=== PATIENT | male | born 1945 | race Two or more races ===

== ENCOUNTER 2016-08-18 09:40 | Outpatient (CLI) | payer MEDICARE, MEDICAID ==
[~2016-08-18 09:40] MED LIST: ALFU10TA PO; AMLO5TAB2 PO; ATOR40TA PO; CALC667C PO; CARV25TA PO; CLON0.5T4 PO; DIVA250T PO; ESOM40CA PO; FOLI0.8T23 PO; FURO80TA3 PO; INSU100V13 SQ; METO10TA8 PO; ONDA-25 PO; SEVE800T8 PO; SUCR1TAB PO; VILA40TA PO; ZOLP10TA6 PO
== END 2016-08-18 23:59 | disposition home or self-care (01) ==
LOC: WOU 09:40
PROVIDERS: ATTEND Podiatrist Foot & Ankle Surgery
DX: E11.621 Type 2 diabetes mellitus with foot ulcer (principal); L97.412 Non-pressure chronic ulcer of right heel and midfoot with fat layer exposed; E11.42 Type 2 diabetes mellitus with diabetic polyneuropathy; Z89.411 Acquired absence of right great toe; Z79.84 Long term (current) use of oral hypoglycemic drugs; Z79.899 Other long term (current) drug therapy; E11.22 Type 2 diabetes mellitus with diabetic chronic kidney disease; I12.0 Hypertensive chronic kidney disease with stage 5 chronic kidney disease or end stage renal disease; N18.6 End stage renal disease; Z99.2 Dependence on renal dialysis; Z83.3 Family history of diabetes mellitus; E11.52 Type 2 diabetes mellitus with diabetic peripheral angiopathy with gangrene
CPT/HCPCS: 11042; A6402

== ENCOUNTER 2016-08-21 12:34 | Inpatient (IN) | payer MEDICARE, MEDICAID ==
[~2016-08-21] VITALS: Ht 167.6 cm; Wt 103.4 kg
[2016-08-21] VITALS: BP 143/75
[2016-08-21 13:38] LABS: ANION GAP 17 (5-14); CALCIUM, SERUM 9.1 mg/dL (8.5-10.1); CARBON DIOXIDE 25 mmol/L (21-32); CHLORIDE 101 mmol/L (98-107); GFR 7 mL/min (>60); GLUCOSE 149 mg/dL (74-106); POTASSIUM 5.2 mmol/L (3.5-5.1); SODIUM SERUM 137 mmol/L (136-145); UREA NITROGEN, BLOOD 66 mg/dL (7-18)
[2016-08-21 13:42] LABS: CREATININE 7.8 mg/dL (0.6-1.3)
[2016-08-21 13:44] LABS: ALANINE AMINOTRANSFERASE 12 U/L (12-78); ALBUMIN 3.2 g/dL (3.4-5.0); ASPARTATE AMINOTRANSFERASE 9 U/L (15-37); BILIRUBIN,DIRECT 0.1 mg/dL (0.0-0.2); BILIRUBIN,TOTAL 0.2 mg/dL (0.2-1.0); INDIRECT BILIRUBIN 0.1 mg/dL (0.0-1.1); TOTAL PROTEIN, SERUM 6.7 g/dL (6.4-8.2)
[2016-08-21 13:46] LABS: TROPONIN I < 0.017 ng/mL (0.00-0.056)
[2016-08-21 13:56] LABS: INR 1.06 (0.87-1.13); PROTHROMBIN TIME 11.1 SECS (9.5-12.7)
[2016-08-21] MEDS ORDERED: ASPI-991 PO (13:56)
[2016-08-21] MEDS ORDERED: LIRA0.6P2 SQ (13:56)
[2016-08-21] MEDS ORDERED: DEXT1CAP3 PO (13:56)
[2016-08-21] MEDS ORDERED: MEMA14CA PO (13:56)
[2016-08-21] MEDS ORDERED: SITA50TA PO (13:56)
[2016-08-21] MEDS ORDERED: INSU3INS8 SQ (13:56)
[2016-08-21] MEDS ORDERED: OLME1TAB3 PO (13:56)
[2016-08-21] MEDS ORDERED: DIVA250T6 PO (13:56)
[2016-08-21 13:57] LABS: BASOPHILS % (AUTO) 0.3 % (0.0-2.0); DIFF TOTAL % 100 %; EOSINOPHILS # (AUTO) 0.2 /CMM (0.0-0.7); EOSINOPHILS % (AUTO) 1.8 % (0.0-6.0); HEMATOCRIT 33 % (39-51); LYMPHOCYTES # (AUTO) 2.4 /CMM (0.8-4.8); LYMPHOCYTES % (AUTO) 22.9 % (20.0-44.0); MEAN CORPUSCULAR HEMOGLOBIN 28 PG (26.0-33.0); MEAN CORPUSCULAR HGB CONC 33 g/dl (31.0-36.0); MEAN CORPUSCULAR VOLUME 85 fL (80-96); MONOCYTES # (AUTO) 0.8 /CMM (0.1-1.30); MONOCYTES % (AUTO) 7.6 % (2.0-12.0); NEUTROPHILS # (AUTO) 7.1 /CMM (1.8-8.9); NEUTROPHILS % (AUTO) 67.4 % (43.0-81.0); PLATELET COUNT (AUTO) 261 /CMM (150-450); WHITE BLOOD COUNT (AUTO) 10.6 K/uL (4.3-11.0)
[2016-08-21] MEDS ORDERED: SODIUM POLYSTYRENE SULFONATE 15 G/60 ML BOTTLE ONE (15:20)
[2016-08-21] MEDS ORDERED: SODIUM POLYSTYRENE SULFONATE 15 G/60 ML BOTTLE PO ONE (15:30)
[2016-08-21 16:13] VITALS: BP 152/70
[2016-08-21] MEDS ORDERED: IV D5/ 0.9% NACL 1,000 ML IV PRN (16:30)
[2016-08-21 17:00] VITALS: BP 152/70
[2016-08-21] MEDS ORDERED: clonazePAM 0.5 MG TABLET PO PRN (18:30)
[2016-08-21] MEDS ORDERED: ZOLPIDEM TARTRATE 10 MG TABLET PO PRN (18:30)
[2016-08-21] MEDS ORDERED: ONDANSETRON 4 MG TAB.RAPDIS PO PRN (19:00)
[2016-08-21] MEDS ORDERED: DEXTROSE 50%-WATER 50 ML DISP.SYRIN IV PRN (19:00)
[2016-08-21 20:00] VITALS: BP 130/70
[2016-08-21 20:20] VITALS: BP 130/70
[2016-08-21] MEDS: CALCIUM ACETATE 667 MG TABLET PO SCH (20:35)
[2016-08-21] MEDS: CARVEDILOL 12.5 MG TABLET PO SCH (20:36)
[2016-08-21] MEDS: DIVALPROEX SODIUM 250 MG TABLET.DR PO SCH (20:36)
[2016-08-21] MEDS: BLOOD SUGAR DIAGNOSTIC 1 EACH STRIP IN SCH (21:26)
[2016-08-21] MEDS: ATORVASTATIN 40 MG TABLET PO SCH (21:26)
[2016-08-21] MEDS: INSULIN DETEMIR 100 UNIT/ML CARTRIDGE SQ SCH (21:32)
[2016-08-21] MEDS ORDERED: IV SET PRIMARY PUMP SET 1 EA INFUS.SET MC ONE (22:17)
[2016-08-22] VITALS (7 sets, daily range): BP systolic 137–157; BP diastolic 63–85
[2016-08-22] MEDS: BLOOD SUGAR DIAGNOSTIC 1 EACH STRIP IN SCH ×4 (06:59→21:03)
[2016-08-22] MEDS: PANTOPRAZOLE 40 MG TABLET.DR PO SCH (07:30)
[2016-08-22] MEDS ORDERED: Medication Not On Formulary EA (Esomeprazole Mag Trihydrate (Nexium) 40 MG) PO SCH (07:30)
[2016-08-22 07:57] LABS: BASOPHILS # (AUTO) 0.1 /CMM (0.0-0.2); DIFF TOTAL % 100 %; EOSINOPHILS # (AUTO) 0.2 /CMM (0.0-0.7); EOSINOPHILS % (AUTO) 2.3 % (0.0-6.0); HEMATOCRIT 33 % (39-51); LYMPHOCYTES # (AUTO) 2.5 /CMM (0.8-4.8); LYMPHOCYTES % (AUTO) 25.2 % (20.0-44.0); MEAN CORPUSCULAR HEMOGLOBIN 28 PG (26.0-33.0); MEAN CORPUSCULAR HGB CONC 33 g/dl (31.0-36.0); MEAN CORPUSCULAR VOLUME 85 fL (80-96); MONOCYTES # (AUTO) 0.8 /CMM (0.1-1.30); MONOCYTES % (AUTO) 7.8 % (2.0-12.0); NEUTROPHILS # (AUTO) 6.3 /CMM (1.8-8.9); NEUTROPHILS % (AUTO) 63.7 % (43.0-81.0); PLATELET COUNT (AUTO) 261 /CMM (150-450); RED BLOOD CELL COUNT(AUTO) 3.89 MIL/uL (4.5-6.0); WHITE BLOOD COUNT (AUTO) 9.9 K/uL (4.3-11.0)
[2016-08-22 08:08] LABS: CALCIUM, SERUM 8.7 mg/dL (8.5-10.1); PHOSPHORUS 3.8 mg/dL (2.5-4.9); POTASSIUM 5.6 mmol/L (3.5-5.1)
[2016-08-22 08:13] LABS: INR 1.05 (0.87-1.13); PROTHROMBIN TIME 11.4 SECS (9.5-12.7)
[2016-08-22 08:16] LABS: CREATININE 8.6 mg/dL (0.6-1.3)
[2016-08-22] MEDS ORDERED: SITAGLIPTIN PHOSPHATE 50 MG TABLET PO SCH (09:00)
[2016-08-22] MEDS ORDERED: METOLAZONE 5 MG TABLET PO SCH (09:00)
[2016-08-22] MEDS: AMLODIPINE BESYLATE 5 MG TABLET PO SCH (09:19)
[2016-08-22] MEDS: SUCRALFATE 1 G TABLET PO SCH ×3 (09:20→17:00)
[2016-08-22] MEDS: CARVEDILOL 12.5 MG TABLET PO SCH ×2 (09:20→21:04)
[2016-08-22] MEDS: SEVELAMER CARBONATE 800 MG TABLET PO SCH ×3 (09:21→18:30)
[2016-08-22] MEDS: FUROSEMIDE 80 MG TABLET PO SCH ×2 (09:21→17:00)
[2016-08-22] MEDS: VIT B CMPLX 3/FA/VIT C/BIOTIN 1 TAB TABLET PO SCH (09:21)
[2016-08-22] MEDS: DIVALPROEX SODIUM 250 MG TABLET.DR PO SCH ×2 (09:22→21:04)
[2016-08-22] MEDS: SITAGLIPTIN PHOSPHATE 50 MG TABLET PO SCH (09:22)
[2016-08-22] MEDS: CALCIUM ACETATE 667 MG TABLET PO SCH ×3 (09:22→18:30)
[2016-08-22] MEDS: ASPIRIN EC 81 MG TABLET.DR PO SCH (09:23)
[2016-08-22] MEDS ORDERED: Z GUARD REMEDY 2 OZ OINT TP PRN (10:30)
[2016-08-22] MEDS: Z GUARD REMEDY 2 OZ OINT TP SCH ×2 (10:30→17:00)
[2016-08-22] MEDS ORDERED: SODIUM POLYSTYRENE SULFONATE 15 G/60 ML BOTTLE PO ONE (13:00)
[2016-08-22] MEDS: INSULIN REGULAR, HUMAN 100 UNIT/ML 3 ML VIAL SQ PRN ×3 (15:17→21:08)
[2016-08-22] MEDS: HYDROCHLOROTHIAZIDE PO SCH (18:24)
[2016-08-22] MEDS: OLMESARTAN PO SCH (18:24)
[2016-08-22] MEDS ORDERED: ANESTHESIA TRAY IN PYXIS 1 EA TRAY MC ONE (20:37)
[2016-08-22] MEDS: QUINIDINE PO SCH (21:04)
[2016-08-22] MEDS: DEXTROMETHORPHAN HBR PO SCH (21:04)
[2016-08-22] MEDS: ATORVASTATIN 40 MG TABLET PO SCH (21:04)
[2016-08-22] MEDS: INSULIN DETEMIR 100 UNIT/ML CARTRIDGE SQ SCH (22:00)
[2016-08-23] MEDS: BLOOD SUGAR DIAGNOSTIC 1 EACH STRIP IN SCH ×3 (05:41→17:29)
[2016-08-23] MEDS ORDERED: LIDOCAINE HCL/PF 1% 30 ML SDV ONE ×2 (07:54→12:27)
[2016-08-23 08:00] VITALS: BP 135/79
[2016-08-23 08:21] LABS: BASOPHILS % (AUTO) 0.3 % (0.0-2.0); DIFF TOTAL % 100 %; EOSINOPHILS # (AUTO) 0.3 /CMM (0.0-0.7); HEMATOCRIT 36 % (39-51); LYMPHOCYTES # (AUTO) 2.1 /CMM (0.8-4.8); MEAN CORPUSCULAR HEMOGLOBIN 28 PG (26.0-33.0); MEAN CORPUSCULAR HGB CONC 34 g/dl (31.0-36.0); MEAN CORPUSCULAR VOLUME 84 fL (80-96); MONOCYTES # (AUTO) 0.9 /CMM (0.1-1.30); MONOCYTES % (AUTO) 7.4 % (2.0-12.0); NEUTROPHILS # (AUTO) 9.3 /CMM (1.8-8.9); NEUTROPHILS % (AUTO) 73.3 % (43.0-81.0); PLATELET COUNT (AUTO) 258 /CMM (150-450); RED BLOOD CELL COUNT(AUTO) 4.23 MIL/uL (4.5-6.0); WHITE BLOOD COUNT (AUTO) 12.6 K/uL (4.3-11.0)
[2016-08-23 08:25] LABS: CALCIUM, SERUM 8.7 mg/dL (8.5-10.1); PHOSPHORUS 4.5 mg/dL (2.5-4.9); POTASSIUM 4.9 mmol/L (3.5-5.1)
[2016-08-23 08:26] LABS: CREATININE 9.1 mg/dL (0.6-1.3)
[2016-08-23] MEDS ORDERED: SUCCINYLCHOLINE CHLORIDE 20 MG/ML VIAL ONE (08:43)
[2016-08-23] MEDS ORDERED: FENTANYL PF 100MCG/2ML AMPUL ONE (08:43)
[2016-08-23] MEDS ORDERED: MIDAZOLAM HCL 2 MG/2ML VIAL ONE (08:43)
[2016-08-23] MEDS: FUROSEMIDE 80 MG TABLET PO SCH ×2 (09:00→17:00)
[2016-08-23] MEDS: HYDROCHLOROTHIAZIDE PO SCH (09:00)
[2016-08-23] MEDS ORDERED: METOLAZONE 2.5 MG TABLET PO SCH (09:00)
[2016-08-23] MEDS ORDERED: Liraglutide (Victoza 3-Pak) 1.8 MG SQ SCH (09:00)
[2016-08-23] MEDS: Z GUARD REMEDY 2 OZ OINT TP SCH ×2 (09:00→16:38)
[2016-08-23] MEDS: OLMESARTAN PO SCH (09:00)
[2016-08-23] MEDS ORDERED: Vilazodone Hydrochloride (Viibryd) 40 MG PO SCH (09:00)
[2016-08-23] MEDS ORDERED: HEPARIN SODIUM, PORCINE 1,000 UNIT/ML VIAL ONE ×3 (09:48→12:27)
[2016-08-23] MEDS ORDERED: BUPIVACAINE 0.5 % PF 150 MG/30 ML VIAL ONE (11:13)
[2016-08-23] MEDS ORDERED: GELATIN SPONGE,ABSORBABLE 1 EA SPONGE TP ONE (11:15)
[2016-08-23] MEDS: SUCRALFATE 1 G TABLET PO SCH ×3 (13:00→17:00)
[2016-08-23] MEDS: CALCIUM ACETATE 667 MG TABLET PO SCH ×3 (13:00→18:45)
[2016-08-23] MEDS: SEVELAMER CARBONATE 800 MG TABLET PO SCH ×3 (13:00→18:45)
[2016-08-23 13:40] VITALS: BP 138/67
[2016-08-23] MEDS: ASPIRIN EC 81 MG TABLET.DR PO SCH (16:19)
[2016-08-23] MEDS: VIT B CMPLX 3/FA/VIT C/BIOTIN 1 TAB TABLET PO SCH (16:19)
[2016-08-23] MEDS: DIVALPROEX SODIUM 250 MG TABLET.DR PO SCH ×2 (16:21→21:00)
[2016-08-23] MEDS: SITAGLIPTIN PHOSPHATE 50 MG TABLET PO SCH (16:21)
[2016-08-23] MEDS: AMLODIPINE BESYLATE 5 MG TABLET PO SCH (16:22)
[2016-08-23] MEDS: CARVEDILOL 12.5 MG TABLET PO SCH (16:22)
[2016-08-23] MEDS: PANTOPRAZOLE 40 MG TABLET.DR PO SCH (16:22)
[2016-08-23] MEDS: DEXTROMETHORPHAN HBR PO SCH ×2 (16:35→21:00)
[2016-08-23] MEDS: QUINIDINE PO SCH ×2 (16:35→21:00)
[2016-08-23 17:05] VITALS: BP 153/69
[2016-08-23] MEDS: INSULIN REGULAR, HUMAN 100 UNIT/ML 3 ML VIAL SQ PRN (17:34)
[2016-08-23 20:00] VITALS: BP 122/56
[2016-08-23] MEDS ORDERED: MUPIROCIN OINT 2% 22 GM TUBE SCH (21:00)
[2016-08-23] MEDS: INSULIN DETEMIR 100 UNIT/ML CARTRIDGE SQ SCH (22:00)
[2016-08-24] MEDS: CARVEDILOL 12.5 MG TABLET PO SCH (02:22)
[2016-08-24] MEDS: BLOOD SUGAR DIAGNOSTIC 1 EACH STRIP IN SCH ×2 (02:23→06:36)
[2016-08-24] MEDS: ATORVASTATIN 40 MG TABLET PO SCH (02:23)
[2016-08-24] MEDS: INSULIN REGULAR, HUMAN 100 UNIT/ML 3 ML VIAL SQ PRN ×2 (02:27→06:39)
[2016-08-24 08:00] VITALS: BP 135/54
[2016-08-24 10:21] VITALS: BP 133/78
== END 2016-08-24 11:08 | disposition home or self-care (01) | DRG 252 ==
LOC: ER 12:38 → TELE 15:06 → MED 08-22 08:54
PROVIDERS: ADMIT Internal Medicine Nephrology; ATTEND Internal Medicine Nephrology
PROC: 05H533Z Insertion of Infusion Device into Right Subclavian Vein, Percutaneous Approach (ICD-10-PCS; 2016-08-21)
PROC: 06H033Z Insertion of Infusion Device into Inferior Vena Cava, Percutaneous Approach (ICD-10-PCS; 2016-08-23)
PROC: B519YZA Fluoroscopy of Inferior Vena Cava using Other Contrast, Guidance (ICD-10-PCS; 2016-08-23)
PROC: 5A1D00Z (ICD-10-PCS; 2016-08-23)
PROC: 05CF3ZZ Extirpation of Matter from Left Cephalic Vein, Percutaneous Approach (ICD-10-PCS; principal; 2016-08-23 08:00)
PROC: 057F3ZZ Dilation of Left Cephalic Vein, Percutaneous Approach (ICD-10-PCS; 2016-08-23 08:00)
DX: T82.868A Thrombosis due to vascular prosthetic devices, implants and grafts, initial encounter (principal); N18.6 End stage renal disease; I12.0 Hypertensive chronic kidney disease with stage 5 chronic kidney disease or end stage renal disease; E11.22 Type 2 diabetes mellitus with diabetic chronic kidney disease; E87.5 Hyperkalemia; E78.5 Hyperlipidemia, unspecified; I25.10 Atherosclerotic heart disease of native coronary artery without angina pectoris; Y83.2 Surgical operation with anastomosis, bypass or graft as the cause of abnormal reaction of the patient, or of later complication, without mention of misadventure at the time of the procedure; Y71.2 Prosthetic and other implants, materials and accessory cardiovascular devices associated with adverse incidents; D63.8 Anemia in other chronic diseases classified elsewhere; E11.621 Type 2 diabetes mellitus with foot ulcer; E11.42 Type 2 diabetes mellitus with diabetic polyneuropathy; L97.512 Non-pressure chronic ulcer of other part of right foot with fat layer exposed; Z99.2 Dependence on renal dialysis; Z89.411 Acquired absence of right great toe; Y92.009 Unspecified place in unspecified non-institutional (private) residence as the place of occurrence of the external cause
CPT/HCPCS: 36415; 71010-TC; 73550-TC; 80048-TC; 80076-TC; 82962-TC; 83735-TC; 84100-TC; 84484-TC; 85025-TC; 85610-TC; 85730-TC; 86850-TC; 86901; 87081-TC; 90935-TC; 97001-TC; A4606; A6402; C1750; C1757; C1768; C1769; J0330; J1644; J1815; J2250; J2370; J2704; J3010; J3490; J7042; Z7610

== ENCOUNTER 2016-08-28 12:52 | Outpatient (CLI) | payer MEDICARE, MEDICAID ==
[~2016-08-28 12:52] MED LIST changes: +ASPI-991 PO; +DEXT1CAP3 PO; -DIVA250T PO; +DIVA250T6 PO; -INSU100V13 SQ; +INSU100V7 SQ; +INSU3INS8 SQ; +LIRA0.6P2 SQ; +MEMA14CA PO; +OLME1TAB3 PO; +SITA50TA PO; -SUCR1TAB PO; +SUCR1TAB26 PO
== END 2016-08-28 23:59 | disposition home health service (06) ==
LOC: WOU 12:52
PROVIDERS: ATTEND Podiatrist Foot & Ankle Surgery
DX: E11.621 Type 2 diabetes mellitus with foot ulcer (principal); L97.512 Non-pressure chronic ulcer of other part of right foot with fat layer exposed; Z89.411 Acquired absence of right great toe; E11.42 Type 2 diabetes mellitus with diabetic polyneuropathy; E11.22 Type 2 diabetes mellitus with diabetic chronic kidney disease; I12.0 Hypertensive chronic kidney disease with stage 5 chronic kidney disease or end stage renal disease; N18.6 End stage renal disease; Z99.2 Dependence on renal dialysis; Z87.891 Personal history of nicotine dependence; Z79.84 Long term (current) use of oral hypoglycemic drugs; Z79.899 Other long term (current) drug therapy
CPT/HCPCS: 11042; A6402

== ENCOUNTER 2016-08-30 19:53 | Emergency (ER) | payer MEDICARE, MEDICAID ==
[~2016-08-30] VITALS: Ht 167.6 cm; Wt 93.0 kg
[2016-08-30] MEDS ORDERED: LIDOCAINE 1%-EPI 1:100,000 20 ML VIAL ONE (19:59)
[2016-08-30] MEDS ORDERED: GELATIN SPONGE,ABSORBABLE 1 SPONGE SPONGE TP ONE (20:00)
[2016-08-30 22:14] VITALS: BP 138/86
== END 2016-08-30 22:14 | disposition home or self-care (01) ==
LOC: ER 19:55
DX: T82.41XA Breakdown (mechanical) of vascular dialysis catheter, initial encounter (principal); I10 Essential (primary) hypertension; E11.9 Type 2 diabetes mellitus without complications; Z79.4 Long term (current) use of insulin; Z79.82 Long term (current) use of aspirin
CPT/HCPCS: 99283; A4606; A6402; J3490; Z7610

== ENCOUNTER 2016-09-03 10:58 | Outpatient (CLI) | payer MEDICARE, MEDICAID | END 2016-09-03 23:59 | disposition home or self-care (01) | LOC: CARD 10:58 | PROVIDERS: ATTEND Internal Medicine | DX: N18.6 End stage renal disease (principal) ==

== ENCOUNTER 2016-09-08 09:35 | Outpatient (CLI) | payer MEDICARE, MEDICAID | END 2016-09-08 23:59 | disposition home health service (06) | LOC: WOU 09:35 | PROVIDERS: ATTEND Podiatrist Foot & Ankle Surgery | DX: E11.621 Type 2 diabetes mellitus with foot ulcer (principal); L97.512 Non-pressure chronic ulcer of other part of right foot with fat layer exposed; E11.42 Type 2 diabetes mellitus with diabetic polyneuropathy; E11.52 Type 2 diabetes mellitus with diabetic peripheral angiopathy with gangrene; E11.22 Type 2 diabetes mellitus with diabetic chronic kidney disease; I12.0 Hypertensive chronic kidney disease with stage 5 chronic kidney disease or end stage renal disease; N18.6 End stage renal disease; Z99.2 Dependence on renal dialysis | CPT/HCPCS: 11042; A6402 ==

== ENCOUNTER 2016-09-30 12:39 | Inpatient (IN) | payer MEDICARE, MEDICAID ==
[~2016-09-30] VITALS: Ht 165.1 cm; Wt 96.4 kg
[2016-09-30 13:32] LABS: BASOPHILS # (AUTO) 0.1 /CMM (0.0-0.2); BASOPHILS % (AUTO) 0.5 % (0.0-2.0); DIFF TOTAL % 100 %; EOSINOPHILS # (AUTO) 0.3 /CMM (0.0-0.7); EOSINOPHILS % (AUTO) 1.6 % (0.0-6.0); HEMATOCRIT 34 % (39-51); HEMOGLOBIN 11.2 g/dL (13.5-17.5); LYMPHOCYTES # (AUTO) 2.2 /CMM (0.8-4.8); LYMPHOCYTES % (AUTO) 11.1 % (20.0-44.0); MEAN CORPUSCULAR HEMOGLOBIN 29 PG (26.0-33.0); MEAN CORPUSCULAR HGB CONC 33 g/dl (31.0-36.0); MEAN CORPUSCULAR VOLUME 89 fL (80-96); MONOCYTES # (AUTO) 0.9 /CMM (0.1-1.30); MONOCYTES % (AUTO) 4.8 % (2.0-12.0); NEUTROPHILS # (AUTO) 15.9 /CMM (1.8-8.9); PLATELET COUNT (AUTO) 197 /CMM (150-450); RED BLOOD CELL COUNT(AUTO) 3.82 MIL/uL (4.5-6.0); WHITE BLOOD COUNT (AUTO) 19.4 K/uL (4.3-11.0)
[2016-09-30 13:42] LABS: CREATININE 6.5 mg/dL (0.6-1.3); POTASSIUM 5.2 mmol/L (3.5-5.1)
[2016-09-30 13:45] LABS: INR 1.36 (0.87-1.13); PROTHROMBIN TIME 14.3 SECS (9.5-12.7)
[2016-09-30 14:08] LABS: PARTIAL THROMBOPLASTIN TIME > 240 SEC (23-34)
[2016-09-30] MEDS ORDERED: DEXTROSE 50%-WATER 50 ML DISP.SYRIN IV PRN (15:00)
[2016-09-30] MEDS ORDERED: MAG HYDROX/AL HYDROX/SIMETH 30 ML UDC PO PRN (15:00)
[2016-09-30] MEDS ORDERED: clonazePAM 0.5 MG TABLET PO PRN (15:00)
[2016-09-30] MEDS ORDERED: HYDROCODONE/APAP 5/325MG 1 EACH TABLET PO PRN (15:00)
[2016-09-30] MEDS ORDERED: Z GUARD REMEDY 2 OZ OINT TP PRN (15:00)
[2016-09-30] MEDS ORDERED: ACETAMINOPHEN 325 MG TABLET PO PRN (15:00)
[2016-09-30] MEDS ORDERED: ZOLPIDEM TARTRATE 5 MG TABLET PO PRN (15:00)
[2016-09-30] MEDS ORDERED: ONDANSETRON HCL/PF 4 MG/2 ML VIAL IVP PRN (15:00)
[2016-09-30] MEDS ORDERED: MAGNESIUM HYDROXIDE 30 ML UDC PO PRN (15:00)
[2016-09-30] MEDS ORDERED: Medication Not On Formulary EA (Ondansetron Hcl 4 MG) PO PRN (15:00)
[2016-09-30] MEDS ORDERED: HEPARIN SODIUM, PORCINE 5000 UNITS/1 ML VIAL SQ SCH (17:00)
[2016-09-30] MEDS ORDERED: BLOOD SUGAR DIAGNOSTIC 1 EACH STRIP IN SCH (17:30)
[2016-09-30 20:00] VITALS: BP 103/52
[2016-09-30] MEDS: ATORVASTATIN 40 MG TABLET PO SCH (21:09)
[2016-09-30] MEDS: SUCRALFATE 1 G TABLET PO SCH (21:09)
[2016-09-30] MEDS: SEVELAMER CARBONATE 800 MG TABLET PO SCH (21:09)
[2016-09-30] MEDS: BLOOD SUGAR DIAGNOSTIC 1 EACH STRIP VI SCH ×2 (21:10→21:55)
[2016-09-30] MEDS: FUROSEMIDE 80 MG TABLET PO SCH (21:10)
[2016-09-30] MEDS: DIVALPROEX SODIUM 250 MG TABLET.DR PO SCH (21:10)
[2016-09-30] MEDS: CARVEDILOL 12.5 MG TABLET PO SCH (21:12)
[2016-09-30] MEDS: INSULIN DETEMIR 100 UNIT/ML CARTRIDGE SQ SCH (21:51)
[2016-09-30] MEDS: *INSULIN REGULAR(HUMULIN R)HUM 100 UNIT/ML VIAL SQ PRN (21:54)
[2016-10-01] MEDS: BLOOD SUGAR DIAGNOSTIC 1 EACH STRIP VI SCH ×4 (06:30→21:37)
[2016-10-01] MEDS ORDERED: Medication Not On Formulary EA (Esomeprazole Mag Trihydrate (Nexium) 40 MG) PO SCH (07:30)
[2016-10-01 07:48] LABS: INR 1.03 (0.87-1.13); PROTHROMBIN TIME 11.1 SECS (9.5-12.7)
[2016-10-01 07:49] LABS: BASOPHILS % (AUTO) 0.2 % (0.0-2.0); DIFF TOTAL % 100 %; EOSINOPHILS # (AUTO) 0.2 /CMM (0.0-0.7); EOSINOPHILS % (AUTO) 1.8 % (0.0-6.0); HEMATOCRIT 30 % (39-51); HEMOGLOBIN 10.1 g/dL (13.5-17.5); LYMPHOCYTES # (AUTO) 2.1 /CMM (0.8-4.8); LYMPHOCYTES % (AUTO) 15.5 % (20.0-44.0); MEAN CORPUSCULAR HEMOGLOBIN 29 PG (26.0-33.0); MEAN CORPUSCULAR HGB CONC 33 g/dl (31.0-36.0); MEAN CORPUSCULAR VOLUME 88 fL (80-96); MONOCYTES % (AUTO) 7.6 % (2.0-12.0); NEUTROPHILS % (AUTO) 74.9 % (43.0-81.0); PLATELET COUNT (AUTO) 221 /CMM (150-450); RED BLOOD CELL COUNT(AUTO) 3.44 MIL/uL (4.5-6.0); WHITE BLOOD COUNT (AUTO) 13.4 K/uL (4.3-11.0)
[2016-10-01 07:51] LABS: CALCIUM, SERUM 9.4 mg/dL (8.5-10.1)
[2016-10-01 08:00] VITALS: BP 136/58
[2016-10-01] MEDS: CALCIUM ACETATE 667 MG TABLET PO SCH ×3 (08:00→17:38)
[2016-10-01] MEDS: SEVELAMER CARBONATE 800 MG TABLET PO SCH ×3 (08:00→17:39)
[2016-10-01 08:26] LABS: THYROID STIMULATING HORMONE 1.042 uIU/mL (0.358-3.74)
[2016-10-01] MEDS: METOLAZONE 2.5 MG TABLET PO SCH (09:33)
[2016-10-01] MEDS: VIT B CMPLX 3/FA/VIT C/BIOTIN 1 TAB TABLET PO SCH (09:34)
[2016-10-01] MEDS: ASPIRIN EC 81 MG TABLET.DR PO SCH (09:34)
[2016-10-01] MEDS: DIVALPROEX SODIUM 250 MG TABLET.DR PO SCH ×2 (09:34→21:44)
[2016-10-01] MEDS: SUCRALFATE 1 G TABLET PO SCH ×3 (09:35→17:38)
[2016-10-01] MEDS: FUROSEMIDE 80 MG TABLET PO SCH ×2 (09:35→17:38)
[2016-10-01] MEDS: PANTOPRAZOLE 40 MG TABLET.DR PO SCH (09:35)
[2016-10-01] MEDS: CARVEDILOL 12.5 MG TABLET PO SCH ×2 (09:41→21:00)
[2016-10-01] MEDS: AMLODIPINE BESYLATE 5 MG TABLET PO SCH (11:00)
[2016-10-01] MEDS ORDERED: SODIUM POLYSTYRENE SULFONATE 15 G/60 ML BOTTLE PO ONE (12:00)
[2016-10-01 16:00] VITALS: BP 141/70
[2016-10-01] MEDS: SILVER SULFADIAZINE CREAM 25 GM TUBE TP SCH (16:00)
[2016-10-01 16:57] VITALS: BP 141/70
[2016-10-01] MEDS: INSULIN REGULAR, HUMAN 100 UNIT/ML 3 ML VIAL SQ PRN (17:43)
[2016-10-01 20:00] VITALS: BP 104/54
[2016-10-01] MEDS: INSULIN DETEMIR 100 UNIT/ML CARTRIDGE SQ SCH (21:38)
[2016-10-01] MEDS: *INSULIN REGULAR(HUMULIN R)HUM 100 UNIT/ML VIAL SQ PRN (21:40)
[2016-10-01] MEDS: ATORVASTATIN 40 MG TABLET PO SCH (21:45)
[2016-10-02] MEDS: PANTOPRAZOLE 40 MG TABLET.DR PO SCH (06:31)
[2016-10-02] MEDS: BLOOD SUGAR DIAGNOSTIC 1 EACH STRIP VI SCH ×4 (06:31→21:28)
[2016-10-02] MEDS: *INSULIN REGULAR(HUMULIN R)HUM 100 UNIT/ML VIAL SQ PRN ×3 (06:33→21:25)
[2016-10-02 08:00] VITALS: BP 136/72
[2016-10-02] MEDS: CALCIUM ACETATE 667 MG TABLET PO SCH ×3 (08:00→17:00)
[2016-10-02] MEDS: SEVELAMER CARBONATE 800 MG TABLET PO SCH ×3 (08:00→17:00)
[2016-10-02 08:03] LABS: BASOPHILS % (AUTO) 0.3 % (0.0-2.0); DIFF TOTAL % 100 %; EOSINOPHILS # (AUTO) 0.1 /CMM (0.0-0.7); EOSINOPHILS % (AUTO) 1.4 % (0.0-6.0); HEMATOCRIT 33 % (39-51); HEMOGLOBIN 10.7 g/dL (13.5-17.5); LYMPHOCYTES # (AUTO) 1.8 /CMM (0.8-4.8); LYMPHOCYTES % (AUTO) 16.7 % (20.0-44.0); MEAN CORPUSCULAR HEMOGLOBIN 29 PG (26.0-33.0); MEAN CORPUSCULAR HGB CONC 33 g/dl (31.0-36.0); MEAN CORPUSCULAR VOLUME 89 fL (80-96); MONOCYTES # (AUTO) 1.1 /CMM (0.1-1.30); MONOCYTES % (AUTO) 9.6 % (2.0-12.0); PLATELET COUNT (AUTO) 213 /CMM (150-450); RED BLOOD CELL COUNT(AUTO) 3.68 MIL/uL (4.5-6.0); WHITE BLOOD COUNT (AUTO) 11.1 K/uL (4.3-11.0)
[2016-10-02 08:26] LABS: INR 1.05 (0.87-1.13); PROTHROMBIN TIME 11.4 SECS (9.5-12.7)
[2016-10-02 08:31] LABS: CALCIUM, SERUM 9.2 mg/dL (8.5-10.1); CREATININE 7.2 mg/dL (0.6-1.3); POTASSIUM 4.8 mmol/L (3.5-5.1)
[2016-10-02] MEDS: VIT B CMPLX 3/FA/VIT C/BIOTIN 1 TAB TABLET PO SCH (09:00)
[2016-10-02] MEDS: DIVALPROEX SODIUM 250 MG TABLET.DR PO SCH ×2 (09:00→21:15)
[2016-10-02] MEDS: METOLAZONE 2.5 MG TABLET PO SCH (09:00)
[2016-10-02] MEDS: FUROSEMIDE 80 MG TABLET PO SCH ×2 (09:00→16:56)
[2016-10-02] MEDS: CARVEDILOL 12.5 MG TABLET PO SCH ×2 (09:00→21:00)
[2016-10-02] MEDS: ASPIRIN EC 81 MG TABLET.DR PO SCH (09:00)
[2016-10-02] MEDS: SUCRALFATE 1 G TABLET PO SCH ×3 (09:00→16:56)
[2016-10-02] MEDS: SILVER SULFADIAZINE CREAM 25 GM TUBE TP SCH (09:00)
[2016-10-02] MEDS: AMLODIPINE BESYLATE 5 MG TABLET PO SCH (09:00)
[2016-10-02] MEDS: BENICAR HCT PO SCH (11:30)
[2016-10-02] MEDS: NAMENDA 14 MG PO SCH (11:30)
[2016-10-02] MEDS: ALFUZOSIN 10 MG PO SCH (11:30)
[2016-10-02] MEDS ORDERED: LIDOCAINE HCL/PF 1% 30 ML SDV ONE (14:02)
[2016-10-02] MEDS ORDERED: HEPARIN SODIUM, PORCINE 1,000 UNIT/ML VIAL ONE (14:02)
[2016-10-02] MEDS ORDERED: FENTANYL PF 100MCG/2ML AMPUL ONE (14:23)
[2016-10-02] MEDS ORDERED: MIDAZOLAM HCL 2 MG/2ML VIAL ONE (14:23)
[2016-10-02] MEDS ORDERED: HEMOSTATIC MATRIX 10 ML 1 EACH PAD MC ONE (14:52)
[2016-10-02] MEDS ORDERED: GELATIN SPONGE,ABSORBABLE 1 EA SPONGE TP ONE (14:52)
[2016-10-02] MEDS ORDERED: THROMBIN (BOVINE) 5,000 UNITS VIAL TP ONE (14:53)
[2016-10-02] MEDS ORDERED: ANESTHESIA TRAY IN PYXIS 1 EA TRAY MC ONE (14:56)
[2016-10-02] MEDS ORDERED: CELLULOSE,OXIDIZED 1 EA PACK MC ONE (14:56)
[2016-10-02 16:00] VITALS: BP 158/88
[2016-10-02 16:14] VITALS: BP 158/88
[2016-10-02] MEDS: NUEDEXTA PO SCH (16:56)
[2016-10-02 18:00] VITALS: BP 158/88
[2016-10-02 20:00] VITALS: BP 102/58
[2016-10-02 20:41] VITALS: BP 102/58
[2016-10-02] MEDS: ATORVASTATIN 40 MG TABLET PO SCH (21:14)
[2016-10-02] MEDS: MUPIROCIN OINT 2% 22 GM TUBE SCH (21:18)
[2016-10-02] MEDS: INSULIN DETEMIR 100 UNIT/ML CARTRIDGE SQ SCH (21:24)
[2016-10-03] MEDS: INSULIN REGULAR, HUMAN 100 UNIT/ML 3 ML VIAL SQ PRN (06:21)
[2016-10-03] MEDS: BLOOD SUGAR DIAGNOSTIC 1 EACH STRIP VI SCH (07:46)
[2016-10-03 08:00] VITALS: BP_SYST 114; BP_SYST 116; BP_DIAS 36; BP_DIAS 45
[2016-10-03 08:19] LABS: CALCIUM, SERUM 8.7 mg/dL (8.5-10.1); CREATININE 5.3 mg/dL (0.6-1.3); POTASSIUM 3.8 mmol/L (3.5-5.1)
[2016-10-03] MEDS: PANTOPRAZOLE 40 MG TABLET.DR PO SCH (08:30)
[2016-10-03] MEDS: VIT B CMPLX 3/FA/VIT C/BIOTIN 1 TAB TABLET PO SCH (08:31)
[2016-10-03] MEDS: SUCRALFATE 1 G TABLET PO SCH (08:31)
[2016-10-03] MEDS: ASPIRIN EC 81 MG TABLET.DR PO SCH (08:31)
[2016-10-03] MEDS: CALCIUM ACETATE 667 MG TABLET PO SCH (08:31)
[2016-10-03] MEDS: SEVELAMER CARBONATE 800 MG TABLET PO SCH (08:31)
[2016-10-03] MEDS: METOLAZONE 2.5 MG TABLET PO SCH (08:32)
[2016-10-03] MEDS: CARVEDILOL 12.5 MG TABLET PO SCH (08:32)
[2016-10-03] MEDS: DIVALPROEX SODIUM 250 MG TABLET.DR PO SCH (08:32)
[2016-10-03] MEDS: AMLODIPINE BESYLATE 5 MG TABLET PO SCH (08:34)
[2016-10-03] MEDS: FUROSEMIDE 80 MG TABLET PO SCH (08:34)
[2016-10-03] MEDS: MUPIROCIN OINT 2% 22 GM TUBE SCH (08:36)
[2016-10-03] MEDS: NAMENDA 14 MG PO SCH (08:36)
[2016-10-03] MEDS: BENICAR HCT PO SCH (08:36)
[2016-10-03] MEDS: ALFUZOSIN 10 MG PO SCH (08:36)
[2016-10-03] MEDS: NUEDEXTA PO SCH (08:36)
[2016-10-03] MEDS: SILVER SULFADIAZINE CREAM 25 GM TUBE TP SCH (08:37)
[2016-10-03] MEDS ORDERED: VICTOZA SQ SCH (09:00)
[2016-10-03] MEDS ORDERED: VIIBRYD 40 MG PO SCH (09:00)
[2016-10-03 11:20] VITALS: BP 95/55
== END 2016-10-03 11:20 | disposition home or self-care (01) | DRG 264 ==
LOC: ER 12:40 → MED 18:31
PROVIDERS: ADMIT Student in an Organized Health Care Education/Training Program; ATTEND Student in an Organized Health Care Education/Training Program
PROC: 5A1D60Z (ICD-10-PCS; 2016-10-01)
PROC: 03170ZD Bypass Right Brachial Artery to Upper Arm Vein, Open Approach (ICD-10-PCS; principal; 2016-10-02 14:52)
DX: T82.510A Breakdown (mechanical) of surgically created arteriovenous fistula, initial encounter (principal); N18.6 End stage renal disease; I12.0 Hypertensive chronic kidney disease with stage 5 chronic kidney disease or end stage renal disease; I25.10 Atherosclerotic heart disease of native coronary artery without angina pectoris; Y71.2 Prosthetic and other implants, materials and accessory cardiovascular devices associated with adverse incidents; Y83.2 Surgical operation with anastomosis, bypass or graft as the cause of abnormal reaction of the patient, or of later complication, without mention of misadventure at the time of the procedure; E11.22 Type 2 diabetes mellitus with diabetic chronic kidney disease; E87.5 Hyperkalemia; Z99.2 Dependence on renal dialysis; D72.829 Elevated white blood cell count, unspecified; E11.621 Type 2 diabetes mellitus with foot ulcer; E78.5 Hyperlipidemia, unspecified; F03.90 Unspecified dementia, unspecified severity, without behavioral disturbance, psychotic disturbance, mood disturbance, and anxiety; L97.519 Non-pressure chronic ulcer of other part of right foot with unspecified severity; T82.590A Other mechanical complication of surgically created arteriovenous fistula, initial encounter; Y92.009 Unspecified place in unspecified non-institutional (private) residence as the place of occurrence of the external cause; L97.511 Non-pressure chronic ulcer of other part of right foot limited to breakdown of skin
CPT/HCPCS: 36415; 71010-TC; 80048-TC; 80061-TC; 82962-TC; 83735-TC; 84443-TC; 85025-TC; 85610-TC; 85730-TC; 87040-TC; 87081-TC; 93307-TC; 93880-TC; A4606; A6402; A6403; J1644; J1815; J2250; J3010; J3490; Z7610

== ENCOUNTER 2016-10-03 19:19 | Inpatient (IN) | payer MEDICARE, MEDICAID ==
[2016-10-03] MEDS ORDERED: IV SET PRIMARY 1 EA INFUS.SET MC ONE ×2 (19:44→20:54)
[2016-10-03] MEDS ORDERED: IV NS 0.9% 500 ML IV ONE (19:44)
[2016-10-03] MEDS ORDERED: IV NS 0.9% 500 ML BAG IV ONE (20:00)
[2016-10-03] MEDS ORDERED: IV SET PRIMARY PUMP SET 1 EA INFUS.SET MC ONE ×2 (20:45→21:19)
[2016-10-03] MEDS ORDERED: CEFEPIME 1 GM VIAL ONE (20:45)
[2016-10-03] MEDS ORDERED: IV D5W 50 ML IV ONE (20:45)
[2016-10-03] MEDS ORDERED: IV NS 0.9% 3,000 ML ONE (20:54)
[2016-10-03] MEDS ORDERED: NOREPINEPHRINE 8 MG in IV D5W 500 ML IV ONE (21:00)
[2016-10-03] MEDS ORDERED: VANCOMYCIN 1 GM in IV D5W 250 ML IV ONE (21:00)
[2016-10-03] MEDS ORDERED: IV NS 0.9% 1,000 ML BAG IV ONE (21:00)
[2016-10-03] MEDS ORDERED: CEFEPIME 1 GM in IV D5W 50 ML IV ONE (21:00)
[2016-10-03] MEDS ORDERED: VANCOMYCIN 1 GM VIAL ONE (21:18)
[2016-10-03] MEDS ORDERED: IV D5W 250 ML IV ONE (21:19)
[2016-10-03] MEDS ORDERED: IV NS 0.9% 1,000 ML IV PRN (22:49)
[2016-10-03] MEDS ORDERED: MAG HYDROX/AL HYDROX/SIMETH 30 ML UDC PO PRN (23:00)
[2016-10-03] MEDS ORDERED: ZOLPIDEM TARTRATE 10 MG TABLET PO PRN (23:00)
[2016-10-03] MEDS ORDERED: MAGNESIUM HYDROXIDE 30 ML UDC PO PRN (23:00)
[2016-10-03] MEDS ORDERED: ONDANSETRON HCL/PF 4 MG/2 ML VIAL IVP PRN (23:00)
[2016-10-03] MEDS ORDERED: clonazePAM 0.5 MG TABLET PO PRN (23:00)
[2016-10-03] MEDS ORDERED: Z GUARD REMEDY 2 OZ OINT TP PRN (23:00)
[2016-10-03] MEDS ORDERED: ACETAMINOPHEN 325 MG TABLET PO PRN (23:00)
[2016-10-03] MEDS ORDERED: HYDROCODONE/APAP 5/325MG 1 EACH TABLET PO PRN (23:00)
[2016-10-03] MEDS ORDERED: INSULIN REGULAR, HUMAN 100 UNIT/ML 3 ML VIAL SQ PRN (23:30)
[2016-10-03] MEDS ORDERED: *INSULIN REGULAR(HUMULIN R)HUM 100 UNIT/ML VIAL SQ PRN (23:30)
[2016-10-03] MEDS ORDERED: DEXTROSE 50%-WATER 50 ML DISP.SYRIN IV PRN (23:30)
[2016-10-04] MEDS ORDERED: NOREPINEPHRINE 8 MG in IV D5W 500 ML IV PRN (07:00)
[2016-10-04] MEDS ORDERED: PANTOPRAZOLE 40 MG TABLET.DR PO SCH (07:30)
[2016-10-04] MEDS ORDERED: BLOOD SUGAR DIAGNOSTIC 1 EACH STRIP VI SCH (07:30)
[2016-10-04] MEDS ORDERED: SEVELAMER CARBONATE 800 MG TABLET PO SCH (08:00)
[2016-10-04] MEDS ORDERED: CALCIUM ACETATE 667 MG TABLET PO SCH (08:00)
[2016-10-04] MEDS ORDERED: VANCOMYCIN 500 MG in IV D5W 100 ML IV PRN (08:30)
[2016-10-04] MEDS ORDERED: Medication Not On Formulary EA (Folic Acid/Vitamin B Comp W-C (Rena-Vite Tablet) 0.8 MG) PO SCH (09:00)
[2016-10-04] MEDS ORDERED: METOLAZONE 5 MG TABLET PO SCH (09:00)
[2016-10-04] MEDS ORDERED: SITAGLIPTIN PHOSPHATE 50 MG TABLET PO SCH (09:00)
[2016-10-04] MEDS ORDERED: Medication Not On Formulary EA (Dextromethorphan Hbr/Quinidine (Nuedexta 20-10 Mg Capsul PO SCH (09:00)
[2016-10-04] MEDS ORDERED: SUCRALFATE 1 G TABLET PO SCH (09:00)
[2016-10-04] MEDS ORDERED: AMLODIPINE BESYLATE 5 MG TABLET PO SCH (09:00)
[2016-10-04] MEDS ORDERED: Medication Not On Formulary EA (Memantine HCl (Namenda Xr) 14 MG) PO SCH (09:00)
[2016-10-04] MEDS ORDERED: ASPIRIN EC 81 MG TABLET.DR PO SCH (09:00)
[2016-10-04] MEDS ORDERED: DIVALPROEX SODIUM 250 MG TABLET.DR PO SCH (09:00)
[2016-10-04] MEDS ORDERED: METOLAZONE 2.5 MG TABLET PO SCH (09:00)
[2016-10-04] MEDS ORDERED: MEMANTINE HCL 5 MG TABLET PO SCH (09:00)
[2016-10-04] MEDS ORDERED: FUROSEMIDE 80 MG TABLET PO SCH (09:00)
[2016-10-04] MEDS ORDERED: Medication Not On Formulary EA (Olmesartan/Hydrochlorothiazide (Benicar Hct 40-25 Mg Tab PO SCH (09:00)
[2016-10-04] MEDS ORDERED: ALFUZOSIN HCL 10 MG PO SCH (09:00)
[2016-10-04] MEDS ORDERED: CEFEPIME 1 GM in IV D5W 50 ML IV SCH (21:00)
[2016-10-04] MEDS ORDERED: ATORVASTATIN 40 MG TABLET PO SCH (22:00)
[2016-10-04] MEDS ORDERED: INSULIN DETEMIR 100 UNIT/ML CARTRIDGE SQ SCH (22:00)
== END 2016-10-04 11:05 | disposition home or self-care (01) | DRG 314 ==
DX: I95.9 Hypotension, unspecified (principal); N18.6 End stage renal disease; I12.0 Hypertensive chronic kidney disease with stage 5 chronic kidney disease or end stage renal disease; E87.2 Acidosis; D72.829 Elevated white blood cell count, unspecified; E86.0 Dehydration; E78.5 Hyperlipidemia, unspecified; Z99.2 Dependence on renal dialysis; E11.22 Type 2 diabetes mellitus with diabetic chronic kidney disease; D63.8 Anemia in other chronic diseases classified elsewhere; R55 Syncope and collapse; S91.301A Unspecified open wound, right foot, initial encounter; X58.XXXA Exposure to other specified factors, initial encounter; Y93.9 Activity, unspecified; Y92.009 Unspecified place in unspecified non-institutional (private) residence as the place of occurrence of the external cause; Y99.9 Unspecified external cause status

== ENCOUNTER 2016-10-18 11:10 | Inpatient (IN) | payer MEDICARE, MEDICAID ==
[~2016-10-18] VITALS: Ht 167.6 cm; Wt 93.0 kg
[2016-10-18 12:31] LABS: BASOPHILS # (AUTO) 0.1 /CMM (0.0-0.2); BASOPHILS % (AUTO) 0.6 % (0.0-2.0); DIFF TOTAL % 100 %; EOSINOPHILS # (AUTO) 0.4 /CMM (0.0-0.7); EOSINOPHILS % (AUTO) 3.4 % (0.0-6.0); HEMATOCRIT 28 % (39-51); HEMOGLOBIN 9.3 g/dL (13.5-17.5); LYMPHOCYTES # (AUTO) 2.1 /CMM (0.8-4.8); LYMPHOCYTES % (AUTO) 16.9 % (20.0-44.0); MEAN CORPUSCULAR HEMOGLOBIN 29 PG (26.0-33.0); MEAN CORPUSCULAR HGB CONC 33 g/dl (31.0-36.0); MEAN CORPUSCULAR VOLUME 89 fL (80-96); MONOCYTES # (AUTO) 1.6 /CMM (0.1-1.30); MONOCYTES % (AUTO) 12.8 % (2.0-12.0); NEUTROPHILS % (AUTO) 66.3 % (43.0-81.0); PLATELET COUNT (AUTO) 294 /CMM (150-450); RED BLOOD CELL COUNT(AUTO) 3.18 MIL/uL (4.5-6.0); WHITE BLOOD COUNT (AUTO) 12.2 K/uL (4.3-11.0)
[2016-10-18 12:42] LABS: CALCIUM, SERUM 8.5 mg/dL (8.5-10.1); CREATININE 6.4 mg/dL (0.6-1.3); POTASSIUM 5.5 mmol/L (3.5-5.1)
[2016-10-18 16:00] VITALS: BP 135/105
[2016-10-18 16:05] VITALS: BP 135/105
[2016-10-18] MEDS ORDERED: SODIUM POLYSTYRENE SULFONATE 15 G/60 ML BOTTLE PO ONE (16:30)
[2016-10-18 17:29] LABS: INR 0.99 (0.87-1.13); PROTHROMBIN TIME 10.7 SECS (9.5-12.7)
[2016-10-18] MEDS ORDERED: DEXTROSE 50%-WATER 50 ML DISP.SYRIN IV PRN (17:30)
[2016-10-18] MEDS ORDERED: ZOLPIDEM TARTRATE 10 MG TABLET PO PRN (17:30)
[2016-10-18] MEDS ORDERED: clonazePAM 0.5 MG TABLET PO PRN (17:30)
[2016-10-18] MEDS ORDERED: ONDANSETRON 4 MG TAB.RAPDIS PO PRN (17:30)
[2016-10-18] MEDS ORDERED: MISCELLANEOUS MED 1 EA EA XX ONE ×2 (17:30)
[2016-10-18] MEDS: BLOOD SUGAR DIAGNOSTIC 1 EACH STRIP IN SCH ×2 (18:02→21:26)
[2016-10-18] MEDS: SEVELAMER CARBONATE 0.8 GM POWD.PACK GT SCH (18:17)
[2016-10-18] MEDS: CALCIUM ACETATE 667 MG TABLET PO SCH (18:17)
[2016-10-18] MEDS: INSULIN ASPART NOVOLOG 100 UNIT/ML CARTRIDGE SQ PRN ×2 (18:24→21:39)
[2016-10-18 20:00] VITALS: BP 133/63
[2016-10-18] MEDS: DIVALPROEX SODIUM 250 MG TABLET.DR PO SCH (21:26)
[2016-10-18] MEDS: CARVEDILOL 12.5 MG TABLET PO SCH (21:27)
[2016-10-18] MEDS ORDERED: INSULIN DETEMIR 100 UNIT/ML CARTRIDGE SQ SCH (22:00)
[2016-10-18] MEDS ORDERED: ATORVASTATIN 40 MG TABLET PO SCH (22:00)
[2016-10-19] MEDS: BLOOD SUGAR DIAGNOSTIC 1 EACH STRIP IN SCH ×2 (05:34→12:27)
[2016-10-19] MEDS ORDERED: PANTOPRAZOLE 40 MG TABLET.DR PO SCH (07:30)
[2016-10-19 07:46] LABS: BASOPHILS % (AUTO) 0.4 % (0.0-2.0); DIFF TOTAL % 100 %; EOSINOPHILS # (AUTO) 0.3 /CMM (0.0-0.7); EOSINOPHILS % (AUTO) 2.7 % (0.0-6.0); HEMATOCRIT 27 % (39-51); HEMOGLOBIN 8.8 g/dL (13.5-17.5); LYMPHOCYTES # (AUTO) 1.8 /CMM (0.8-4.8); LYMPHOCYTES % (AUTO) 17.2 % (20.0-44.0); MEAN CORPUSCULAR HEMOGLOBIN 29 PG (26.0-33.0); MEAN CORPUSCULAR HGB CONC 33 g/dl (31.0-36.0); MEAN CORPUSCULAR VOLUME 89 fL (80-96); MONOCYTES # (AUTO) 1.1 /CMM (0.1-1.30); MONOCYTES % (AUTO) 10.6 % (2.0-12.0); NEUTROPHILS # (AUTO) 7.3 /CMM (1.8-8.9); NEUTROPHILS % (AUTO) 69.1 % (43.0-81.0); PLATELET COUNT (AUTO) 319 /CMM (150-450); RED BLOOD CELL COUNT(AUTO) 3.02 MIL/uL (4.5-6.0); WHITE BLOOD COUNT (AUTO) 10.6 K/uL (4.3-11.0)
[2016-10-19 07:56] LABS: CALCIUM, SERUM 8.6 mg/dL (8.5-10.1); CREATININE 6.8 mg/dL (0.6-1.3); PHOSPHORUS 4.1 mg/dL (2.5-4.9); POTASSIUM 5.7 mmol/L (3.5-5.1)
[2016-10-19 08:00] VITALS: BP 151/104
[2016-10-19] MEDS: SEVELAMER CARBONATE 0.8 GM POWD.PACK GT SCH ×2 (08:00→13:12)
[2016-10-19] MEDS: CALCIUM ACETATE 667 MG TABLET PO SCH ×2 (08:00→13:12)
[2016-10-19] MEDS: SUCRALFATE 1 G TABLET PO SCH ×2 (09:00→13:12)
[2016-10-19] MEDS: CARVEDILOL 12.5 MG TABLET PO SCH (09:00)
[2016-10-19] MEDS ORDERED: INSULN 70/30 ASP+PRT/ASP MIX 100 UNIT/ML CARTRIDGE SQ SCH (09:00)
[2016-10-19] MEDS ORDERED: VIT B CMPLX 3/FA/VIT C/BIOTIN 1 TAB TABLET PO SCH (09:00)
[2016-10-19] MEDS ORDERED: SITAGLIPTIN PHOSPHATE 50 MG TABLET PO SCH ×2 (09:00)
[2016-10-19] MEDS ORDERED: FUROSEMIDE 80 MG TABLET PO SCH (09:00)
[2016-10-19] MEDS: DIVALPROEX SODIUM 250 MG TABLET.DR PO SCH (09:00)
[2016-10-19] MEDS ORDERED: HCTZ PO SCH (09:00)
[2016-10-19] MEDS ORDERED: BENICAR PO SCH (09:00)
[2016-10-19] MEDS ORDERED: ALFUZOSIN 10 MG PO SCH (09:00)
[2016-10-19] MEDS ORDERED: MEMANTINE HCL 5 MG TABLET PO SCH (09:00)
[2016-10-19] MEDS ORDERED: ASPIRIN EC 81 MG TABLET.DR PO SCH (09:00)
[2016-10-19] MEDS ORDERED: METOLAZONE 2.5 MG TABLET PO SCH (09:00)
[2016-10-19] MEDS ORDERED: VICTOZA 1.8 MG SQ SCH (09:00)
[2016-10-19] MEDS ORDERED: AMLODIPINE BESYLATE 5 MG TABLET PO SCH (09:00)
[2016-10-19] MEDS ORDERED: ONDANSETRON HCL/PF 4 MG/2 ML VIAL IV PRN (09:30)
[2016-10-19] MEDS ORDERED: HEPARIN SODIUM, PORCINE 1,000 UNIT/ML VIAL ONE (10:03)
[2016-10-19] MEDS ORDERED: LIDOCAINE HCL/PF 1% 30 ML SDV ONE (10:03)
[2016-10-19] MEDS ORDERED: IOHEXOL 0 ML IV ONE (10:04)
[2016-10-19] MEDS ORDERED: EPHEDRINE SULFATE IV 50MG VIAL ONE ×2 (11:40→11:55)
[2016-10-19] MEDS ORDERED: IV NS 0.9% 250 ML IV ONE (11:48)
[2016-10-19 12:20] VITALS: BP 97/48
[2016-10-19 13:00] VITALS: BP 123/94
[2016-10-19] MEDS: INSULIN ASPART NOVOLOG 100 UNIT/ML CARTRIDGE SQ PRN (13:18)
[2016-10-19] MEDS ORDERED: EPOETIN ALFA (10,000 UNIT) 10,000 UNIT/ML VIAL IV SCH (15:00)
== END 2016-10-19 15:45 | disposition home or self-care (01) | DRG 314 ==
LOC: ER 11:12 → MED 15:10
PROVIDERS: ADMIT Internal Medicine; ATTEND Internal Medicine
PROC: 05H633Z Insertion of Infusion Device into Left Subclavian Vein, Percutaneous Approach (ICD-10-PCS; 2016-10-18)
PROC: 06H033Z Insertion of Infusion Device into Inferior Vena Cava, Percutaneous Approach (ICD-10-PCS; 2016-10-19)
PROC: B519YZA Fluoroscopy of Inferior Vena Cava using Other Contrast, Guidance (ICD-10-PCS; 2016-10-19)
PROC: 5A1D00Z (ICD-10-PCS; 2016-10-19)
PROC: 06PYX3Z Removal of Infusion Device from Lower Vein, External Approach (ICD-10-PCS; principal; 2016-10-19 10:30)
DX: T82.41XA Breakdown (mechanical) of vascular dialysis catheter, initial encounter (principal); N18.6 End stage renal disease; I13.11 Hypertensive heart and chronic kidney disease without heart failure, with stage 5 chronic kidney disease, or end stage renal disease; Y84.9 Medical procedure, unspecified as the cause of abnormal reaction of the patient, or of later complication, without mention of misadventure at the time of the procedure; Y92.009 Unspecified place in unspecified non-institutional (private) residence as the place of occurrence of the external cause; E11.22 Type 2 diabetes mellitus with diabetic chronic kidney disease; E78.5 Hyperlipidemia, unspecified; E87.5 Hyperkalemia; Z99.2 Dependence on renal dialysis; I25.10 Atherosclerotic heart disease of native coronary artery without angina pectoris
CPT/HCPCS: 36415; 71010-TC; 80048-TC; 82962-TC; 83735-TC; 84100-TC; 85025-TC; 85610-TC; A4606; A6402; J0885; J1644; J1815; J2405; J3490; J7050; Q9967; Z7610

== ENCOUNTER 2016-10-20 09:59 | Outpatient (CLI) | payer MEDICARE, MEDICAID | END 2016-10-20 23:59 | disposition home health service (06) | LOC: WOU 09:59 | PROVIDERS: ATTEND Podiatrist Foot & Ankle Surgery | DX: E11.621 Type 2 diabetes mellitus with foot ulcer (principal); L97.512 Non-pressure chronic ulcer of other part of right foot with fat layer exposed; Z89.411 Acquired absence of right great toe; E11.42 Type 2 diabetes mellitus with diabetic polyneuropathy; I12.0 Hypertensive chronic kidney disease with stage 5 chronic kidney disease or end stage renal disease; N18.6 End stage renal disease; Z99.2 Dependence on renal dialysis; E11.21 Type 2 diabetes mellitus with diabetic nephropathy; E11.51 Type 2 diabetes mellitus with diabetic peripheral angiopathy without gangrene; Z79.84 Long term (current) use of oral hypoglycemic drugs; Z79.899 Other long term (current) drug therapy | CPT/HCPCS: 97597; A6402; 73020 ==

== ENCOUNTER 2016-11-10 10:03 | Outpatient (CLI) | payer MEDICARE, MEDICAID | END 2016-11-10 23:59 | disposition home health service (06) | LOC: WOU 10:03 | PROVIDERS: ATTEND Podiatrist Foot & Ankle Surgery | DX: E11.621 Type 2 diabetes mellitus with foot ulcer (principal); L97.512 Non-pressure chronic ulcer of other part of right foot with fat layer exposed; E11.42 Type 2 diabetes mellitus with diabetic polyneuropathy; Z89.411 Acquired absence of right great toe; Z87.891 Personal history of nicotine dependence; Z83.3 Family history of diabetes mellitus; E11.22 Type 2 diabetes mellitus with diabetic chronic kidney disease; I12.0 Hypertensive chronic kidney disease with stage 5 chronic kidney disease or end stage renal disease; N18.6 End stage renal disease; Z99.2 Dependence on renal dialysis; E11.51 Type 2 diabetes mellitus with diabetic peripheral angiopathy without gangrene; Z79.84 Long term (current) use of oral hypoglycemic drugs; Z79.899 Other long term (current) drug therapy | CPT/HCPCS: 11042; A6402 ×2 ==

== ENCOUNTER 2016-11-24 09:35 | Outpatient (CLI) | payer MEDICARE, MEDICAID | END 2016-11-24 23:59 | disposition home health service (06) | LOC: WOU 09:35 | PROVIDERS: ATTEND Podiatrist Foot & Ankle Surgery | DX: E11.621 Type 2 diabetes mellitus with foot ulcer (principal); L97.512 Non-pressure chronic ulcer of other part of right foot with fat layer exposed; E11.42 Type 2 diabetes mellitus with diabetic polyneuropathy; Z89.411 Acquired absence of right great toe; E11.22 Type 2 diabetes mellitus with diabetic chronic kidney disease; I12.0 Hypertensive chronic kidney disease with stage 5 chronic kidney disease or end stage renal disease; N18.6 End stage renal disease; Z99.2 Dependence on renal dialysis; Z87.891 Personal history of nicotine dependence; Z79.84 Long term (current) use of oral hypoglycemic drugs; Z83.3 Family history of diabetes mellitus; E11.51 Type 2 diabetes mellitus with diabetic peripheral angiopathy without gangrene; E78.5 Hyperlipidemia, unspecified; Z79.899 Other long term (current) drug therapy | CPT/HCPCS: 11042; A6402 ==

== ENCOUNTER 2016-12-08 09:30 | Outpatient (CLI) | payer MEDICARE, MEDICAID | END 2016-12-08 23:59 | disposition home health service (06) | LOC: WOU 09:30 | PROVIDERS: ATTEND Podiatrist Foot & Ankle Surgery | DX: E11.621 Type 2 diabetes mellitus with foot ulcer (principal); L97.512 Non-pressure chronic ulcer of other part of right foot with fat layer exposed; Z89.411 Acquired absence of right great toe; E11.42 Type 2 diabetes mellitus with diabetic polyneuropathy; Z83.3 Family history of diabetes mellitus; E11.22 Type 2 diabetes mellitus with diabetic chronic kidney disease; I12.0 Hypertensive chronic kidney disease with stage 5 chronic kidney disease or end stage renal disease; N18.6 End stage renal disease; Z99.2 Dependence on renal dialysis; Z87.891 Personal history of nicotine dependence; Z79.84 Long term (current) use of oral hypoglycemic drugs; E11.51 Type 2 diabetes mellitus with diabetic peripheral angiopathy without gangrene; E78.5 Hyperlipidemia, unspecified; Z79.899 Other long term (current) drug therapy | CPT/HCPCS: 11042; A6402 ==

== ENCOUNTER 2016-12-15 09:02 | Outpatient (CLI) | payer MEDICARE, MEDICAID | END 2016-12-15 23:59 | disposition home health service (06) | LOC: WOU 09:02 | PROVIDERS: ATTEND Podiatrist Foot & Ankle Surgery | DX: E11.621 Type 2 diabetes mellitus with foot ulcer (principal); L97.512 Non-pressure chronic ulcer of other part of right foot with fat layer exposed; Z89.411 Acquired absence of right great toe; E11.42 Type 2 diabetes mellitus with diabetic polyneuropathy; S90.811A Abrasion, right foot, initial encounter; X58.XXXA Exposure to other specified factors, initial encounter; Y92.89 Other specified places as the place of occurrence of the external cause; E11.22 Type 2 diabetes mellitus with diabetic chronic kidney disease; I12.0 Hypertensive chronic kidney disease with stage 5 chronic kidney disease or end stage renal disease; N18.6 End stage renal disease; Z99.2 Dependence on renal dialysis; Z87.891 Personal history of nicotine dependence; E11.51 Type 2 diabetes mellitus with diabetic peripheral angiopathy without gangrene; E78.5 Hyperlipidemia, unspecified; Z79.84 Long term (current) use of oral hypoglycemic drugs; Z79.899 Other long term (current) drug therapy | CPT/HCPCS: 11042; A6402 ==

== ENCOUNTER 2016-12-19 11:54 | Inpatient (IN) | payer MEDICARE, MEDICAID ==
[~2016-12-19] VITALS: Ht 167.6 cm; Wt 99.8 kg
--- NOTE | 2016-12-19 11:55 | NUR ---
PT BIB BLOODY STOOLS - NOTED SINCE YESTERDAY; FRESH BLOOD C/O WEAKNESS. PLACED ON MONITOR. VSS. AWAITING MD ORDER
--- NOTE | 2016-12-19 12:20 | NUR ---
CALLED [phone] LARRY PAGED
[2016-12-19] MEDS ORDERED: PANTOPRAZOLE 40 MG VIAL ONE (12:30)
[2016-12-19] MEDS ORDERED: PANTOPRAZOLE 40 MG VIAL IV ONE (12:30)
--- NOTE | 2016-12-19 12:30 | NUR ---
BRANDY #20 IV ACCESS. BLOOD SAMPLE COLLECTED SENT TO LAB
[2016-12-19 12:38] LABS: BASOPHILS # (AUTO) 0.6 /CMM (0.0-0.2); BASOPHILS % (AUTO) 3.8 % (0.0-2.0); EOSINOPHILS # (AUTO) 0.1 /CMM (0.0-0.7); EOSINOPHILS % (AUTO) 0.6 % (0.0-6.0); HEMATOCRIT 32 % (39-51); HEMOGLOBIN 10.8 g/dL (13.5-17.5); LYMPHOCYTES # (AUTO) 2.6 /CMM (0.8-4.8); LYMPHOCYTES % (AUTO) 15.6 % (20.0-44.0); MEAN CORPUSCULAR HEMOGLOBIN 29 PG (26.0-33.0); MEAN CORPUSCULAR HGB CONC 33 g/dl (31.0-36.0); MEAN CORPUSCULAR VOLUME 87 fL (80-96); MONOCYTES # (AUTO) 1.3 /CMM (0.1-1.30); MONOCYTES % (AUTO) 7.9 % (2.0-12.0); NEUTROPHILS % (AUTO) 72.1 % (43.0-81.0); PLATELET COUNT (AUTO) 215 /CMM (150-450); RDW COEFFICIENT OF VARIATION 13.2 (11.5-15.0); RED BLOOD CELL COUNT(AUTO) 3.73 MIL/uL (4.5-6.0); WHITE BLOOD COUNT (AUTO) 16.6 K/uL (4.3-11.0)
[2016-12-19 12:49] LABS: CALCIUM, SERUM 8.9 mg/dL (8.5-10.1); CREATININE 7.1 mg/dL (0.6-1.3); POTASSIUM 5.5 mmol/L (3.5-5.1)
[2016-12-19 12:54] LABS: INR 1.05 (0.87-1.13); PROTHROMBIN TIME 10.9 SECS (9.5-12.7)
[2016-12-19 12:55] LABS: ALBUMIN 3.1 g/dL (3.4-5.0); BILIRUBIN,TOTAL 0.2 mg/dL (0.2-1.0); TOTAL PROTEIN, SERUM 6.7 g/dL (6.4-8.2)
[2016-12-19 12:56] LABS: LACTIC ACID 0.9 mmol/L (0.4-2.0)
[2016-12-19 12:57] LABS: TROPONIN I 0.017 ng/mL (0.00-0.056)
--- NOTE | 2016-12-19 13:16 | NUR ---
GAVE REPORT TO [facility] SOCIAL WORK PROFESSOR ROOM 321-2 MRSA NARES ISOLATION. GI BLEED. DR DESEAN KING MD. RU VIA ACLS PROTOCOL .
[2016-12-19 13:30] VITALS: BP 150/67
--- NOTE | 2016-12-19 13:30 | NUR ---
TELE/PAPER BALING MACHINE OPERATOR NOTES ADMITTED THIS 74 Y/O MALE FROM ER, WITH ADMISSION DX:HEMATOCHEZIA, HX:DM (TYPE 2), DEMENTIA, HEMODIALYSIS EVERY T-TH-S, POSITIVE MRSA NARES, ON CONTACT ISOLATION. UNDER CARE OF DR. ANTON, ORDERS VERIFIED, CONTINUED. PATIENT IS ALERT, ORIENTED X2, TO NAME AND PLACE, ERITREAN SPEAKING. NO SOB, DENIES CHEST PAIN, ON RA , SATURATION 94%.TELE MONITOR ATTACHED WITH SINUS RHYTHM HR 68. FULL BODY ASSESSMENT DONE. IV LINE LEFT HAND INTACT, PATENT. HEMOLYSIS IV SHUNT ON EDGAR INTACT, SKIN BRUISED AROUND IT, NO BLEEDING NOTED. SKIN INTACT. ASSESSED BRUIT AND THRILL. OLD HEMODIALYSIS CATHETER NOTED ON LEFT ANTERIOR UPPER LEG. ORIENTED TO THE ROOM, CALL LIGHT SYSTEM, AND VISITING HOURS. KEPT CLEAN, DRY, COMFORTABLE. NEEDS MET IN TIMELY MANNER, DENIES PAIN OR DISCOMFORT. BED IN LOW POSITION, 2 SR UP , WITH CALL LIGHT WITHIN EASY REACH ALL THE TIME, WILL CONTINUE TO MONITOR ACCORDINGLY
[2016-12-19] MEDS ORDERED: ACETAMINOPHEN 325 MG TABLET PO PRN (14:00)
[2016-12-19] MEDS ORDERED: IV NS 0.9% 1,000 ML BAG IV ONE (14:00)
[2016-12-19] MEDS ORDERED: LORAZEPAM INJ 2 MG/ML VIAL IVP PRN (14:00)
[2016-12-19] MEDS ORDERED: ONDANSETRON HCL/PF 4 MG/2 ML VIAL IVP PRN (14:00)
[2016-12-19] MEDS ORDERED: DEXTROSE 50%-WATER 50 ML DISP.SYRIN IV PRN (14:30)
[2016-12-19] MEDS ORDERED: FEE PK DOSING 1 MIN EA MC ONE (14:39)
[2016-12-19] MEDS ORDERED: ONDANSETRON 4 MG TAB.RAPDIS PO PRN (15:00)
[2016-12-19] MEDS ORDERED: VANCOMYCIN 1 GM in IV D5W 250 ML IV ONE (15:00)
[2016-12-19] MEDS ORDERED: PIPERACILLIN /TAZOBACTAM 2.25 G in IV D5W 50 ML IV SCH ×2 (15:00→18:00)
[2016-12-19] MEDS ORDERED: IV SET PRIMARY PUMP SET 1 EA INFUS.SET MC ONE (15:42)
[2016-12-19 16:03] LABS: ALBUMIN 3.1 g/dL (3.4-5.0); BILIRUBIN,DIRECT 0.1 mg/dL (0.0-0.2); BILIRUBIN,TOTAL 0.2 mg/dL (0.2-1.0); TOTAL PROTEIN, SERUM 6.7 g/dL (6.4-8.2)
[2016-12-19 16:08] LABS: LACTIC ACID 1.2 mmol/L (0.4-2.0)
[2016-12-19 16:38] LABS: APPEARANCE,URINE CLEAR (CLEAR); BILIRUBIN,URINE NEGATIVE (NEGATIVE); BLOOD, URINE TRACE-INTA Ery/uL (NEGATIVE); COLOR,URINE YELLOW (YELLOW); KETONES,URINE NEGATIVE (NEGATIVE); LEUKOCYTE ESTERASE ,URINE NEGATIVE (NEGATIVE); NITRITE, URINE NEGATIVE (NEGATIVE); PH,URINE 6.5 (5.0-8.0); PROTEIN,URINE 1+ mg/dl (NEGATIVE); UGLUCOSE NEGATIVE (NEGATIVE); UROBILINOGEN,URINE 0.2 EU/dL (0.2)
[2016-12-19 16:40] LABS: IRON, SERUM 48 ug/dl (50-175); TOTAL IRON BINDING CAPACITY 219 ug/dl (250-450)
[2016-12-19 16:46] LABS: ADD URINE CULTURE NO; BACTERIA,URINE Rare /HPF (None Seen); RBC,URINE 0-2 /HPF (0-2); SQUAMOUS EPITHELIAL CELL,UR Rare /HPF (None Seen)
--- NOTE | 2016-12-19 17:00 | NUR ---
TELE/RN NOTES DR. PEARSON VISITED, EXAMINED PATIENT , WITH LAB ORDER FOR TOMORROW, RESUME PREVIOUS DIET
[2016-12-19] MEDS: SUCRALFATE 1 G TABLET PO SCH ×2 (17:21→18:27)
[2016-12-19] MEDS: BLOOD SUGAR DIAGNOSTIC 1 EACH STRIP IN SCH ×2 (17:25→21:42)
[2016-12-19] MEDS: INSULIN REGULAR, HUMAN 100 UNIT/ML 3 ML VIAL SQ PRN (17:28)
[2016-12-19] MEDS ORDERED: SECONDARY IV SET 1 EA INFUS.SET MC ONE ×2 (17:59→22:47)
[2016-12-19] MEDS ORDERED: PIPERACILLIN /TAZOBACTAM 3.375 G in IV D5W 50 ML IV SCH (18:00)
[2016-12-19] MEDS: SEVELAMER CARBONATE 800 MG TABLET PO SCH (18:27)
[2016-12-19] MEDS: CALCIUM ACETATE 667 MG TABLET PO SCH (18:27)
--- NOTE | 2016-12-19 19:00 | NUR ---
TELEPHONE BETTING CLERK NOTES: RECEIVED PT LAYING IN BED. PT ON TELE AND IS SR 69. CALL LIGHT WITHIN PT'S REACH. BED KEPT IN LOCKED, LOWEST POSITION, AND SIDE RAILS X 2 UP. PT HAS IV ON L HAND #20G AND IS PATENT AND INTACT. PT HAS R ARM AV SHUNT THAT IS USED FOR HEMODIALYSIS, L FEMORAL HD CATH (OLD). NO SIGNS OR SYMPTOMS OF DISTRESS NOTED AT THIS TIME. WILL CONTINUE TO MONITOR PT.
[2016-12-19 19:16] VITALS: BP 137/65
--- NOTE | 2016-12-19 19:23 | NUR ---
TELE/RN NOTES CLARIFIED IV NS BOLUS ORDER WITH DR. ANTON, D/T PATIENT BEEN ON DIALYSIS. CONFIRMED TO ADMINISTERED ORDERED. ENDORSED TO THE SIGNAL PERSON. CHARGE NURSE MADE AWARE, KEVIN, TO CONTINUE TO ADMINISTER IV BOLUS FLUID FIRST PER PROTOCOL, THEN PROCEED WITH ZOSYN ONCE COMPLETED
--- NOTE | 2016-12-19 19:52 | NUR ---
TELE/RN CLOSING NOTES PATIENT IS STABLE, NO CHANGES IN CONDITION, NEEDS MET IN TIMELY MANNER, WOUND DRESSING DONE, NO S/SX HYPO OR HYPERGLYCEMIA NOTED, KEPT CLEAN DRY WITH CALL LIGHT WITHIN EASY REACH.
[2016-12-19 20:00] VITALS: BP 122/63
[2016-12-19] MEDS ORDERED: clonazePAM 0.5 MG TABLET PO PRN (21:00)
[2016-12-19] MEDS: ATORVASTATIN 40 MG TABLET PO SCH (21:43)
[2016-12-19] MEDS: DIVALPROEX SODIUM 250 MG TABLET.DR PO SCH (21:43)
[2016-12-19] MEDS: CARVEDILOL 12.5 MG TABLET PO SCH (21:44)
--- NOTE | 2016-12-19 21:51 | NUR ---
CUSTOMER ACCOUNTS ADVISOR NOTES: SAW THAT VANCO WAS NEVER HUNG PROPERLY AND PATIENT NEVER RECEIVED. INFORMED CHARGE NURSE. CHARGE NURSE SAID TO PROCEED WITH HANGING VANCO FIRST. HUNG PROPERLY.
[2016-12-19] MEDS: INSULIN DETEMIR 100 UNIT/ML CARTRIDGE SQ SCH (22:05)
[2016-12-19] MEDS: *INSULIN REGULAR(HUMULIN R)HUM 100 UNIT/ML VIAL SQ PRN (22:06)
[2016-12-19] MEDS: CEFTRIAXONE 1 G in IV D5W 50 ML IV SCH (22:51)
--- NOTE | 2016-12-19 22:51 | NUR ---
TABLE ATTENDANT NOTES: SNEHA FINISHED SO TO PROCEED WITH ROCEPHIN.
--- NOTE | 2016-12-19 23:21 | NUR ---
CLAIMS VICE PRESIDENT NOTES: ENDORSED FROM AM NURSE, THOMPSON Lynn, TO PROCEED WITH BOLUS 250 ML/HR PER DR. ANTON. CHARGE NURSE AWARE. WILL CONTINUE TO MONITOR PT.
[2016-12-20] VITALS: BP 129/59
--- NOTE | 2016-12-20 01:31 | NUR ---
ECONOMIC ADVISER NOTES: UNABLE TO COMPLETE SEPSIS REASSESSMENT AT THIS TIME DUE TO FLUIDS STILL INFUSING.
--- NOTE | 2016-12-20 03:48 | NUR ---
TITLE SUPERVISOR NOTES: IV 0.9%NS 1,000ML FLUID COMPLETED. CHARGE NURSE NOTIFIED. VITAL SIGNS: 153/69 HR 71, RR 20, PULSE OX 96%, AND TEMP 98.2 ; PT IS DIALYSIS PT. NO ORDERED FLUIDS ON EMAR. WILL CONTINUE TO MONITOR PT.
[2016-12-20 04:00] VITALS: BP 153/69
[2016-12-20] MEDS: BLOOD SUGAR DIAGNOSTIC 1 EACH STRIP IN SCH ×4 (06:07→23:00)
--- NOTE | 2016-12-20 06:09 | NUR ---
FAMILY MEDICINE CHAIR NOTES: BLOOD SUGAR WAS 127. NO COVERAGE WAS GIVEN. WILL CONTINUE TO MONITOR PT.
--- NOTE | 2016-12-20 07:20 | NUR ---
SMALL PARTS ASSEMBLER CLOSING NOTES PT IN BED GETTING HEMODIALYSIS. PT ON TELE AND IS SR 680. CALL LIGHT WITHIN PT'S REACH. BED KEPT IN LOCKED, LOWEST POSITION, AND SIDE RAILS X 2 UP. PT HAS IV ON L HAND #20G AND IS PATENT AND INTACT. NO FLUIDS ARE INFUSING AT THIS TIME. PT HAS R ARM AV SHUNT THAT IS USED FOR HEMODIALYSIS, L FEMORAL HD CATH (OLD). NO SIGNS OR SYMPTOMS OF DISTRESS NOTED AT THIS TIME. ENDORSED TO AM NURSE FOR CONTINUITY OF CARE.
[2016-12-20 08:00] VITALS: BP 144/70
[2016-12-20 08:26] LABS: BASOPHILS % (AUTO) 0.2 % (0.0-2.0); EOSINOPHILS # (AUTO) 0.2 /CMM (0.0-0.7); EOSINOPHILS % (AUTO) 1.8 % (0.0-6.0); HEMATOCRIT 32 % (39-51); HEMOGLOBIN 10.4 g/dL (13.5-17.5); LYMPHOCYTES # (AUTO) 1.9 /CMM (0.8-4.8); LYMPHOCYTES % (AUTO) 14.1 % (20.0-44.0); MEAN CORPUSCULAR HEMOGLOBIN 28 PG (26.0-33.0); MEAN CORPUSCULAR HGB CONC 33 g/dl (31.0-36.0); MEAN CORPUSCULAR VOLUME 87 fL (80-96); MONOCYTES # (AUTO) 1.1 /CMM (0.1-1.30); MONOCYTES % (AUTO) 8.2 % (2.0-12.0); NEUTROPHILS # (AUTO) 10.3 /CMM (1.8-8.9); NEUTROPHILS % (AUTO) 75.7 % (43.0-81.0); PLATELET COUNT (AUTO) 220 /CMM (150-450); RDW COEFFICIENT OF VARIATION 14.1 (11.5-15.0); RED BLOOD CELL COUNT(AUTO) 3.68 MIL/uL (4.5-6.0); WHITE BLOOD COUNT (AUTO) 13.6 K/uL (4.3-11.0)
[2016-12-20 08:33] LABS: INR 1.03 (0.87-1.13)
[2016-12-20] MEDS: CALCIUM ACETATE 667 MG TABLET PO SCH ×3 (08:33→17:10)
[2016-12-20] MEDS: DIVALPROEX SODIUM 250 MG TABLET.DR PO SCH ×2 (08:33→22:21)
[2016-12-20] MEDS: VIT B CMPLX 3/FA/VIT C/BIOTIN 1 TAB TABLET PO SCH (08:33)
[2016-12-20] MEDS: PANTOPRAZOLE 40 MG VIAL IV SCH (08:33)
[2016-12-20] MEDS: ALFUZOSIN HCL 10 MG PO SCH (08:33)
[2016-12-20] MEDS: SEVELAMER CARBONATE 800 MG TABLET PO SCH ×3 (08:33→17:09)
[2016-12-20] MEDS: Vilazodone Hydrochloride (Viibryd) 40 MG PO SCH (08:33)
[2016-12-20] MEDS: VICTOZA 1.8 MG SQ SCH (08:34)
[2016-12-20] MEDS: CARVEDILOL 12.5 MG TABLET PO SCH ×2 (08:34→21:00)
[2016-12-20] MEDS: AMLODIPINE BESYLATE 5 MG TABLET PO SCH (08:35)
[2016-12-20 08:40] LABS: ALBUMIN 2.9 g/dL (3.4-5.0); BILIRUBIN,TOTAL 0.2 mg/dL (0.2-1.0); CALCIUM, SERUM 8.4 mg/dL (8.5-10.1); CREATININE 7.4 mg/dL (0.6-1.3); POTASSIUM 5.7 mmol/L (3.5-5.1); TOTAL PROTEIN, SERUM 6.4 g/dL (6.4-8.2)
--- NOTE | 2016-12-20 08:42 | NUR ---
went to do AM portable for chest , patient on dialysis.
[2016-12-20] MEDS ORDERED: ASPIRIN EC 81 MG TABLET.DR PO SCH (09:00)
[2016-12-20] MEDS ORDERED: SITAGLIPTIN PHOSPHATE 50 MG TABLET PO SCH (09:00)
--- NOTE | 2016-12-20 09:15 | NUR ---
RN NOTE ERYN NOT AVAILABLE AT TIME OF ADMIN. PHARMACY AWARE. STATE THEY WILL SEND THE MEDICATION.
[2016-12-20] MEDS: BENICAR HCTZ PO SCH (09:16)
--- NOTE | 2016-12-20 09:16 | NUR ---
ASSURANCE MANAGER INITIAL NOTES REPORT RECEIVED AT THE BEDSIDE. PATIENT IS RESTING COMFORTABLY IN BED. NO SOB OR DISTRESS NOTED AT THIS TIME. PATIENT DENIES PAIN. HEART RATE IS SR IN THE 80S. BED IN A LOW POSITION, CALL LIGHT WITHIN PATIENT REACH. WILL CONTINUE TO MONITOR. WILL HOLD ALL BE MEDS PATIENT IS TO HAVE DIALYSIS TODAY.
--- NOTE | 2016-12-20 09:19 | NUR ---
RN NOTE PATIENT STATES HE WANTS TO WAIT UNTIL AFTER DIALYSIS FOR JANUVIA.
[2016-12-20] MEDS ORDERED: SECONDARY IV SET 1 EA INFUS.SET MC ONE (10:54)
[2016-12-20] MEDS: LINAGLIPTIN 5 MG TABLET PO SCH (11:01)
[2016-12-20] MEDS ORDERED: EPOETIN ALFA (10,000 UNIT) 10,000 UNIT/ML VIAL SQ ONE (11:30)
[2016-12-20] MEDS ORDERED: EPOETIN ALFA (10,000 UNIT) 10,000 UNIT/ML VIAL SQ SCH (11:30)
[2016-12-20] MEDS: SUCRALFATE 1 G TABLET PO SCH ×2 (12:06→17:10)
[2016-12-20] MEDS: CADEXOMER IODINE 40 GM TUBE TP SCH (12:06)
[2016-12-20] MEDS: INSULIN REGULAR, HUMAN 100 UNIT/ML 3 ML VIAL SQ PRN ×3 (12:07→23:16)
[2016-12-20] MEDS ORDERED: IV NS 0.9% 250 ML IV ONE (13:09)
[2016-12-20] MEDS ORDERED: VANCOMYCIN 500 MG in IV D5W 100 ML IV ONE (13:30)
[2016-12-20] MEDS ORDERED: VANCOMYCIN 500 MG in IV D5W 100 ML IV PRN (14:30)
[2016-12-20 16:00] VITALS: BP 120/49
[2016-12-20] MEDS: LACTOBACILLUS RHAMNOSUS GG 1 EACH CAP.SPRINK PO SCH (17:09)
--- NOTE | 2016-12-20 18:22 | NUR ---
RN NOTE PATIENT MRSA SWAB IS NEGATIVE. PER FORESTRY HUNTER, KENYON DUMONT ISOLATION.
--- NOTE | 2016-12-20 18:43 | NUR ---
MS RN CLOSING NOTES NO SIGNIFICANT CHANGES IN PATIENT CONDITION THROUGHOUT THE SHIFT. NO SOB OR DISTRESS NOTED AT THIS TIME. PATIENT DENIES PAIN. BED IN A LOW POSITION, CALL LIGHT WITHIN PATIENT REACH. WILL ENDORSE FOR WENDI.
--- NOTE | 2016-12-20 19:35 | NUR ---
MS/INTERMEDIATE TEACHER; RECEIVED PT IN BED AWAKE, ALERT , ORIENTED AND VERBALLY RESPONSIVE. DENIES PAIN. BREATHING NON LABORED. LT FEMORAL HD CATH INTACT WITH DRESSING. HL ON LT HAND INTACT. AV SHUNT ON EDGAR INTACT WITH DRESSING. BED ON LOWER POSITION AND LOCKED FOR SAFETY. UPPER PART SIDE RAILS ARE UP FOR SAFETY. CONTINUE TO MONITOR. CALL LIGHT WITHIN REACH.
[2016-12-20 20:00] VITALS: BP 110/58
[2016-12-20] MEDS: CEFTRIAXONE 1 G in IV D5W 50 ML IV SCH (21:25)
[2016-12-20] MEDS: ATORVASTATIN 40 MG TABLET PO SCH (22:22)
--- NOTE | 2016-12-20 23:00 | NUR ---
MS/MACHINE OPERATOR HOP WORKER; BS 135 COVERED WITH REGULAR INSULIN 2 UNITS.
[2016-12-20] MEDS: INSULIN DETEMIR 100 UNIT/ML CARTRIDGE SQ SCH (23:21)
[2016-12-21] MEDS: ZOLPIDEM TARTRATE 10 MG TABLET PO PRN ×2 (00:10→21:04)
--- NOTE | 2016-12-21 00:10 | NUR ---
MS/SENIOR UI UX DESIGNER; AMBIEN 10 MG PO HS PRN GIVEN PER PT REQUEST ORDERED.
--- NOTE | 2016-12-21 06:00 | NUR ---
MS/MORTGAGE LOAN COMPUTATION CLERK; BS 273 COVERED WITH REGULAR INSULIN 12 UNITS SQ.
[2016-12-21] MEDS: BLOOD SUGAR DIAGNOSTIC 1 EACH STRIP IN SCH ×4 (06:08→21:08)
[2016-12-21] MEDS: INSULIN REGULAR, HUMAN 100 UNIT/ML 3 ML VIAL SQ PRN ×3 (06:37→17:03)
--- NOTE | 2016-12-21 07:00 | NUR ---
MS/CLINICAL RESOURCE DIRECTOR; SLEPT FAIRLY. BREATHING NON LABORED. VOIDING. HAD BM X 1 LAST NIGHT MOD AMOUNT BLACKISH COLOR. LT PARSONS HEMATOMA SIZE STILL THE SAME . WILL ENDORSE TO THE DAY SHIFT NURSE.
--- NOTE | 2016-12-21 07:05 | NUR ---
MS RN INITIAL NOTE REPORT RECEIVED AT THE BEDSIDE. PATIENT IS RESTING COMFORTABLY IN BED. NO SOB OR DISTRESS NOTED AT THIS TIME. PATIENT DENIES PAIN. BED IN A LOW POSITION, CALL LIGHT WITHIN PATIENT REACH. WILL CONTINUE TO MONITOR.
[2016-12-21 07:41] LABS: BASOPHILS % (AUTO) 0.2 % (0.0-2.0); EOSINOPHILS # (AUTO) 0.2 /CMM (0.0-0.7); EOSINOPHILS % (AUTO) 1.1 % (0.0-6.0); HEMATOCRIT 34 % (39-51); HEMOGLOBIN 10.9 g/dL (13.5-17.5); LYMPHOCYTES # (AUTO) 1.9 /CMM (0.8-4.8); LYMPHOCYTES % (AUTO) 13.3 % (20.0-44.0); MEAN CORPUSCULAR HEMOGLOBIN 28 PG (26.0-33.0); MEAN CORPUSCULAR HGB CONC 33 g/dl (31.0-36.0); MEAN CORPUSCULAR VOLUME 87 fL (80-96); MONOCYTES # (AUTO) 1.1 /CMM (0.1-1.30); MONOCYTES % (AUTO) 7.3 % (2.0-12.0); NEUTROPHILS # (AUTO) 11.4 /CMM (1.8-8.9); NEUTROPHILS % (AUTO) 78.1 % (43.0-81.0); PLATELET COUNT (AUTO) 216 /CMM (150-450); RDW COEFFICIENT OF VARIATION 13.8 (11.5-15.0); RED BLOOD CELL COUNT(AUTO) 3.86 MIL/uL (4.5-6.0); WHITE BLOOD COUNT (AUTO) 14.6 K/uL (4.3-11.0)
[2016-12-21 08:00] VITALS: BP 128/62
[2016-12-21] MEDS: VICTOZA 1.8 MG SQ SCH (08:33)
[2016-12-21] MEDS: SUCRALFATE 1 G TABLET PO SCH ×3 (08:33→17:03)
[2016-12-21] MEDS: VIT B CMPLX 3/FA/VIT C/BIOTIN 1 TAB TABLET PO SCH (08:33)
[2016-12-21] MEDS: DIVALPROEX SODIUM 250 MG TABLET.DR PO SCH ×2 (08:33→21:07)
[2016-12-21] MEDS: LINAGLIPTIN 5 MG TABLET PO SCH (08:33)
[2016-12-21] MEDS: CALCIUM ACETATE 667 MG TABLET PO SCH ×3 (08:33→17:02)
[2016-12-21] MEDS: LACTOBACILLUS RHAMNOSUS GG 1 EACH CAP.SPRINK PO SCH ×2 (08:33→17:02)
[2016-12-21] MEDS: PANTOPRAZOLE 40 MG VIAL IV SCH (08:33)
[2016-12-21] MEDS: SEVELAMER CARBONATE 800 MG TABLET PO SCH ×3 (08:33→17:02)
[2016-12-21] MEDS: Vilazodone Hydrochloride (Viibryd) 40 MG PO SCH (08:34)
[2016-12-21] MEDS: ALFUZOSIN HCL 10 MG PO SCH (08:34)
--- NOTE | 2016-12-21 08:42 | NUR ---
MS RN NOTES HOLDING BP MEDICATION UNTIL CONFIRMATION IS RECEIVED FROM MD ON DAILY DIALYSIS.
[2016-12-21 08:58] LABS: CALCIUM, SERUM 8.7 mg/dL (8.5-10.1); CREATININE 6.6 mg/dL (0.6-1.3); MAGNESIUM 1.9 mg/dL (1.8-2.4); PHOSPHORUS 3.4 mg/dL (2.5-4.9); POTASSIUM 5.1 mmol/L (3.5-5.1)
[2016-12-21] MEDS: CADEXOMER IODINE 40 GM TUBE TP SCH (10:52)
[2016-12-21] MEDS: CARVEDILOL 12.5 MG TABLET PO SCH ×2 (10:52→21:00)
[2016-12-21] MEDS: BENICAR HCTZ PO SCH (10:52)
[2016-12-21] MEDS: AMLODIPINE BESYLATE 5 MG TABLET PO SCH (10:52)
[2016-12-21 16:00] VITALS: BP 115/74
--- NOTE | 2016-12-21 19:20 | NUR ---
RN NOTE RECEIVED REPORT. PT AAOX4, NO S/S OF ANY DISTRESS AT THIS TIME. DENIES PAIN/DISCOMFORT. BREATHING NON-LABORED AND EVEN. IV INTACT AND PATENT, CALL LIGHT IN REACH. WILL CONT TO MONITOR.
[2016-12-21] MEDS: CEFTRIAXONE 1 G in IV D5W 50 ML IV SCH (19:50)
[2016-12-21 20:00] VITALS: BP 128/52
[2016-12-21] MEDS: ATORVASTATIN 40 MG TABLET PO SCH (21:04)
[2016-12-21] MEDS: INSULIN DETEMIR 100 UNIT/ML CARTRIDGE SQ SCH (21:11)
[2016-12-21] MEDS: *INSULIN REGULAR(HUMULIN R)HUM 100 UNIT/ML VIAL SQ PRN (21:12)
[2016-12-22] MEDS: INSULIN REGULAR, HUMAN 100 UNIT/ML 3 ML VIAL SQ PRN (06:25)
[2016-12-22] MEDS: BLOOD SUGAR DIAGNOSTIC 1 EACH STRIP IN SCH (06:32)
[2016-12-22 06:34] LABS: BASOPHILS # (AUTO) 0.1 /CMM (0.0-0.2); BASOPHILS % (AUTO) 0.3 % (0.0-2.0); EOSINOPHILS # (AUTO) 0.2 /CMM (0.0-0.7); EOSINOPHILS % (AUTO) 1.1 % (0.0-6.0); HEMATOCRIT 33 % (39-51); HEMOGLOBIN 10.7 g/dL (13.5-17.5); LYMPHOCYTES # (AUTO) 2.3 /CMM (0.8-4.8); LYMPHOCYTES % (AUTO) 13.6 % (20.0-44.0); MEAN CORPUSCULAR HEMOGLOBIN 28 PG (26.0-33.0); MEAN CORPUSCULAR HGB CONC 32 g/dl (31.0-36.0); MEAN CORPUSCULAR VOLUME 86 fL (80-96); MONOCYTES # (AUTO) 1.2 /CMM (0.1-1.30); MONOCYTES % (AUTO) 6.9 % (2.0-12.0); NEUTROPHILS # (AUTO) 13.1 /CMM (1.8-8.9); NEUTROPHILS % (AUTO) 78.1 % (43.0-81.0); PLATELET COUNT (AUTO) 256 /CMM (150-450); RED BLOOD CELL COUNT(AUTO) 3.86 MIL/uL (4.5-6.0); WHITE BLOOD COUNT (AUTO) 16.8 K/uL (4.3-11.0)
--- NOTE | 2016-12-22 06:49 | NUR ---
RN NOTE NO SIGNIFICANT CHANGES OVERNIGHT. PT SLEPT WELL. NO C/O PAIN OR DISCOMFORT AT THIS TIME. NO S/S OF ANY DISTRESS. NO SIGNS OF BLEEDING AFTER BM, PER PATIENT. IV INTACT AND PATENT, NO FLUIDS. FOR HD IN AM. CALL LIGHT IN REACH, WILL F/U WITH DAY SHIFT FOR WENDI.
[2016-12-22 07:01] LABS: CALCIUM, SERUM 8.8 mg/dL (8.5-10.1); MAGNESIUM 2.2 mg/dL (1.8-2.4); PHOSPHORUS 3.7 mg/dL (2.5-4.9); POTASSIUM 5.2 mmol/L (3.5-5.1)
[2016-12-22 07:04] LABS: CREATININE 7.9 mg/dL (0.6-1.3)
[2016-12-22 08:00] VITALS: BP 112/84
--- NOTE | 2016-12-22 08:00 | NUR ---
MS RN NOTES PT IS A/OX4. PT IS IN BED RESTING WATCHING TV. IV IS INTACT AND PATENT. NO SOB OR ANY S/S OF DISTRESS NOTED. PT DENIES ANY PAIN AT THIS TIME. BED IS IN LOW LOCKED POSITION. CALL LIGHT IS WITHIN REACH. WILL CONTINUE TO MONITOR THROUGHOUT SHIFT.
--- NOTE | 2016-12-22 08:30 | NUR ---
PT WAS ASSESSED BY KAREN HENRIQUEZ. COUNTERINTELLIGENCE ANALYST STATED THAT HIS CREATININE WAS ELEVATED AND THAT HE NEEDS TO RECEIVE DIALYSIS TODAY. COUNTERINTELLIGENCE ANALYST ALSO DISCUSSED PT'S ELEVATED WBC COUNT AND TO CONTINUE HOSPITALIZATION FOR MONITORING AND TREATMENT. PT REFUSING DIALYSIS OF THIS MOMENT AND STATES HE WILL RECEIVE IT TOMORROW.
[2016-12-22] MEDS: SEVELAMER CARBONATE 800 MG TABLET PO SCH (08:40)
[2016-12-22] MEDS: CADEXOMER IODINE 40 GM TUBE TP SCH (08:40)
[2016-12-22] MEDS: LACTOBACILLUS RHAMNOSUS GG 1 EACH CAP.SPRINK PO SCH (08:40)
[2016-12-22] MEDS: VIT B CMPLX 3/FA/VIT C/BIOTIN 1 TAB TABLET PO SCH (08:40)
[2016-12-22] MEDS: CALCIUM ACETATE 667 MG TABLET PO SCH (08:41)
[2016-12-22] MEDS: SUCRALFATE 1 G TABLET PO SCH (08:41)
[2016-12-22] MEDS: DIVALPROEX SODIUM 250 MG TABLET.DR PO SCH (08:41)
[2016-12-22 08:42] VITALS: BP 112/84
[2016-12-22] MEDS: LINAGLIPTIN 5 MG TABLET PO SCH (08:42)
[2016-12-22] MEDS: PANTOPRAZOLE 40 MG VIAL IV SCH (08:42)
[2016-12-22] MEDS: AMLODIPINE BESYLATE 5 MG TABLET PO SCH (08:42)
[2016-12-22] MEDS: CARVEDILOL 12.5 MG TABLET PO SCH (08:42)
[2016-12-22] MEDS: ALFUZOSIN HCL 10 MG PO SCH (08:43)
[2016-12-22] MEDS: BENICAR HCTZ PO SCH (08:43)
[2016-12-22] MEDS: Vilazodone Hydrochloride (Viibryd) 40 MG PO SCH (08:43)
[2016-12-22] MEDS: VICTOZA 1.8 MG SQ SCH (08:44)
[2016-12-22] MEDS ORDERED: SET PCA INFUSE SET 1 EA INFUS.SET MC ONE (10:07)
--- NOTE | 2016-12-22 10:40 | NUR ---
PLAN OF CARE WAS DISCUSSED WITH PT AND PATIENT'S . PT'S INSISTED THAT THEY WOULD LIKE TO LEAVE AMA. PT AND HIS WERE INFORMED AND EDUCATED OF THE RISKS OF LEAVING AMA. PT AND WERE INFORMED OF THE NEED TO MONITOR AND CONTINUE CARE PER MARRIAGE AND FAMILY TEACHER. PT'S STATED THAT SHE IS AWARE OF THE PATIENT'S ELEVATED WBC COUNT AND ELEVATED CREATININE. SHE STATED THAT THE PT WILL RECEIVE DIALYSIS TOMORROW OUTPATIENT. PT AND WERE INFORMED TO FOLLOW UP CARE WITH PCP. AMA FORM WAS SIGNED. BELONGINGS WERE ACCOUNTED FOR. HOME MEDICATIONS WERE RETURNED TO THE PATIENT. PRESCRIPTIONS AND EDUCATION REGARDING PRESCRIPTIONS WERE PROVIDED TO THE PATIENT AND HIS .
== END 2016-12-22 10:45 | disposition left against medical advice (07) | DRG 393 ==
LOC: ER 11:55 → TELE 13:07 → MED 12-20 09:24
PROVIDERS: ADMIT Internal Medicine; ATTEND Internal Medicine
PROC: 5A1D00Z (ICD-10-PCS; principal; 2016-12-20)
DX: K64.9 Unspecified hemorrhoids (principal); N18.6 End stage renal disease; I12.0 Hypertensive chronic kidney disease with stage 5 chronic kidney disease or end stage renal disease; L03.115 Cellulitis of right lower limb; E11.51 Type 2 diabetes mellitus with diabetic peripheral angiopathy without gangrene; E11.22 Type 2 diabetes mellitus with diabetic chronic kidney disease; E11.621 Type 2 diabetes mellitus with foot ulcer; I25.10 Atherosclerotic heart disease of native coronary artery without angina pectoris; L97.519 Non-pressure chronic ulcer of other part of right foot with unspecified severity; Z99.2 Dependence on renal dialysis; G89.29 Other chronic pain; M54.5 Low back pain; E78.5 Hyperlipidemia, unspecified; D64.9 Anemia, unspecified; E87.5 Hyperkalemia; E66.9 Obesity, unspecified; F03.90 Unspecified dementia, unspecified severity, without behavioral disturbance, psychotic disturbance, mood disturbance, and anxiety; I25.2 Old myocardial infarction; I51.7 Cardiomegaly; F41.9 Anxiety disorder, unspecified; K21.9 Gastro-esophageal reflux disease without esophagitis; Z79.4 Long term (current) use of insulin
CPT/HCPCS: 36415; 71010-TC; 80048-TC; 80053-TC; 80076-TC; 80202-TC; 81000-TC; 82378; 82962-TC; 83540-TC; 83605-TC; 83690-TC; 83735-TC; 84100-TC; 84484-TC; 85025-TC; 85610-TC; 85730-TC; 86850-TC; 87040-TC; 87081-TC; 87086-TC; 90935-TC; 93970-TC; A4606; A6402; C9113; J0696; J0885; J1815; J2543; J3370; J7030; J7050; J7060; Z7610

== ENCOUNTER 2016-12-29 08:50 | Outpatient (CLI) | payer MEDICARE, MEDICAID | END 2016-12-29 23:59 | disposition home health service (06) | LOC: WOU 08:50 | PROVIDERS: ATTEND Podiatrist Foot & Ankle Surgery | DX: E11.621 Type 2 diabetes mellitus with foot ulcer (principal); L97.512 Non-pressure chronic ulcer of other part of right foot with fat layer exposed; E11.42 Type 2 diabetes mellitus with diabetic polyneuropathy; Z89.411 Acquired absence of right great toe; S90.02XA Contusion of left ankle, initial encounter; X58.XXXA Exposure to other specified factors, initial encounter; Y92.89 Other specified places as the place of occurrence of the external cause; E11.51 Type 2 diabetes mellitus with diabetic peripheral angiopathy without gangrene; E11.22 Type 2 diabetes mellitus with diabetic chronic kidney disease; I12.0 Hypertensive chronic kidney disease with stage 5 chronic kidney disease or end stage renal disease; N18.6 End stage renal disease; Z99.2 Dependence on renal dialysis; E78.5 Hyperlipidemia, unspecified; Z79.84 Long term (current) use of oral hypoglycemic drugs; Z79.899 Other long term (current) drug therapy | CPT/HCPCS: 11042; A6402 ==

== ENCOUNTER 2017-01-12 10:18 | Outpatient (CLI) | payer MEDICARE, MEDICAID | END 2017-01-12 23:59 | disposition home health service (06) | LOC: WOU 10:18 | PROVIDERS: ATTEND Podiatrist Foot & Ankle Surgery | DX: E11.621 Type 2 diabetes mellitus with foot ulcer (principal); L97.512 Non-pressure chronic ulcer of other part of right foot with fat layer exposed; Z89.411 Acquired absence of right great toe; S90.02XD Contusion of left ankle, subsequent encounter; X58.XXXD Exposure to other specified factors, subsequent encounter; E11.22 Type 2 diabetes mellitus with diabetic chronic kidney disease; I12.0 Hypertensive chronic kidney disease with stage 5 chronic kidney disease or end stage renal disease; N18.6 End stage renal disease; Z99.2 Dependence on renal dialysis; Z87.891 Personal history of nicotine dependence; Z79.84 Long term (current) use of oral hypoglycemic drugs; Z79.899 Other long term (current) drug therapy | CPT/HCPCS: 11042; A6402 ==

== ENCOUNTER 2017-01-16 08:33 | Outpatient (CLI) | payer MEDICARE, MEDICAID | END 2017-01-16 23:59 | disposition home or self-care (01) | LOC: MRI 08:33 | PROVIDERS: ATTEND Podiatrist Foot & Ankle Surgery | DX: M62.572 Muscle wasting and atrophy, not elsewhere classified, left ankle and foot (principal); M25.872 Other specified joint disorders, left ankle and foot; M25.472 Effusion, left ankle; M77.32 Calcaneal spur, left foot | CPT/HCPCS: 73721-TC ==

== ENCOUNTER 2017-01-19 09:52 | Outpatient (CLI) | payer MEDICARE, MEDICAID | END 2017-01-19 23:59 | disposition home health service (06) | LOC: WOU 09:52 | PROVIDERS: ATTEND Podiatrist Foot & Ankle Surgery | DX: E11.621 Type 2 diabetes mellitus with foot ulcer (principal); L97.512 Non-pressure chronic ulcer of other part of right foot with fat layer exposed; T81.31XA Disruption of external operation (surgical) wound, not elsewhere classified, initial encounter; E11.42 Type 2 diabetes mellitus with diabetic polyneuropathy; Z89.411 Acquired absence of right great toe; S90.02XD Contusion of left ankle, subsequent encounter; E11.22 Type 2 diabetes mellitus with diabetic chronic kidney disease; I12.0 Hypertensive chronic kidney disease with stage 5 chronic kidney disease or end stage renal disease; N18.6 End stage renal disease; Z99.2 Dependence on renal dialysis; Z87.891 Personal history of nicotine dependence; Z79.84 Long term (current) use of oral hypoglycemic drugs | CPT/HCPCS: A6402 ==

== ENCOUNTER 2017-02-02 09:10 | Outpatient (CLI) | payer MEDICARE, MEDICAID | END 2017-02-02 23:59 | disposition home health service (06) | LOC: WOU 09:10 | PROVIDERS: ATTEND Podiatrist Foot & Ankle Surgery | DX: E11.621 Type 2 diabetes mellitus with foot ulcer (principal); L97.512 Non-pressure chronic ulcer of other part of right foot with fat layer exposed; E11.42 Type 2 diabetes mellitus with diabetic polyneuropathy; Z89.411 Acquired absence of right great toe; S90.02XD Contusion of left ankle, subsequent encounter; X58.XXXD Exposure to other specified factors, subsequent encounter; E11.22 Type 2 diabetes mellitus with diabetic chronic kidney disease; I12.0 Hypertensive chronic kidney disease with stage 5 chronic kidney disease or end stage renal disease; N18.6 End stage renal disease; Z99.2 Dependence on renal dialysis; Z87.891 Personal history of nicotine dependence; E78.5 Hyperlipidemia, unspecified; E11.51 Type 2 diabetes mellitus with diabetic peripheral angiopathy without gangrene; T81.31XA Disruption of external operation (surgical) wound, not elsewhere classified, initial encounter; Z79.84 Long term (current) use of oral hypoglycemic drugs; Z79.899 Other long term (current) drug therapy | CPT/HCPCS: 11042; A6402 ==

== ENCOUNTER 2017-02-16 09:29 | Outpatient (CLI) | payer MEDICARE, MEDICAID | END 2017-02-16 23:59 | disposition home health service (06) | LOC: WOU 09:29 | PROVIDERS: ATTEND Podiatrist Foot & Ankle Surgery | DX: E11.621 Type 2 diabetes mellitus with foot ulcer (principal); L97.513 Non-pressure chronic ulcer of other part of right foot with necrosis of muscle; T81.31XD Disruption of external operation (surgical) wound, not elsewhere classified, subsequent encounter; E11.42 Type 2 diabetes mellitus with diabetic polyneuropathy; Z89.411 Acquired absence of right great toe; S90.02XD Contusion of left ankle, subsequent encounter; X58.XXXD Exposure to other specified factors, subsequent encounter; E11.22 Type 2 diabetes mellitus with diabetic chronic kidney disease; I12.0 Hypertensive chronic kidney disease with stage 5 chronic kidney disease or end stage renal disease; N18.6 End stage renal disease; Z99.2 Dependence on renal dialysis; Z87.891 Personal history of nicotine dependence; Z79.84 Long term (current) use of oral hypoglycemic drugs; Z83.3 Family history of diabetes mellitus; E78.5 Hyperlipidemia, unspecified; E11.51 Type 2 diabetes mellitus with diabetic peripheral angiopathy without gangrene | CPT/HCPCS: 11042; 73630-TC; A6402 ==

== ENCOUNTER 2017-02-23 09:10 | Outpatient (CLI) | payer MEDICARE, MEDICAID | END 2017-02-23 23:59 | disposition home health service (06) | LOC: WOU 09:10 | PROVIDERS: ATTEND Podiatrist Foot & Ankle Surgery | DX: T81.31XD Disruption of external operation (surgical) wound, not elsewhere classified, subsequent encounter (principal); E11.621 Type 2 diabetes mellitus with foot ulcer; L97.413 Non-pressure chronic ulcer of right heel and midfoot with necrosis of muscle; E11.42 Type 2 diabetes mellitus with diabetic polyneuropathy; Z91.19 Patient's noncompliance with other medical treatment and regimen; S90.02XD Contusion of left ankle, subsequent encounter; X58.XXXD Exposure to other specified factors, subsequent encounter; Z89.411 Acquired absence of right great toe; E11.59 Type 2 diabetes mellitus with other circulatory complications; E11.22 Type 2 diabetes mellitus with diabetic chronic kidney disease; I12.0 Hypertensive chronic kidney disease with stage 5 chronic kidney disease or end stage renal disease; N18.6 End stage renal disease; Z99.2 Dependence on renal dialysis; Z79.84 Long term (current) use of oral hypoglycemic drugs; Z87.891 Personal history of nicotine dependence; E78.5 Hyperlipidemia, unspecified | CPT/HCPCS: 11043; A6402 ==

== ENCOUNTER 2017-03-09 09:10 | Outpatient (CLI) | payer MEDICARE, MEDICAID | END 2017-03-09 23:59 | disposition home health service (06) | LOC: WOU 09:10 | PROVIDERS: ATTEND Podiatrist Foot & Ankle Surgery | DX: E11.621 Type 2 diabetes mellitus with foot ulcer (principal); L97.513 Non-pressure chronic ulcer of other part of right foot with necrosis of muscle; E11.42 Type 2 diabetes mellitus with diabetic polyneuropathy; T81.31XD Disruption of external operation (surgical) wound, not elsewhere classified, subsequent encounter; Z89.411 Acquired absence of right great toe; Z91.19 Patient's noncompliance with other medical treatment and regimen; Z87.891 Personal history of nicotine dependence; E11.22 Type 2 diabetes mellitus with diabetic chronic kidney disease; I12.0 Hypertensive chronic kidney disease with stage 5 chronic kidney disease or end stage renal disease; N18.6 End stage renal disease; Z99.2 Dependence on renal dialysis; Z79.84 Long term (current) use of oral hypoglycemic drugs; E78.5 Hyperlipidemia, unspecified; E11.51 Type 2 diabetes mellitus with diabetic peripheral angiopathy without gangrene | CPT/HCPCS: 11043; A6402 ==

== ENCOUNTER 2017-03-16 09:00 | Outpatient (CLI) | payer MEDICARE, MEDICAID | END 2017-03-16 23:59 | disposition home health service (06) | LOC: WOU 09:00 | PROVIDERS: ATTEND Podiatrist Foot & Ankle Surgery | DX: E11.621 Type 2 diabetes mellitus with foot ulcer (principal); E11.42 Type 2 diabetes mellitus with diabetic polyneuropathy; L97.513 Non-pressure chronic ulcer of other part of right foot with necrosis of muscle; T81.31XA Disruption of external operation (surgical) wound, not elsewhere classified, initial encounter; E11.51 Type 2 diabetes mellitus with diabetic peripheral angiopathy without gangrene; Z87.891 Personal history of nicotine dependence; Z89.411 Acquired absence of right great toe; E11.22 Type 2 diabetes mellitus with diabetic chronic kidney disease; I12.0 Hypertensive chronic kidney disease with stage 5 chronic kidney disease or end stage renal disease; N18.6 End stage renal disease; Z99.2 Dependence on renal dialysis; Z79.899 Other long term (current) drug therapy | CPT/HCPCS: 11042; A6402 ==

== ENCOUNTER 2017-03-23 08:33 | Outpatient (CLI) | payer MEDICARE, MEDICAID | END 2017-03-23 23:59 | disposition home health service (06) | LOC: WOU 08:33 | PROVIDERS: ATTEND Podiatrist Foot & Ankle Surgery | DX: E11.621 Type 2 diabetes mellitus with foot ulcer (principal); L97.512 Non-pressure chronic ulcer of other part of right foot with fat layer exposed; E11.51 Type 2 diabetes mellitus with diabetic peripheral angiopathy without gangrene; Z89.411 Acquired absence of right great toe; T81.31XD Disruption of external operation (surgical) wound, not elsewhere classified, subsequent encounter; E11.42 Type 2 diabetes mellitus with diabetic polyneuropathy | CPT/HCPCS: 11042; A6402 ==

== ENCOUNTER 2017-03-30 08:40 | Outpatient (CLI) | payer MEDICARE, MEDICAID | END 2017-03-30 23:59 | disposition home health service (06) | LOC: WOU 08:40 | PROVIDERS: ATTEND Podiatrist Foot & Ankle Surgery | DX: E11.621 Type 2 diabetes mellitus with foot ulcer (principal); L97.412 Non-pressure chronic ulcer of right heel and midfoot with fat layer exposed; T81.31XD Disruption of external operation (surgical) wound, not elsewhere classified, subsequent encounter; Z89.411 Acquired absence of right great toe; Z79.899 Other long term (current) drug therapy | CPT/HCPCS: 11042; A6402 ==

== ENCOUNTER 2017-04-06 08:34 | Outpatient (CLI) | payer MEDICARE, MEDICAID | END 2017-04-06 23:59 | disposition home health service (06) | LOC: WOU 08:34 | PROVIDERS: ATTEND Podiatrist Foot & Ankle Surgery | DX: E11.621 Type 2 diabetes mellitus with foot ulcer (principal); L97.512 Non-pressure chronic ulcer of other part of right foot with fat layer exposed; E11.42 Type 2 diabetes mellitus with diabetic polyneuropathy; T81.31XA Disruption of external operation (surgical) wound, not elsewhere classified, initial encounter; E11.51 Type 2 diabetes mellitus with diabetic peripheral angiopathy without gangrene; Z79.899 Other long term (current) drug therapy | CPT/HCPCS: 11042; A6402 ==

== ENCOUNTER 2017-04-20 08:54 | Outpatient (CLI) | payer MEDICARE, MEDICAID | END 2017-04-20 23:59 | disposition home health service (06) | LOC: WOU 08:54 | PROVIDERS: ATTEND Podiatrist Foot & Ankle Surgery | DX: E11.621 Type 2 diabetes mellitus with foot ulcer (principal); L97.512 Non-pressure chronic ulcer of other part of right foot with fat layer exposed; E11.42 Type 2 diabetes mellitus with diabetic polyneuropathy; T81.31XA Disruption of external operation (surgical) wound, not elsewhere classified, initial encounter | CPT/HCPCS: 11042; A6402 ==

== ENCOUNTER 2017-04-27 08:30 | Outpatient (CLI) | payer MEDICARE, MEDICAID | END 2017-04-27 23:59 | disposition home health service (06) | LOC: WOU 08:30 | PROVIDERS: ATTEND Podiatrist Foot & Ankle Surgery | DX: E11.621 Type 2 diabetes mellitus with foot ulcer (principal); L97.512 Non-pressure chronic ulcer of other part of right foot with fat layer exposed; E11.42 Type 2 diabetes mellitus with diabetic polyneuropathy; T81.31XA Disruption of external operation (surgical) wound, not elsewhere classified, initial encounter | CPT/HCPCS: 11042; A6402 ==

== ENCOUNTER 2017-05-04 08:30 | Outpatient (CLI) | payer MEDICARE, MEDICAID | END 2017-05-04 23:59 | disposition home or self-care (01) | LOC: WOU 08:30 | PROVIDERS: ATTEND Podiatrist Foot & Ankle Surgery | DX: E11.621 Type 2 diabetes mellitus with foot ulcer (principal); L97.512 Non-pressure chronic ulcer of other part of right foot with fat layer exposed; E11.42 Type 2 diabetes mellitus with diabetic polyneuropathy; E11.51 Type 2 diabetes mellitus with diabetic peripheral angiopathy without gangrene; T81.31XA Disruption of external operation (surgical) wound, not elsewhere classified, initial encounter; Z89.411 Acquired absence of right great toe | CPT/HCPCS: 11042; A6402 ==

== ENCOUNTER 2017-05-11 08:16 | Outpatient (CLI) | payer MEDICARE, MEDICAID | END 2017-05-11 23:59 | disposition home health service (06) | LOC: WOU 08:16 | PROVIDERS: ATTEND Podiatrist Foot & Ankle Surgery | DX: E11.621 Type 2 diabetes mellitus with foot ulcer (principal); L97.512 Non-pressure chronic ulcer of other part of right foot with fat layer exposed; T81.30XD Disruption of wound, unspecified, subsequent encounter; E11.42 Type 2 diabetes mellitus with diabetic polyneuropathy; E11.51 Type 2 diabetes mellitus with diabetic peripheral angiopathy without gangrene; Z87.891 Personal history of nicotine dependence; E11.22 Type 2 diabetes mellitus with diabetic chronic kidney disease; I12.0 Hypertensive chronic kidney disease with stage 5 chronic kidney disease or end stage renal disease; N18.6 End stage renal disease; Z99.2 Dependence on renal dialysis | CPT/HCPCS: 11042; 73630-TC; A6402 ==

== ENCOUNTER 2017-05-18 08:30 | Outpatient (CLI) | payer MEDICARE, MEDICAID | END 2017-05-18 23:59 | disposition home or self-care (01) | LOC: WOU 08:30 | PROVIDERS: ATTEND Podiatrist Foot & Ankle Surgery | DX: E11.621 Type 2 diabetes mellitus with foot ulcer (principal); L97.512 Non-pressure chronic ulcer of other part of right foot with fat layer exposed; E11.42 Type 2 diabetes mellitus with diabetic polyneuropathy; Z89.411 Acquired absence of right great toe; I87.312 Chronic venous hypertension (idiopathic) with ulcer of left lower extremity; E11.51 Type 2 diabetes mellitus with diabetic peripheral angiopathy without gangrene; Z87.891 Personal history of nicotine dependence; E11.22 Type 2 diabetes mellitus with diabetic chronic kidney disease; I12.0 Hypertensive chronic kidney disease with stage 5 chronic kidney disease or end stage renal disease; N18.6 End stage renal disease; Z99.2 Dependence on renal dialysis; Z79.899 Other long term (current) drug therapy | CPT/HCPCS: 11042; A6402 ==

== ENCOUNTER 2017-05-25 08:25 | Outpatient (CLI) | payer MEDICARE, MEDICAID | END 2017-05-25 23:59 | disposition home health service (06) | LOC: WOU 08:25 | PROVIDERS: ATTEND Podiatrist Foot & Ankle Surgery | DX: E11.621 Type 2 diabetes mellitus with foot ulcer (principal); L97.512 Non-pressure chronic ulcer of other part of right foot with fat layer exposed; E11.42 Type 2 diabetes mellitus with diabetic polyneuropathy; I87.312 Chronic venous hypertension (idiopathic) with ulcer of left lower extremity; T81.30XA Disruption of wound, unspecified, initial encounter; Z79.899 Other long term (current) drug therapy | CPT/HCPCS: 15275; A6402 ==

== ENCOUNTER 2017-06-01 08:00 | Outpatient (CLI) | payer MEDICARE, MEDICAID ==
[2017-06-01] MEDS ORDERED: ONDANSETRON 4 MG TAB.RAPDIS ONE (18:12)
== END 2017-06-01 23:59 | disposition home health service (06) ==
LOC: WOU 08:00
PROVIDERS: ATTEND Podiatrist Foot & Ankle Surgery
DX: E11.621 Type 2 diabetes mellitus with foot ulcer (principal); L97.512 Non-pressure chronic ulcer of other part of right foot with fat layer exposed; E11.42 Type 2 diabetes mellitus with diabetic polyneuropathy; Z89.411 Acquired absence of right great toe; E11.51 Type 2 diabetes mellitus with diabetic peripheral angiopathy without gangrene; Z87.891 Personal history of nicotine dependence; E11.22 Type 2 diabetes mellitus with diabetic chronic kidney disease; I12.0 Hypertensive chronic kidney disease with stage 5 chronic kidney disease or end stage renal disease; N18.6 End stage renal disease; Z99.2 Dependence on renal dialysis; Z79.899 Other long term (current) drug therapy
CPT/HCPCS: 15275; A6402; Q4133 ×2; Q0162

== ENCOUNTER 2017-06-08 08:20 | Outpatient (CLI) | payer MEDICARE, MEDICAID | END 2017-06-08 23:59 | disposition home health service (06) | LOC: WOU 08:20 | PROVIDERS: ATTEND Podiatrist Foot & Ankle Surgery | DX: E11.621 Type 2 diabetes mellitus with foot ulcer (principal); L97.512 Non-pressure chronic ulcer of other part of right foot with fat layer exposed; E11.42 Type 2 diabetes mellitus with diabetic polyneuropathy; Z89.411 Acquired absence of right great toe; E11.51 Type 2 diabetes mellitus with diabetic peripheral angiopathy without gangrene; E11.22 Type 2 diabetes mellitus with diabetic chronic kidney disease; I12.0 Hypertensive chronic kidney disease with stage 5 chronic kidney disease or end stage renal disease; N18.6 End stage renal disease; Z99.2 Dependence on renal dialysis; Z87.891 Personal history of nicotine dependence; Z79.899 Other long term (current) drug therapy | CPT/HCPCS: 15275; A6402 ×2; Q4133 ×2 ==

== ENCOUNTER 2017-06-15 08:20 | Outpatient (CLI) | payer MEDICARE, MEDICAID | END 2017-06-15 23:59 | disposition home health service (06) | LOC: WOU 08:20 | PROVIDERS: ATTEND Podiatrist Foot & Ankle Surgery | DX: E11.621 Type 2 diabetes mellitus with foot ulcer (principal); L97.512 Non-pressure chronic ulcer of other part of right foot with fat layer exposed; L60.3 Nail dystrophy; E11.42 Type 2 diabetes mellitus with diabetic polyneuropathy; Z89.411 Acquired absence of right great toe; Z87.891 Personal history of nicotine dependence; E11.51 Type 2 diabetes mellitus with diabetic peripheral angiopathy without gangrene; E11.22 Type 2 diabetes mellitus with diabetic chronic kidney disease; I12.0 Hypertensive chronic kidney disease with stage 5 chronic kidney disease or end stage renal disease; N18.6 End stage renal disease; Z99.2 Dependence on renal dialysis; Z91.11 Patient's noncompliance with dietary regimen | CPT/HCPCS: 11042; A6402 ==

== ENCOUNTER 2017-06-29 08:15 | Outpatient (CLI) | payer MEDICARE, MEDICAID | END 2017-06-29 23:59 | disposition home health service (06) | LOC: WOU 08:15 | PROVIDERS: ATTEND Podiatrist Foot & Ankle Surgery | DX: E11.621 Type 2 diabetes mellitus with foot ulcer (principal); L97.512 Non-pressure chronic ulcer of other part of right foot with fat layer exposed; E11.65 Type 2 diabetes mellitus with hyperglycemia; E11.42 Type 2 diabetes mellitus with diabetic polyneuropathy; E11.22 Type 2 diabetes mellitus with diabetic chronic kidney disease; I12.0 Hypertensive chronic kidney disease with stage 5 chronic kidney disease or end stage renal disease; N18.6 End stage renal disease; Z99.2 Dependence on renal dialysis; Z87.891 Personal history of nicotine dependence; E11.51 Type 2 diabetes mellitus with diabetic peripheral angiopathy without gangrene; E78.5 Hyperlipidemia, unspecified; Z79.899 Other long term (current) drug therapy; L60.3 Nail dystrophy; Z89.411 Acquired absence of right great toe | CPT/HCPCS: 11042; A6402 ==

== ENCOUNTER 2017-07-06 08:15 | Outpatient (CLI) | payer MEDICARE, MEDICAID | END 2017-07-06 23:59 | disposition home or self-care (01) | LOC: WOU 08:15 | PROVIDERS: ATTEND Podiatrist Foot & Ankle Surgery | DX: E11.621 Type 2 diabetes mellitus with foot ulcer (principal); L97.512 Non-pressure chronic ulcer of other part of right foot with fat layer exposed; E11.42 Type 2 diabetes mellitus with diabetic polyneuropathy; Z89.411 Acquired absence of right great toe; E11.22 Type 2 diabetes mellitus with diabetic chronic kidney disease; I12.0 Hypertensive chronic kidney disease with stage 5 chronic kidney disease or end stage renal disease; N18.6 End stage renal disease; Z99.2 Dependence on renal dialysis; Z87.891 Personal history of nicotine dependence; E11.51 Type 2 diabetes mellitus with diabetic peripheral angiopathy without gangrene; E78.5 Hyperlipidemia, unspecified; Z79.899 Other long term (current) drug therapy | CPT/HCPCS: 11042; A6402 ==

== ENCOUNTER 2017-07-13 08:30 | Outpatient (CLI) | payer MEDICARE, MEDICAID | END 2017-07-13 23:59 | disposition home health service (06) | LOC: WOU 08:30 | PROVIDERS: ATTEND Podiatrist Foot & Ankle Surgery | DX: E11.621 Type 2 diabetes mellitus with foot ulcer (principal); L97.512 Non-pressure chronic ulcer of other part of right foot with fat layer exposed; E11.42 Type 2 diabetes mellitus with diabetic polyneuropathy; Z89.411 Acquired absence of right great toe; E11.51 Type 2 diabetes mellitus with diabetic peripheral angiopathy without gangrene; E11.22 Type 2 diabetes mellitus with diabetic chronic kidney disease; I12.0 Hypertensive chronic kidney disease with stage 5 chronic kidney disease or end stage renal disease; N18.6 End stage renal disease; Z99.2 Dependence on renal dialysis; Z87.891 Personal history of nicotine dependence | CPT/HCPCS: 11042; A6402 ==

== ENCOUNTER 2017-07-20 11:40 | Outpatient (CLI) | payer MEDICARE, MEDICAID | END 2017-07-20 23:59 | disposition home health service (06) | LOC: WOU 11:40 | PROVIDERS: ATTEND Podiatrist Foot & Ankle Surgery | DX: E11.621 Type 2 diabetes mellitus with foot ulcer (principal); L97.512 Non-pressure chronic ulcer of other part of right foot with fat layer exposed; E11.42 Type 2 diabetes mellitus with diabetic polyneuropathy; Z89.411 Acquired absence of right great toe; L60.3 Nail dystrophy; Z98.84 Bariatric surgery status; Z79.4 Long term (current) use of insulin; Z87.891 Personal history of nicotine dependence; E11.22 Type 2 diabetes mellitus with diabetic chronic kidney disease; I12.0 Hypertensive chronic kidney disease with stage 5 chronic kidney disease or end stage renal disease; N18.6 End stage renal disease; Z99.2 Dependence on renal dialysis; E11.51 Type 2 diabetes mellitus with diabetic peripheral angiopathy without gangrene | CPT/HCPCS: 11042; A6402 ==

== ENCOUNTER 2017-07-27 08:30 | Outpatient (CLI) | payer MEDICARE, MEDICAID | END 2017-07-27 23:59 | disposition home health service (06) | LOC: WOU 08:30 | PROVIDERS: ATTEND Podiatrist Foot & Ankle Surgery | DX: E11.621 Type 2 diabetes mellitus with foot ulcer (principal); L97.512 Non-pressure chronic ulcer of other part of right foot with fat layer exposed; E11.42 Type 2 diabetes mellitus with diabetic polyneuropathy; Z89.411 Acquired absence of right great toe; L60.3 Nail dystrophy; E11.51 Type 2 diabetes mellitus with diabetic peripheral angiopathy without gangrene; E11.22 Type 2 diabetes mellitus with diabetic chronic kidney disease; I12.0 Hypertensive chronic kidney disease with stage 5 chronic kidney disease or end stage renal disease; N18.6 End stage renal disease; Z99.2 Dependence on renal dialysis; Z87.891 Personal history of nicotine dependence; E78.5 Hyperlipidemia, unspecified; Z79.899 Other long term (current) drug therapy | CPT/HCPCS: 11042; A6402 ==

== ENCOUNTER 2017-08-05 12:01 | Outpatient (CLI) | payer MEDICARE, MEDICAID ==
[~2017-08-05 12:01] MED LIST changes: +ASPI-1152 PO; -ASPI-991 PO; +OLME1TAB22 PO; -OLME1TAB3 PO; -ONDA-25 PO; +ONDA4TAB10 PO; -SUCR1TAB26 PO; +SUCR1TAB31 PO
== END 2017-08-05 23:59 | disposition home or self-care (01) ==
LOC: WOU 12:01
PROVIDERS: ATTEND Podiatrist Foot & Ankle Surgery
DX: E11.621 Type 2 diabetes mellitus with foot ulcer (principal); L97.512 Non-pressure chronic ulcer of other part of right foot with fat layer exposed; E11.42 Type 2 diabetes mellitus with diabetic polyneuropathy; Z89.411 Acquired absence of right great toe; L60.3 Nail dystrophy; E11.22 Type 2 diabetes mellitus with diabetic chronic kidney disease; I12.0 Hypertensive chronic kidney disease with stage 5 chronic kidney disease or end stage renal disease; N18.6 End stage renal disease; Z99.2 Dependence on renal dialysis; E11.51 Type 2 diabetes mellitus with diabetic peripheral angiopathy without gangrene
CPT/HCPCS: 11042; A6402

== ENCOUNTER 2017-08-12 11:20 | Outpatient (CLI) | payer MEDICARE, MEDICAID | END 2017-08-12 23:59 | disposition home or self-care (01) | LOC: WOU 11:20 | PROVIDERS: ATTEND Podiatrist Foot & Ankle Surgery | DX: E11.621 Type 2 diabetes mellitus with foot ulcer (principal); L97.412 Non-pressure chronic ulcer of right heel and midfoot with fat layer exposed; E11.42 Type 2 diabetes mellitus with diabetic polyneuropathy; Z89.411 Acquired absence of right great toe; L60.3 Nail dystrophy; Z79.899 Other long term (current) drug therapy | CPT/HCPCS: 11042; A6402 ==

== ENCOUNTER 2017-08-17 08:00 | Outpatient (CLI) | payer MEDICARE, MEDICAID | END 2017-08-17 23:59 | disposition home health service (06) | LOC: WOU 08:00 | PROVIDERS: ATTEND Podiatrist Foot & Ankle Surgery | DX: E11.621 Type 2 diabetes mellitus with foot ulcer (principal); L97.512 Non-pressure chronic ulcer of other part of right foot with fat layer exposed; E11.42 Type 2 diabetes mellitus with diabetic polyneuropathy; Z89.411 Acquired absence of right great toe; E11.51 Type 2 diabetes mellitus with diabetic peripheral angiopathy without gangrene; E11.22 Type 2 diabetes mellitus with diabetic chronic kidney disease; I12.0 Hypertensive chronic kidney disease with stage 5 chronic kidney disease or end stage renal disease; N18.6 End stage renal disease; Z99.2 Dependence on renal dialysis | CPT/HCPCS: 11042; A6402 ==

== ENCOUNTER 2017-08-24 08:10 | Outpatient (CLI) | payer MEDICARE, MEDICAID | END 2017-08-24 23:59 | disposition home health service (06) | LOC: WOU 08:10 | PROVIDERS: ATTEND Podiatrist Foot & Ankle Surgery | DX: E11.621 Type 2 diabetes mellitus with foot ulcer (principal); L97.412 Non-pressure chronic ulcer of right heel and midfoot with fat layer exposed; E11.42 Type 2 diabetes mellitus with diabetic polyneuropathy; Z89.411 Acquired absence of right great toe; E11.51 Type 2 diabetes mellitus with diabetic peripheral angiopathy without gangrene; Z87.891 Personal history of nicotine dependence; E11.22 Type 2 diabetes mellitus with diabetic chronic kidney disease; N18.6 End stage renal disease; I10 Essential (primary) hypertension; Z99.2 Dependence on renal dialysis; Z79.899 Other long term (current) drug therapy | CPT/HCPCS: 11042; A6402 ==

== ENCOUNTER 2017-08-31 08:10 | Outpatient (CLI) | payer MEDICARE, MEDICAID | END 2017-08-31 23:59 | disposition home health service (06) | LOC: WOU 08:10 | PROVIDERS: ATTEND Podiatrist Foot & Ankle Surgery | DX: E11.621 Type 2 diabetes mellitus with foot ulcer (principal); L97.512 Non-pressure chronic ulcer of other part of right foot with fat layer exposed; E11.42 Type 2 diabetes mellitus with diabetic polyneuropathy; Z89.411 Acquired absence of right great toe; E11.51 Type 2 diabetes mellitus with diabetic peripheral angiopathy without gangrene; Z87.891 Personal history of nicotine dependence; E11.22 Type 2 diabetes mellitus with diabetic chronic kidney disease; I12.0 Hypertensive chronic kidney disease with stage 5 chronic kidney disease or end stage renal disease; N18.6 End stage renal disease; Z99.2 Dependence on renal dialysis; Z83.3 Family history of diabetes mellitus | CPT/HCPCS: 11042; A6402 ==

== ENCOUNTER 2017-09-02 09:50 | Outpatient (CLI) | payer MEDICARE, MEDICAID ==
[2017-09-02] MEDS ORDERED: LACT10SO PO (15:20)
[2017-09-02] MEDS ORDERED: MEMA21CA PO (15:20)
[2017-09-02] MEDS ORDERED: SODI15OR8 PO (15:20)
[2017-09-02] MEDS ORDERED: CHOL200026 PO (15:20)
== END 2017-09-02 23:59 | disposition home health service (06) ==
LOC: WOU 09:50
PROVIDERS: ATTEND Podiatrist Foot & Ankle Surgery
DX: E11.621 Type 2 diabetes mellitus with foot ulcer (principal); L97.412 Non-pressure chronic ulcer of right heel and midfoot with fat layer exposed; E11.42 Type 2 diabetes mellitus with diabetic polyneuropathy; Z89.411 Acquired absence of right great toe; L03.115 Cellulitis of right lower limb; Z79.84 Long term (current) use of oral hypoglycemic drugs; Z83.3 Family history of diabetes mellitus; E11.22 Type 2 diabetes mellitus with diabetic chronic kidney disease; I12.0 Hypertensive chronic kidney disease with stage 5 chronic kidney disease or end stage renal disease; N18.6 End stage renal disease; Z99.2 Dependence on renal dialysis; E11.51 Type 2 diabetes mellitus with diabetic peripheral angiopathy without gangrene; E78.5 Hyperlipidemia, unspecified
CPT/HCPCS: A6402; G0463

== ENCOUNTER 2017-09-02 11:09 | Inpatient (IN) | payer MEDICARE, MEDICAID ==
[~2017-09-02] VITALS: Ht 167.6 cm; Wt 96.2 kg
[2017-09-02 12:00] VITALS: BP 130/52
[2017-09-02] MEDS ORDERED: BLOOD SUGAR DIAGNOSTIC 1 EACH STRIP IN SCH ×2 (12:00→12:30)
[2017-09-02] MEDS ORDERED: INSULIN REGULAR, HUMAN 100 UNIT/ML 10 ML VIAL SQ ONE (12:00)
[2017-09-02] MEDS ORDERED: DEXTROSE 50%-WATER 50 ML DISP.SYRIN IV PRN ×2 (12:00)
[2017-09-02] MEDS ORDERED: INSULIN REGULAR, HUMAN 100 UNIT/ML 3 ML VIAL SQ PRN (12:00)
--- NOTE | 2017-09-02 12:30 | NUR ---
ADMISSION NOTE RECEIVED PT. PT BROUGHT IN TO UNIT VIA WHEELCHAIR WITH . REPORT RECEIVED AT BEDSIDE. PT IS A DIRECT ADMIT FROM [facility]. INPATIENT ADMISSION FOR SURGICAL DEBRIDEMENT OF RIGHT FOOT DIABETIC ULCER WOUND SCHEDULED FOR 09/03/17. CONSENT FORM SIGNED AND PLACED IN CHART. PHOTOS TAKEN OF RIGHT FOOT AND PLACED IN CHART. NO S/S OF RESPIRATORY DISTRESS OR SOB. PT HAS NO C/O PAIN AT THIS TIME. VSS. NO IV ACCESS, ONE TO BE INSERTED PRIOR TO SX. ORDERS RECEIVED FROM DR. KRISTEN DE LA O. ADDITIONAL ORDERS PLACED BY DR. HOOD. MEDICATION RECONCILIATION REVIEW PERFORMED BY DR. DE LA O, FAXED TO PHARMACY. SAFETY MEASURES IN PLACE, CALL LIGHT WITHIN REACH. WILL CONTINUE TO MONITOR.
[2017-09-02 13:30] LABS: ALANINE AMINOTRANSFERASE 16 U/L (12-78); ALBUMIN 3.1 g/dL (3.4-5.0); ALKALINE PHOSPHATASE 125 U/L (46-116); ASPARTATE AMINOTRANSFERASE 9 U/L (15-37); BILIRUBIN,TOTAL 0.3 mg/dL (0.2-1.0); CALCIUM, SERUM 9.2 mg/dL (8.5-10.1); CARBON DIOXIDE 32 mmol/L (21-32); CHLORIDE 99 mmol/L (98-107); CREATININE 6.4 mg/dL (0.6-1.3); GLUCOSE 127 mg/dL (74-106); MAGNESIUM 2.2 mg/dL (1.8-2.4); PHOSPHORUS 3.5 mg/dL (2.5-4.9); SODIUM SERUM 138 mmol/L (136-145); TOTAL PROTEIN, SERUM 7.2 g/dL (6.4-8.2); TROPONIN I < 0.017 ng/mL (0.00-0.056); UREA NITROGEN, BLOOD 45 mg/dL (7-18)
[2017-09-02 13:33] LABS: BASOPHILS % (AUTO) 0.2 % (0.0-2.0); EOSINOPHILS # (AUTO) 0.1 /CMM (0.0-0.7); EOSINOPHILS % (AUTO) 1.3 % (0.0-6.0); HEMATOCRIT 34 % (39-51); HEMOGLOBIN 11.3 g/dL (13.5-17.5); LYMPHOCYTES # (AUTO) 2.2 /CMM (0.8-4.8); LYMPHOCYTES % (AUTO) 19.5 % (20.0-44.0); MEAN CORPUSCULAR HEMOGLOBIN 29 PG (26.0-33.0); MEAN CORPUSCULAR HGB CONC 33 g/dl (31.0-36.0); MEAN CORPUSCULAR VOLUME 88 fL (80-96); MONOCYTES # (AUTO) 1.1 /CMM (0.1-1.30); MONOCYTES % (AUTO) 9.7 % (2.0-12.0); NEUTROPHILS % (AUTO) 69.3 % (43.0-81.0); PLATELET COUNT (AUTO) 245 /CMM (150-450); RED BLOOD CELL COUNT(AUTO) 3.93 MIL/uL (4.5-6.0); WHITE BLOOD COUNT (AUTO) 11.5 K/uL (4.3-11.0)
[2017-09-02 13:35] LABS: INR 0.98 (0.87-1.13)
[2017-09-02 13:36] LABS: CHOLESTEROL 151 mg/dL (<200); FERRITIN 862 ng/mL (8-388); HDL CHOLESTEROL 42 mg/dL (40-60); LDL 60 mg/dL (0-99); THYROID STIMULATING HORMONE 0.731 uIU/mL (0.358-3.74); TRIGLYCERIDES 319 mg/dL (30-150)
[2017-09-02 13:48] LABS: IRON, SERUM 47 ug/dl (50-175); TOTAL IRON BINDING CAPACITY 218 ug/dl (250-450)
[2017-09-02] MEDS ORDERED: ZOLPIDEM TARTRATE 10 MG TABLET PO PRN (14:00)
[2017-09-02] MEDS ORDERED: clonazePAM 0.5 MG TABLET PO PRN (14:00)
[2017-09-02] MEDS ORDERED: ONDANSETRON 4 MG TAB.RAPDIS PO PRN (14:00)
[2017-09-02] MEDS ORDERED: MEMA21CA PO (15:20)
[2017-09-02] MEDS ORDERED: SODI15OR8 PO (15:20)
[2017-09-02] MEDS ORDERED: CHOL200026 PO (15:20)
[2017-09-02] MEDS ORDERED: LACT10SO PO (15:20)
[2017-09-02 16:00] VITALS: BP 124/58
[2017-09-02] MEDS ORDERED: LACTULOSE 10 G/15 ML UDC (PYXIS) PO PRN (16:30)
[2017-09-02] MEDS: SUCRALFATE 1 G TABLET PO SCH (17:13)
[2017-09-02] MEDS: FUROSEMIDE 80 MG TABLET PO SCH (17:13)
[2017-09-02] MEDS: INSULN 70/30 ASP+PRT/ASP MIX 100 UNIT/ML CARTRIDGE SQ SCH (17:14)
[2017-09-02] MEDS: CALCIUM ACETATE 667 MG TABLET PO SCH (17:22)
[2017-09-02] MEDS: SEVELAMER CARBONATE 800 MG TABLET PO SCH (17:23)
[2017-09-02] MEDS: BLOOD SUGAR DIAGNOSTIC 1 EACH STRIP IN SCH ×3 (17:24→22:00)
--- NOTE | 2017-09-02 18:30 | NUR ---
RN CLOSING NOTES PT IN BED SLEEPING. NO S/S OF SOB OR RESP DISTRESS. NO C/O PAIN AT THIS TIME. IV INSERTED IN LEFT FOREARM, 22G CURRENTLY SL. PT SCHEDULED FOR SURGICAL DEBRIDEMENT TOMORROW 09/03/17, CONSENT SIGNED AND PLACED IN CHART. ALL PT NEEDS ANTICIPATED AND MET. SAFETY MEASURES IN PLACE. CALL LIGHT WITHIN REACH. WILL ENDORSE TO WAREHOUSE SUPERVISOR 3RD SHIFT FOR WENDI.
--- NOTE | 2017-09-02 19:48 | NUR ---
MS/RN RECEIVE PATIENT LYING ON BED AWAKE, ALERT, ORIENTED, COMFORTABLE, NO C/O PAIN, NO DISTRESS NOTED, PLAN OF CARE DISCUSSED, SURGICAL DEBRIDEMENT OF RT. FOOT TOMORROW, NPO AFTER MIDNIGHT, VERBALIZED UNDERSTANDING AND AGREEMENT OF THE PLAN. CALL LIGHT IN REACH. WILL MONITOR.
[2017-09-02 20:00] VITALS: BP 130/56
[2017-09-02] MEDS ORDERED: NEUDEXTA PO SCH (21:00)
[2017-09-02] MEDS: CARVEDILOL 12.5 MG TABLET PO SCH (21:57)
[2017-09-02] MEDS: DIVALPROEX SODIUM 250 MG TABLET.DR PO SCH (21:58)
[2017-09-02] MEDS: ATORVASTATIN 40 MG TABLET PO SCH (22:00)
[2017-09-02] MEDS: INSULIN GLARGINE, 100 UNIT/ML CARTRIDGE SQ SCH (22:02)
[2017-09-02] MEDS: INSULIN REGULAR, HUMAN 100 UNIT/ML 3 ML VIAL SQ PRN (22:03)
--- NOTE | 2017-09-03 | NUR ---
MS/RN PATIENT IS SLEEPING AT THIS TIME, EASILY AROUSABLE,APPEAR COMFORTABLE, NO SIGNS OF DISTRESS NOTED, CALL LIGHT IN REACH. WILL CONTINUE TO MONITOR.
--- NOTE | 2017-09-03 06:25 | NUR ---
MS/RN PATIENT IS AWAKE, COMFORTABLE, NO C/O PAIN, NO DISTRESS NOTED, NPO POST MIDNIGHT. BLOOD SUGAR 194 DID NOT COVER WITH INSULIN DUE TO NPO STATUS. ALL NEEDS ATTENDED AT THIS TIME. WILL CONTINUE TO MONITOR.
--- NOTE | 2017-09-03 07:24 | NUR ---
MS/RN DR. SAUNDERS HERE, PER DR. SAUNDERS SURGERY IS CANCELLED TODAY AND IT WILL DONE TOMORROW. PATIENT CAN EAT.
[2017-09-03 07:27] LABS: INR 0.99 (0.87-1.13)
[2017-09-03] MEDS: BLOOD SUGAR DIAGNOSTIC 1 EACH STRIP IN SCH ×4 (07:30→21:40)
[2017-09-03 07:51] LABS: CALCIUM, SERUM 9.1 mg/dL (8.5-10.1); CARBON DIOXIDE 28 mmol/L (21-32); CHLORIDE 100 mmol/L (98-107); GLUCOSE 190 mg/dL (74-106); MAGNESIUM 2.3 mg/dL (1.8-2.4); PHOSPHORUS 4.5 mg/dL (2.5-4.9); SODIUM SERUM 138 mmol/L (136-145); UREA NITROGEN, BLOOD 62 mg/dL (7-18)
[2017-09-03 08:00] LABS: CREATININE 7.8 mg/dL (0.6-1.3); POTASSIUM 6.2 mmol/L (3.5-5.1)
--- NOTE | 2017-09-03 08:20 | NUR ---
MS RN RECEIVE DON BED, AWAKE,ALERT,ORIENTED X4,NOT IN ANY FORM OF DISTRESS, RESPIRATIONS EVEN AND UNLABORED,NO SOB NOTED.
[2017-09-03] MEDS: DIVALPROEX SODIUM 250 MG TABLET.DR PO SCH ×2 (08:53→21:36)
[2017-09-03] MEDS: FUROSEMIDE 80 MG TABLET PO SCH ×2 (08:53→17:30)
[2017-09-03] MEDS: CHOLECALCIFEROL 1,000 UNIT TABLET (VIT D3) PO SCH (08:53)
[2017-09-03] MEDS: CALCIUM ACETATE 667 MG TABLET PO SCH ×3 (08:53→17:30)
[2017-09-03] MEDS: VIT B CMPLX 3/FA/VIT C/BIOTIN 1 TAB TABLET PO SCH (08:53)
[2017-09-03] MEDS: MEMANTINE HCL 5 MG TABLET PO SCH ×2 (08:53→17:30)
[2017-09-03] MEDS: SUCRALFATE 1 G TABLET PO SCH ×3 (08:53→17:30)
[2017-09-03] MEDS: LINAGLIPTIN 5 MG TABLET PO SCH (08:53)
[2017-09-03] MEDS: SEVELAMER CARBONATE 800 MG TABLET PO SCH ×3 (08:53→17:30)
[2017-09-03] MEDS: PANTOPRAZOLE 40 MG TABLET.DR PO SCH (08:59)
[2017-09-03] MEDS: AMLODIPINE BESYLATE 5 MG TABLET PO SCH (09:00)
[2017-09-03] MEDS: METOLAZONE 2.5 MG TABLET PO SCH (09:00)
[2017-09-03] MEDS ORDERED: ALFUZOSIN 10 MG PO SCH (09:00)
[2017-09-03] MEDS ORDERED: BENICAR HCT PO SCH (09:00)
[2017-09-03] MEDS ORDERED: VICTOZA SQ SCH ×2 (09:00)
[2017-09-03] MEDS: CARVEDILOL 12.5 MG TABLET PO SCH ×2 (09:00→20:36)
[2017-09-03] MEDS ORDERED: VIIBRYD 40 MG PO SCH (09:00)
[2017-09-03] MEDS: INSULN 70/30 ASP+PRT/ASP MIX 100 UNIT/ML CARTRIDGE SQ SCH ×3 (09:02→17:32)
--- NOTE | 2017-09-03 10:30 | NUR ---
MS RN WAS SEEN BY DR. JAIRON Kwong/ ORDERS MADE AND CARRIED OUT
--- NOTE | 2017-09-03 12:00 | NUR ---
MS RN BS -422, GAVE COVERAGE 10 UNITS AND SCHEDULED ASPART.MD AWARE, NO ADDITIONAL COVERAGE GIVEN.
[2017-09-03] MEDS: INSULIN REGULAR, HUMAN 100 UNIT/ML 3 ML VIAL SQ PRN ×2 (12:21→17:32)
--- NOTE | 2017-09-03 12:30 | NUR ---
MS RN GAVE REPORT TO GET JUEN
--- NOTE | 2017-09-03 12:40 | NUR ---
RN NOTES RECEIVED PATIENT AWAKE ALERT AND VERBALLY RESPONSIVE, ABLE TO MAKE NEEDS KNOWN. RESPIRATIONS EVEN AND UNLABORED, IN NO APPARENT PAIN OR DISCOMFORT AT THIS TIME. IV ACCESS PATENT AND INTACT, NO REDNESS OR INFILTRATION NOTED. CURRENTLY ON HD TREATMENT, KEPT CLEAN DRY AND COMFORTABLE, CALL LIGHT WITHIN EASY REACH WILL CONTINUE TO MONITOR
--- NOTE | 2017-09-03 18:29 | NUR ---
RN NOTES PATIENT AWAKE ALERT AND VERBALLY RESPONSIVE, ABLE TO MAKE NEEDS KNOWN. RESPIRATIONS EVEN AND UNLABORED, IN NO APPARENT PAIN OR DISCOMFORT AT THIS TIME. IV ACCESS PATENT AND INTACT, NO REDNESS OR INFILTRATION NOTED. S/P HD TREATMENT TOLERATED WELL, KEPT CLEAN DRY AND COMFORTABLE, CALL LIGHT WITHIN EASY REACH WILL CONTINUE TO MONITOR AND ENDORSE TO NEXT SHIFT FOR CONTINUITY OF CARE
--- NOTE | 2017-09-03 19:35 | NUR ---
RN OPENING NOTES PATIENT IS IN BED, ALERT AND ORIENTED X3, SAMMARINESE SPEAKING. VS STABLE. DENIES PAIN OR DISCOMFORT AT THIS TIME. NO SOB NOTED. RESPIRATIONS EVEN AND UNLABORED. IV ACCESS ON LEFT ARM 22 G HL PATENT AND INTACT, NO REDNESS OR INFILTRATION NOTED. BED IN LOW AND LOCKED POSITION, SIDE RAILS X2. CALL LIGHT WITHIN EASY REACH. WILL CONTINUE TO MONITOR AND ASSESS DURING THE SHIFT.
[2017-09-03 20:00] VITALS: BP 99/53
[2017-09-03] MEDS: ATORVASTATIN 40 MG TABLET PO SCH (21:36)
[2017-09-03] MEDS: INSULIN GLARGINE, 100 UNIT/ML CARTRIDGE SQ SCH (21:50)
[2017-09-04] MEDS: BLOOD SUGAR DIAGNOSTIC 1 EACH STRIP IN SCH ×4 (06:30→21:44)
--- NOTE | 2017-09-04 06:34 | NUR ---
RN NOTES BS 116. NO INSULIN ADMINISTERED. WILL CONTINUE TO MONITOR.
--- NOTE | 2017-09-04 06:45 | NUR ---
RN CLOSING NOTES PATIENT IS IN BED, ALERT AND ORIENTED X3, [place] SPEAKING. VS STABLE. DENIES PAIN OR DISCOMFORT AT THIS TIME. NO SOB NOTED. RESPIRATIONS EVEN AND UNLABORED. IV ACCESS ON LEFT ARM 22 G HL PATENT AND INTACT, NO REDNESS OR INFILTRATION NOTED. PATIENT IS NPO SINCE MIDNIGHT DUE THE PROCEDURE AT 07:30 AM WITH . ALL NEEDS ARE MET AND MEDICATIONS GIVEN PER MD ORDER. BED IN LOW AND LOCKED POSITION, SIDE RAILS X2. CALL LIGHT WITHIN EASY REACH. WILL ENDORSE TO RN DAY SHIFT FOR WENDI.
[2017-09-04] MEDS ORDERED: LIDOCAINE 0.5% HCL 50 ML VIAL ONE (06:51)
[2017-09-04] MEDS ORDERED: ANESTHESIA TRAY IN PYXIS 1 EA TRAY MC ONE (06:51)
[2017-09-04] MEDS ORDERED: BUPIVACAINE 0.5 % PF 150 MG/30 ML VIAL ONE (06:51)
--- NOTE | 2017-09-04 07:10 | NUR ---
MS/RN OPENING NOTE RECEIVED PATIENT IN BED AWAKE. ALERT AND ORIENTED X3. RESPIRATION REGULAR AND UNLABORED. DENIES SOB, PAIN AT THIS TIME. IN NO APPARENT DISTRESS. LEFT ARM G 22 PATENT. PATIENT NPO SINCE MIGHNIGHT DUE TO SCHEDULED NPO. EXPECTING DIE CASTING MACHINE SETTER GOING TO OR AT 0730. BED LOW AND LOCKED. SIDE RAIL UP X2. CALL LIGHT WITHIN REACH. WILL CONTINUE TO MONITOR
[2017-09-04 07:11] LABS: BASOPHILS # (AUTO) 0.1 /CMM (0.0-0.2); BASOPHILS % (AUTO) 0.4 % (0.0-2.0); EOSINOPHILS # (AUTO) 0.2 /CMM (0.0-0.7); EOSINOPHILS % (AUTO) 1.2 % (0.0-6.0); HEMATOCRIT 36 % (39-51); LYMPHOCYTES # (AUTO) 2.5 /CMM (0.8-4.8); LYMPHOCYTES % (AUTO) 15.2 % (20.0-44.0); MEAN CORPUSCULAR HEMOGLOBIN 29 PG (26.0-33.0); MEAN CORPUSCULAR HGB CONC 33 g/dl (31.0-36.0); MEAN CORPUSCULAR VOLUME 87 fL (80-96); MONOCYTES # (AUTO) 1.3 /CMM (0.1-1.30); MONOCYTES % (AUTO) 7.8 % (2.0-12.0); NEUTROPHILS # (AUTO) 12.6 /CMM (1.8-8.9); NEUTROPHILS % (AUTO) 75.4 % (43.0-81.0); PLATELET COUNT (AUTO) 255 /CMM (150-450); RDW COEFFICIENT OF VARIATION 15.6 (11.5-15.0); RED BLOOD CELL COUNT(AUTO) 4.16 MIL/uL (4.5-6.0); WHITE BLOOD COUNT (AUTO) 16.8 K/uL (4.3-11.0)
--- NOTE | 2017-09-04 07:15 | NUR ---
MS/RN NOTE PATIENT IS PICKED UP ON A GURNEY GOING TO OR. PATIENT IN STABLE CONDITION. RESPIRATION REGULAR AND UNLABORED. DENIES SOB, DENIES PAIN.
[2017-09-04 07:23] LABS: CALCIUM, SERUM 9.1 mg/dL (8.5-10.1); CARBON DIOXIDE 30 mmol/L (21-32); CHLORIDE 101 mmol/L (98-107); GLUCOSE 115 mg/dL (74-106); MAGNESIUM 2.3 mg/dL (1.8-2.4); PHOSPHORUS 4.4 mg/dL (2.5-4.9); POTASSIUM 5.5 mmol/L (3.5-5.1); SODIUM SERUM 141 mmol/L (136-145); UREA NITROGEN, BLOOD 64 mg/dL (7-18)
[2017-09-04] MEDS: PANTOPRAZOLE 40 MG TABLET.DR PO SCH (07:30)
[2017-09-04] MEDS: CALCIUM ACETATE 667 MG TABLET PO SCH ×3 (08:00→17:23)
[2017-09-04] MEDS: SEVELAMER CARBONATE 800 MG TABLET PO SCH ×3 (08:00→17:23)
[2017-09-04] MEDS: AMLODIPINE BESYLATE 5 MG TABLET PO SCH (09:00)
[2017-09-04] MEDS: VIT B CMPLX 3/FA/VIT C/BIOTIN 1 TAB TABLET PO SCH (09:00)
[2017-09-04] MEDS: METOLAZONE 2.5 MG TABLET PO SCH (09:00)
[2017-09-04] MEDS: DIVALPROEX SODIUM 250 MG TABLET.DR PO SCH ×2 (09:00→21:46)
[2017-09-04] MEDS: CARVEDILOL 12.5 MG TABLET PO SCH ×2 (09:00→21:46)
[2017-09-04] MEDS: MEMANTINE HCL 5 MG TABLET PO SCH ×2 (09:00→17:23)
[2017-09-04] MEDS: SUCRALFATE 1 G TABLET PO SCH ×3 (09:00→17:22)
[2017-09-04] MEDS: FUROSEMIDE 80 MG TABLET PO SCH ×2 (09:00→17:23)
[2017-09-04] MEDS: INSULN 70/30 ASP+PRT/ASP MIX 100 UNIT/ML CARTRIDGE SQ SCH ×3 (09:00→17:25)
[2017-09-04] MEDS: LINAGLIPTIN 5 MG TABLET PO SCH (09:00)
[2017-09-04] MEDS: CHOLECALCIFEROL 1,000 UNIT TABLET (VIT D3) PO SCH (09:00)
[2017-09-04 10:15] VITALS: BP 114/93
--- NOTE | 2017-09-04 10:15 | NUR ---
MS/RN BACK FROM OR PATIENT IS BACK FROM OR ON A GURNEY. RESPIRATION REGULAR AND UNLABORED. DENIES SOB, DENIES PAIN. CAPILLARY REFILL WITHIN NORMAL LIMIT. VITAL SIGNS CHECKED. THE PATIENT IN STABLE CONDITION. WILL CONTINUE TO MONITOR.
[2017-09-04] MEDS: INSULIN REGULAR, HUMAN 100 UNIT/ML 3 ML VIAL SQ PRN ×3 (13:38→21:45)
[2017-09-04 15:55] VITALS: BP 123/59
--- NOTE | 2017-09-04 18:50 | NUR ---
MS/RN CLOSING NOTE PATIENT ALERT AND ORIENTED X4. DENIES SOB, PAIN. NORMAL CAPILLARY REFILL NOTED IN EXTREMITIES. RESPIRATION REGULAR AND UNLABORED. IN STABLE CONDITION. BLOOD SUGAR CHECK DONE AND COVERAGE GIVEN PER ORDER. NO ASE NOTED. BED LOW AND LOCKED. SIDE RAIL UP X2. CALL LIGHT WITHIN REACH. WILL ENDORSE TO NIGH SHIFT.
--- NOTE | 2017-09-04 19:30 | NUR ---
MS/RN NOTES RECEIVED PT. LYING IN BED. AWAKE, ALERT AND ORIENTED X3. BREATHING EVEN AND UNLABORED ON ROOM AIR. NO SOB, RESPIRATORY DISTRESS OR COMPLAINTS OF PAIN NOTED AT THIS TIME. PT. WITH LEFT ARM 22 GAUGE IV SALINE LOCK PRESENT, PATENT AND INTACT. PT. WITH RIGHT FOOT SPLINT PRESENT AND INTACT. NO BLEEDING OR DRAINAGE NOTED AT THIS TIME. BED LOCKED AND IN LOWEST POSITION, SIDE RAILS UP X2, BED ALARM ON, CALL LIGHT WITHIN REACH, WILL CONTINUE TO MONITOR.
[2017-09-04 20:23] VITALS: BP 130/59
[2017-09-04] MEDS: INSULIN GLARGINE, 100 UNIT/ML CARTRIDGE SQ SCH (21:45)
[2017-09-04] MEDS: ATORVASTATIN 40 MG TABLET PO SCH (21:46)
--- NOTE | 2017-09-05 06:08 | NUR ---
MS/RN NOTES PT. IS LYING IN BED RESTING. BREATHING EVEN AND UNLABORED ON ROOM AIR. NO SOB, RESPIRATORY DISTRESS OR COMPLAINTS OF PAIN NOTED AT THIS TIME. PT. WITH LEFT ARM 22 GAUGE IV SALINE LOCK PRESENT, PATENT AND INTACT. PT. WITH RIGHT FOOT SPLINT PRESENT AND INTACT. NO BLEEDING OR DRAINAGE NOTED AT THIS TIME AND THROUGHOUT SHIFT. ALL PT. NEEDS MET. BED LOCKED AND IN LOWEST POSITION, SIDE RAILS UP X2, BED ALARM ON, CALL LIGHT WITHIN REACH, WILL ENDORSE TO DAYSHIFT NURSE FOR CONTINUITY OF CARE.
[2017-09-05] MEDS: BLOOD SUGAR DIAGNOSTIC 1 EACH STRIP IN SCH (06:53)
[2017-09-05 08:00] VITALS: BP 143/65
--- NOTE | 2017-09-05 08:00 | NUR ---
MS RN RECEIVED ON BED, AWAKE,ALERT,ORIENTED X3,NOT IN ANY FORM OF DISTRESS, RESPIRATIONS EVEN AND UNLABORED,NO SOB NOTED,DENIES PAIN AT THIS TIME,ALL NEEDS ATTENDED.
[2017-09-05] MEDS: SEVELAMER CARBONATE 800 MG TABLET PO SCH ×2 (08:52→14:04)
[2017-09-05] MEDS: CALCIUM ACETATE 667 MG TABLET PO SCH ×2 (08:53→14:04)
[2017-09-05] MEDS: SUCRALFATE 1 G TABLET PO SCH ×2 (08:53→14:04)
[2017-09-05] MEDS: FUROSEMIDE 80 MG TABLET PO SCH (08:53)
[2017-09-05] MEDS: VIT B CMPLX 3/FA/VIT C/BIOTIN 1 TAB TABLET PO SCH (08:53)
[2017-09-05] MEDS: CHOLECALCIFEROL 1,000 UNIT TABLET (VIT D3) PO SCH (08:53)
[2017-09-05] MEDS: DIVALPROEX SODIUM 250 MG TABLET.DR PO SCH (08:53)
[2017-09-05] MEDS: LINAGLIPTIN 5 MG TABLET PO SCH (08:54)
[2017-09-05] MEDS: MEMANTINE HCL 5 MG TABLET PO SCH (08:54)
[2017-09-05] MEDS: PANTOPRAZOLE 40 MG TABLET.DR PO SCH (08:54)
--- NOTE | 2017-09-05 09:00 | NUR ---
MS DEUTSCH BREAKFAST SERVED,DUE MEDS GIVEN,TOLERATED WELL.
[2017-09-05] MEDS: INSULN 70/30 ASP+PRT/ASP MIX 100 UNIT/ML CARTRIDGE SQ SCH ×2 (09:09→14:12)
--- NOTE | 2017-09-05 13:00 | NUR ---
MS CITRIX ENGINEER DONE W/ 2600ML TAKEN, WAS SEEN BY DR. JENKINS W/ ORDER TO BE DISCHARGE HOME AFTER HD.
[2017-09-05] MEDS: INSULIN REGULAR, HUMAN 100 UNIT/ML 3 ML VIAL SQ PRN (14:00)
--- NOTE | 2017-09-05 14:10 | NUR ---
MS RN WENT HOME ACCOMPANIED BY , TO HAVE A FOLLOW UP W/ MD IN ONE WEEK, REFUSED TO TAKE PICTURE OF RIGHT FOOT AND LEFT ARM, PATIENT SAID THAT HE WILL HAVE A FOLLOW UP W/ [facility] IN 5 DAYS.ALL NEEDS ATTENDED.
== END 2017-09-05 14:00 | disposition home health service (06) | DRG 981 ==
LOC: WOUND3 11:09
PROVIDERS: ADMIT Internal Medicine; ATTEND Internal Medicine Nephrology
PROC: 5A1D70Z Performance of Urinary Filtration, Intermittent, Less than 6 Hours Per Day (ICD-10-PCS; 2017-09-03)
PROC: 0QBN0ZZ Excision of Right Metatarsal, Open Approach (ICD-10-PCS; principal; 2017-09-04 07:46)
PROC: 0L8N0ZZ Division of Right Lower Leg Tendon, Open Approach (ICD-10-PCS; 2017-09-04 07:46)
PROC: 5A1D70Z Performance of Urinary Filtration, Intermittent, Less than 6 Hours Per Day (ICD-10-PCS; 2017-09-05)
DX: L03.115 Cellulitis of right lower limb (principal); N18.6 End stage renal disease; E11.22 Type 2 diabetes mellitus with diabetic chronic kidney disease; E11.42 Type 2 diabetes mellitus with diabetic polyneuropathy; K92.2 Gastrointestinal hemorrhage, unspecified; E87.5 Hyperkalemia; I12.0 Hypertensive chronic kidney disease with stage 5 chronic kidney disease or end stage renal disease; E11.51 Type 2 diabetes mellitus with diabetic peripheral angiopathy without gangrene; L97.519 Non-pressure chronic ulcer of other part of right foot with unspecified severity; E11.621 Type 2 diabetes mellitus with foot ulcer; D63.8 Anemia in other chronic diseases classified elsewhere; E78.5 Hyperlipidemia, unspecified; Z99.2 Dependence on renal dialysis; I25.10 Atherosclerotic heart disease of native coronary artery without angina pectoris; Z89.419 Acquired absence of unspecified great toe; Z82.49 Family history of ischemic heart disease and other diseases of the circulatory system; Z79.4 Long term (current) use of insulin; Z79.899 Other long term (current) drug therapy; Z79.84 Long term (current) use of oral hypoglycemic drugs; Z79.82 Long term (current) use of aspirin
CPT/HCPCS: 36415; 71045-TC; 73630-TC; 80048-TC; 80053-TC; 80061-TC; 82306; 82728-TC; 82962-TC; 83540-TC; 83735-TC; 84100-TC; 84439-TC; 84443-TC; 84484-TC; 85025-TC; 85610-TC; 85652-TC; 87081-TC; 90935-TC; 93307-TC; A6253; A6402; J1815; J3490; Z7610

== ENCOUNTER 2017-09-09 11:50 | Outpatient (CLI) | payer MEDICARE, MEDICAID ==
[~2017-09-09 11:50] MED LIST changes: -AMLO5TAB2 PO; -ASPI-1152 PO; +CHOL200026 PO; +LACT10SO PO; -MEMA14CA PO; +MEMA21CA PO; +SODI15OR8 PO
== END 2017-09-09 23:59 | disposition home health service (06) ==
LOC: WOU 11:50
PROVIDERS: ATTEND Podiatrist Foot & Ankle Surgery
DX: Z48.01 Encounter for change or removal of surgical wound dressing (principal); E11.42 Type 2 diabetes mellitus with diabetic polyneuropathy; M79.671 Pain in right foot; Z87.891 Personal history of nicotine dependence; E11.51 Type 2 diabetes mellitus with diabetic peripheral angiopathy without gangrene; E11.22 Type 2 diabetes mellitus with diabetic chronic kidney disease; I12.0 Hypertensive chronic kidney disease with stage 5 chronic kidney disease or end stage renal disease; N18.6 End stage renal disease; Z99.2 Dependence on renal dialysis
CPT/HCPCS: A6253; A6402; G0463

== ENCOUNTER 2017-09-14 08:00 | Outpatient (CLI) | payer MEDICARE, MEDICAID | END 2017-09-14 23:59 | disposition home health service (06) | LOC: WOU 08:00 | PROVIDERS: ATTEND Podiatrist Foot & Ankle Surgery | DX: Z48.01 Encounter for change or removal of surgical wound dressing (principal); E11.42 Type 2 diabetes mellitus with diabetic polyneuropathy; Z89.411 Acquired absence of right great toe; E11.22 Type 2 diabetes mellitus with diabetic chronic kidney disease; I12.0 Hypertensive chronic kidney disease with stage 5 chronic kidney disease or end stage renal disease; N18.6 End stage renal disease; Z99.2 Dependence on renal dialysis; Z87.891 Personal history of nicotine dependence; E11.51 Type 2 diabetes mellitus with diabetic peripheral angiopathy without gangrene; I10 Essential (primary) hypertension; Z79.899 Other long term (current) drug therapy | CPT/HCPCS: A6253; A6402; G0463 ==

== ENCOUNTER 2017-09-23 08:45 | Outpatient (CLI) | payer MEDICARE, MEDICAID | END 2017-09-23 23:59 | disposition home health service (06) | LOC: WOU 08:45 | PROVIDERS: ATTEND Podiatrist Foot & Ankle Surgery | DX: T81.31XA Disruption of external operation (surgical) wound, not elsewhere classified, initial encounter (principal); E11.621 Type 2 diabetes mellitus with foot ulcer; L97.512 Non-pressure chronic ulcer of other part of right foot with fat layer exposed; E11.42 Type 2 diabetes mellitus with diabetic polyneuropathy; Z89.411 Acquired absence of right great toe; Z48.01 Encounter for change or removal of surgical wound dressing | CPT/HCPCS: 11042; A6402 ==

== ENCOUNTER 2017-09-28 08:10 | Outpatient (CLI) | payer MEDICARE, MEDICAID | END 2017-09-28 23:59 | disposition home health service (06) | LOC: WOU 08:10 | PROVIDERS: ATTEND Podiatrist Foot & Ankle Surgery | DX: E11.621 Type 2 diabetes mellitus with foot ulcer (principal); L97.522 Non-pressure chronic ulcer of other part of left foot with fat layer exposed; T81.31XA Disruption of external operation (surgical) wound, not elsewhere classified, initial encounter; E11.42 Type 2 diabetes mellitus with diabetic polyneuropathy; Z89.411 Acquired absence of right great toe; E11.22 Type 2 diabetes mellitus with diabetic chronic kidney disease; I12.0 Hypertensive chronic kidney disease with stage 5 chronic kidney disease or end stage renal disease; N18.6 End stage renal disease; Z99.2 Dependence on renal dialysis; Z87.891 Personal history of nicotine dependence; E11.51 Type 2 diabetes mellitus with diabetic peripheral angiopathy without gangrene; E78.5 Hyperlipidemia, unspecified; Z79.899 Other long term (current) drug therapy | CPT/HCPCS: 11042; A6402 ==

== ENCOUNTER 2017-10-05 08:00 | Outpatient (CLI) | payer MEDICARE, MEDICAID | END 2017-10-05 23:59 | disposition home health service (06) | LOC: WOU 08:00 | PROVIDERS: ATTEND Podiatrist Foot & Ankle Surgery | DX: T81.31XA Disruption of external operation (surgical) wound, not elsewhere classified, initial encounter (principal); E11.621 Type 2 diabetes mellitus with foot ulcer; L97.512 Non-pressure chronic ulcer of other part of right foot with fat layer exposed; E11.42 Type 2 diabetes mellitus with diabetic polyneuropathy; Z89.411 Acquired absence of right great toe; L60.3 Nail dystrophy; E11.51 Type 2 diabetes mellitus with diabetic peripheral angiopathy without gangrene; Z87.891 Personal history of nicotine dependence; E11.22 Type 2 diabetes mellitus with diabetic chronic kidney disease; I12.0 Hypertensive chronic kidney disease with stage 5 chronic kidney disease or end stage renal disease; N18.6 End stage renal disease; Z99.2 Dependence on renal dialysis | CPT/HCPCS: 11042; A6402 ==

== ENCOUNTER 2017-10-12 07:45 | Outpatient (CLI) | payer MEDICARE, MEDICAID | END 2017-10-12 23:59 | disposition home health service (06) | LOC: WOU 07:45 | PROVIDERS: ATTEND Podiatrist Foot & Ankle Surgery | DX: Z09 Encounter for follow-up examination after completed treatment for conditions other than malignant neoplasm (principal); Z89.411 Acquired absence of right great toe; E11.42 Type 2 diabetes mellitus with diabetic polyneuropathy; Z86.31 Personal history of diabetic foot ulcer; E11.22 Type 2 diabetes mellitus with diabetic chronic kidney disease; I12.0 Hypertensive chronic kidney disease with stage 5 chronic kidney disease or end stage renal disease; N18.6 End stage renal disease; Z99.2 Dependence on renal dialysis; Z87.891 Personal history of nicotine dependence | CPT/HCPCS: A6402; G0463 ==

== ENCOUNTER 2017-10-26 08:37 | Outpatient (CLI) | payer MEDICARE, MEDICAID | END 2017-10-26 23:59 | disposition home health service (06) | LOC: WOU 08:37 | PROVIDERS: ATTEND Podiatrist Foot & Ankle Surgery | DX: Z48.817 Encounter for surgical aftercare following surgery on the skin and subcutaneous tissue (principal); Z89.411 Acquired absence of right great toe; E11.42 Type 2 diabetes mellitus with diabetic polyneuropathy; E11.51 Type 2 diabetes mellitus with diabetic peripheral angiopathy without gangrene; E11.22 Type 2 diabetes mellitus with diabetic chronic kidney disease; I12.0 Hypertensive chronic kidney disease with stage 5 chronic kidney disease or end stage renal disease; N18.6 End stage renal disease; Z99.2 Dependence on renal dialysis | CPT/HCPCS: G0463 ==

== ENCOUNTER 2017-11-16 09:20 | Outpatient (CLI) | payer MEDICARE, MEDICAID ==
[~2017-11-16 09:20] MED LIST changes: +CLON0.5T12 PO; -CLON0.5T4 PO; +DIVA-76 PO; -DIVA250T6 PO
== END 2017-11-16 23:59 | disposition home health service (06) ==
LOC: WOU 09:20
PROVIDERS: ATTEND Podiatrist Foot & Ankle Surgery
DX: Z09 Encounter for follow-up examination after completed treatment for conditions other than malignant neoplasm (principal); Z89.411 Acquired absence of right great toe; E11.42 Type 2 diabetes mellitus with diabetic polyneuropathy; E11.51 Type 2 diabetes mellitus with diabetic peripheral angiopathy without gangrene; E78.5 Hyperlipidemia, unspecified; E11.22 Type 2 diabetes mellitus with diabetic chronic kidney disease; I12.0 Hypertensive chronic kidney disease with stage 5 chronic kidney disease or end stage renal disease; N18.6 End stage renal disease; Z99.2 Dependence on renal dialysis
CPT/HCPCS: G0463

== ENCOUNTER 2018-01-11 08:15 | Outpatient (CLI) | payer MEDICARE, MEDICAID | END 2018-01-11 23:59 | disposition home health service (06) | LOC: WOU 08:15 | PROVIDERS: ATTEND Podiatrist Foot & Ankle Surgery | DX: Z47.81 Encounter for orthopedic aftercare following surgical amputation (principal); Z89.411 Acquired absence of right great toe; E11.51 Type 2 diabetes mellitus with diabetic peripheral angiopathy without gangrene; E11.22 Type 2 diabetes mellitus with diabetic chronic kidney disease; I12.0 Hypertensive chronic kidney disease with stage 5 chronic kidney disease or end stage renal disease; N18.6 End stage renal disease; Z99.2 Dependence on renal dialysis; E78.5 Hyperlipidemia, unspecified | CPT/HCPCS: G0463 ==

== ENCOUNTER 2018-04-09 10:38 | Outpatient (CLI) | payer MEDICARE, MEDICAID ==
[2018-04-10] MEDS ORDERED: DIVA125C5 PO (14:39)
[2018-04-10] MEDS ORDERED: INSU200I4 SQ (14:39)
[2018-04-10] MEDS ORDERED: ASPI-1152 PO (14:40)
== END 2018-04-09 23:59 | disposition home or self-care (01) ==
LOC: RAD 10:38
DX: I70.0 Atherosclerosis of aorta (principal); I11.9 Hypertensive heart disease without heart failure; E11.9 Type 2 diabetes mellitus without complications; F41.8 Other specified anxiety disorders
CPT/HCPCS: 71046

== ENCOUNTER 2018-04-10 13:25 | Inpatient (IN) | payer MEDICARE, MEDICAID ==
[~2018-04-10] VITALS: Ht 167.6 cm; Wt 107.3 kg
[2018-04-10] MEDS ORDERED: DILTIAZEM HCL 25 MG IV ONE ×2 (13:46→15:02)
[2018-04-10 13:56] LABS: BASOPHILS # (AUTO) 0.4 /CMM (0.0-0.2); BASOPHILS % (AUTO) 2.6 % (0.0-2.0); EOSINOPHILS % (AUTO) 0.6 % (0.0-6.0); HEMATOCRIT 36 % (39-51); HEMOGLOBIN 11.6 g/dL (13.5-17.5); LYMPHOCYTES # (AUTO) 1.6 /CMM (0.8-4.8); LYMPHOCYTES % (AUTO) 10.5 % (20.0-44.0); MEAN CORPUSCULAR HEMOGLOBIN 28 PG (26.0-33.0); MEAN CORPUSCULAR HGB CONC 32 g/dl (31.0-36.0); MEAN CORPUSCULAR VOLUME 87 fL (80-96); MONOCYTES # (AUTO) 1.1 /CMM (0.1-1.30); MONOCYTES % (AUTO) 7.4 % (2.0-12.0); NEUTROPHILS # (AUTO) 11.8 /CMM (1.8-8.9); NEUTROPHILS % (AUTO) 78.9 % (43.0-81.0); PLATELET COUNT (AUTO) 329 /CMM (150-450); RDW COEFFICIENT OF VARIATION 14.8 (11.5-15.0); RED BLOOD CELL COUNT(AUTO) 4.18 MIL/uL (4.5-6.0)
[2018-04-10] MEDS ORDERED: DILTIAZEM HCL 50 MG IV IV ONE (14:00)
[2018-04-10 14:10] LABS: INR 0.94 (0.85-1.15)
[2018-04-10 14:12] LABS: TROPONIN I < 0.017 ng/mL (0.00-0.056)
[2018-04-10 14:17] LABS: ALANINE AMINOTRANSFERASE 18 U/L (12-78); ALBUMIN 2.8 g/dL (3.4-5.0); ALKALINE PHOSPHATASE 110 U/L (46-116); ASPARTATE AMINOTRANSFERASE 15 U/L (15-37); B-TYPE NATRIURETIC PEPTIDE 1185 PG/ML (0-125); BILIRUBIN,TOTAL 0.2 mg/dL (0.2-1.0); CALCIUM, SERUM 8.9 mg/dL (8.5-10.1); CARBON DIOXIDE 30 mmol/L (21-32); CHLORIDE 96 mmol/L (98-107); CREATININE 3.8 mg/dL (0.6-1.3); POTASSIUM 4.1 mmol/L (3.5-5.1); SODIUM SERUM 134 mmol/L (136-145); TOTAL PROTEIN, SERUM 7.1 g/dL (6.4-8.2); UREA NITROGEN, BLOOD 19 mg/dL (7-18)
[2018-04-10 14:19] LABS: GLUCOSE 372 mg/dL (74-106)
[2018-04-10] MEDS ORDERED: IV NS 0.9% 500 ML BAG IV ONE (14:30)
[2018-04-10] MEDS ORDERED: ASPIRIN 81 MG TAB.CHEW PO ONE (14:30)
[2018-04-10] MEDS ORDERED: DILTIAZEM HCL 25 MG IV IV ONE ×2 (14:30→18:00)
--- NOTE | 2018-04-10 14:38 | NUR ---
CALLED THE NEPHROLOGY GROUP AND DR RICH WAS PAGED.
[2018-04-10] MEDS ORDERED: INSU200I4 SQ (14:39)
[2018-04-10] MEDS ORDERED: DIVA125C5 PO (14:39)
--- NOTE | 2018-04-10 14:39 | NUR ---
CALLED NURSING LOCK INSTALLER AND REQUESTED A CRISTOBAL BED FOR THIS PT.
[2018-04-10] MEDS ORDERED: ASPI-1152 PO (14:40)
[2018-04-10] MEDS ORDERED: ASPIRIN 81 MG TAB.CHEW ONE (15:01)
--- NOTE | 2018-04-10 15:11 | NUR ---
PT IS ASSIGNED TO [facility] RM#: [id number], DX: RAPID [id number], AND ACCEPTING MD:DR RICH
--- NOTE | 2018-04-10 16:04 | NUR ---
REPORT GIVEN TO [facility]A PT ROOM 110
--- NOTE | 2018-04-10 16:45 | NUR ---
CRISTOBAL GREEN CHAIN MARKER NOTES PATIENT RECEIVED FROM ER AT 1630,REPORT RECEIVED FROM NURSE JOSE.PATIENT IS AXOX4 WITH PERIODS OF FORGETFULNESS.CAME VIA GURNEY.ON O2 2L VIA NASAL CANULA.SATURATING 97%.IV ON L WRIST WITH #22. IS AT BEDSIDE.ON TELE MONITOR ST 132.DENIED CHEST PAIN.WILL CONTINUE TO MONITOR.
[2018-04-10 18:00] VITALS: BP 116/61
--- NOTE | 2018-04-10 18:50 | NUR ---
RN CLOSING NOTES PATIENT HEART RATE WAS STILL HIGH 130-146, MADE AWARE.GOT NEW ORDER FOR DILTIAZEM IV 10MGX1,TO CONTINUE ALL HOME MEDS AND STARTED ON RENAL DIET.HANDED OVER HOME MEDIATION LIST TO THE PHARMACY. BODY CHECK DONE.WILL ENDORSE TO PM NURSE FOR WENDI.
[2018-04-10] MEDS ORDERED: ONDANSETRON 4 MG TAB.RAPDIS PO PRN (19:00)
--- NOTE | 2018-04-10 19:10 | NUR ---
RN CRISTOBAL NOTE PATIENT IS AOX3, SPEECH CLEAR, ABLE TO MAKE NEEDS KNOWN, DENIES PAIN, ON 2L O2, DENIES CARDIAC OR RESPIRATORY DISTRESS, ON TELE SR, EDGAR AV FISTULA, LEFT WRIST #22G, PATENT FLUSHING WELL, SITE CDI, SAFETY MAINTAINED AT ALL TIMES, CALL LIGHT WITHIN REACH, BED IN LOW LOCKED POSITION, WILL CONTINUE TO MONITOR FOR ANY CHANGES IN CONDITION.
[2018-04-10 20:00] VITALS: BP 114/54
[2018-04-10] MEDS: DIVALPROEX SODIUM 125 MG CAP.SPRINK PO SCH (21:01)
[2018-04-10] MEDS: CARVEDILOL 12.5 MG TABLET PO SCH (21:02)
[2018-04-10] MEDS ORDERED: ATORVASTATIN 40 MG TABLET PO SCH (22:00)
[2018-04-10] MEDS ORDERED: ZOLPIDEM TARTRATE 10 MG TABLET PO PRN (22:00)
[2018-04-11] VITALS: BP 120/60
[2018-04-11 04:00] VITALS: BP 147/57
[2018-04-11] MEDS ORDERED: PANTOPRAZOLE 40 MG TABLET.DR PO SCH (07:30)
[2018-04-11 08:00] VITALS: BP 149/58
--- NOTE | 2018-04-11 08:00 | NUR ---
CRISTOBAL NURSE NOTES RECEIVED PATIENT IN BED, ALERT AND ORIENTED X3, ABLE TO COMMUNICATE WELL, ABLE TO MAKE NEEDS KNOWN, WITH NASAL CANNULA WITH 2LPM, NO SHORTNESS OF BREATH NOTED, DENIES PAIN OF ANY KIND,ON TELE: SINUS RHYTHM HR AT 75, EDGAR AV FISTULA WITH BRUIT, LEFT WRIST #22G, PATENT FLUSHING WELL, SAFETY MAINTAINED AT ALL TIMES, CALL LIGHT WITHIN REACH, BED IN LOW LOCKED POSITION, WILL CONTINUE TO MONITOR FOR ANY CHANGES IN CONDITION.
[2018-04-11] MEDS: INSULN 70/30 ASP+PRT/ASP MIX 100 UNIT/ML CARTRIDGE SQ SCH ×2 (08:43→13:09)
[2018-04-11] MEDS: DIVALPROEX SODIUM 125 MG CAP.SPRINK PO SCH (08:45)
[2018-04-11] MEDS: CALCIUM ACETATE 667 MG TABLET PO SCH ×2 (08:46→13:04)
[2018-04-11] MEDS: ASPIRIN EC 81 MG TABLET.DR PO SCH ×2 (08:46→09:49)
[2018-04-11] MEDS: SUCRALFATE 1 G TABLET PO SCH ×2 (08:47→13:04)
[2018-04-11] MEDS: CARVEDILOL 12.5 MG TABLET PO SCH (08:51)
[2018-04-11] MEDS ORDERED: METOLAZONE 2.5 MG TABLET PO SCH (09:00)
[2018-04-11] MEDS ORDERED: CHOLECALCIFEROL 1,000 UNIT TABLET (VIT D3) PO SCH (09:00)
[2018-04-11] MEDS ORDERED: LOSARTAN/HCTZ 50-12.5MG/ 1 EA TABLET PO SCH (09:00)
[2018-04-11] MEDS ORDERED: FUROSEMIDE 80 MG TABLET PO SCH (09:00)
[2018-04-11] MEDS ORDERED: NEUDEXTA PO SCH (09:00)
[2018-04-11] MEDS ORDERED: MEMANTINE HCL 5 MG TABLET PO SCH (09:00)
--- NOTE | 2018-04-11 09:00 | NUR ---
CRISTOBAL NURSE NOTES PATIENT REFUSED TO TAKE ASPIRIN DUE TO RECENT BLOOD EXTRACTION.
--- NOTE | 2018-04-11 11:00 | NUR ---
CRISTOBAL NURSE NOTES SEEN AND EXAMINED BY DT. RICH. PER , OK TO BE DISCHARGE IF OK WITH SCORING MACHINE OPERATOR.
--- NOTE | 2018-04-11 11:26 | NUR ---
CRISTOBAL NURSE NOTES BLOOD SUGAR RECHECKED DUE TO HIGH RESULT INITIALLY AT 5O8. BLOOD SUGAR AT [address] BRAND CONTACTED BY CHARGE NURSE SOON TO INFORM ABOUT CURRENT BLOOD SUGAR LEVEL. STAT BLOOD SUGAR DRAW BY LABORATORY ORDERED. OBTAINED ORDER FOR REGULAR INSULIN 20 UNITS ONCE. GIVEN ORDERED. WILL CONTINUE TO MONITOR PATIENT.
--- NOTE | 2018-04-11 11:47 | NUR ---
CRISTOBAL RN, [facility] to re; bs of 526 ordered glucose of 526 waiting for returning call back
--- NOTE | 2018-04-11 11:47 | NUR ---
BLOOD SUGAR RESULTS: PT HAD A CRITICAL BLOOD SUGAR OF 527. REPEAT TEST DONE PER PROTOCOL AND RESULTED TO 508. PT'S PRIMARY RN NOTIFIED OF CRITICAL VALUES
--- NOTE | 2018-04-11 11:51 | NUR ---
CRISTOBAL RN ,orders obtained with regular insulin 20 units /sq now and accucheck ac and hs with coverage given
[2018-04-11 12:00] VITALS: BP 123/63
[2018-04-11] MEDS ORDERED: *INSULIN REGULAR(HUMULIN R)HUM 100 UNIT/ML VIAL SQ PRN (12:00)
[2018-04-11] MEDS ORDERED: INSULIN REGULAR, HUMAN 100 UNIT/ML 3 ML VIAL SQ PRN (12:00)
[2018-04-11] MEDS ORDERED: BLOOD SUGAR DIAGNOSTIC 1 EACH STRIP VI SCH (12:00)
[2018-04-11] MEDS ORDERED: INSULIN REGULAR, HUMAN 100 UNIT/ML 10 ML VIAL IV ONE (12:00)
[2018-04-11] MEDS ORDERED: DEXTROSE 50%-WATER 50 ML DISP.SYRIN IV PRN (12:00)
--- NOTE | 2018-04-11 12:00 | NUR ---
CRISTOBAL NURSE NOTES PATIENT REFUSED STAT BLOOD SUGAR CHECK BY LABORATORY. RISK AND BENEFITS DISCUSSED BUT EDA REFUSED
[2018-04-11 12:05] VITALS: BP 123/63
[2018-04-11] MEDS ORDERED: ALFUZOSIN 10 MG PO SCH (12:53)
[2018-04-11] MEDS ORDERED: VICTOZA SQ SCH (12:56)
[2018-04-11] MEDS ORDERED: BLOOD SUGAR DIAGNOSTIC 1 EACH STRIP IN SCH (13:00)
--- NOTE | 2018-04-11 13:00 | NUR ---
CRISTOBAL NURSE NOTES BLOOD SUGAR RECHECKED , AT 487 ATH THIS TIME. DUE NOVOLOF 70/30 36 UNITS GIVEN ORDERED. WILL RECHECKED. WILL CONTINUE TO MONITOR PATIENT.
--- NOTE | 2018-04-11 14:30 | NUR ---
CRISTOBAL NURSE NOTES SEEN AND EXAMINED BY DR. GONZALEZ. WITH NEW ORDERS MADE
--- NOTE | 2018-04-11 15:30 | NUR ---
CRISTOBAL NURSE NOTES AT BEDSIDE "NO NEED FOR HIM TO BE HERE. WE WANT TO GO HOME". INFORMED THAT ONCE DISCHARGE IS ORDER, DISCHARGE PROCESS WILL BE STARTED INITIATED.
[2018-04-11 16:00] VITALS: BP 143/61
--- NOTE | 2018-04-11 16:00 | NUR ---
CRISTOBAL NURSE NOTES CALLED DR GONZALEZ, PER , OK TO DISCHARGE THE PATIENT CARDIAC AND SINCE OK FROM DR. RICH.
--- NOTE | 2018-04-11 16:15 | NUR ---
CRISTOBAL NURSES NOTES WENT TO BEDSIDE, PATIENT TAKEN OFF TELEMETRY LEADS. ASKING NURSE TO REMOVE IV LINE WELL. "I WILL SIGN PAPERS" INFORMED HER THAT THE DISCHARGE PROCESS ARE BEING PREPARED AND THAT PICTURES ARE TO BE TAKEN FOR DOCUMENTATION URPOSES BUT DECLINED. "JUST GET THIS THING OFF AND IM GOING TO TAKE THE WHEELCHAIR IN MY CAR. i DONT NEED HELP". LEFT THE ROOM.
--- NOTE | 2018-04-11 16:30 | NUR ---
CRISOTBAL NURSE NOTES PATIENT LEFT VIA WHEELCHAIR ACCOMPANIED WITH . EXIT CARE DONE. NO PHOTO TAKEN DUE TO REFUSAL. ALL QUESTION ADDRESSED APPROPRIATELY. DISCHARGED INSTRUCTIONS AND MEDICATION LIST AND INSTRUCTION GIVEN TO "I KNOW HOW TO READ". ALL HOME MEDICATIONS BROUGHT IN HAVE BEEN HANDED BACK TO THE .
[2018-04-11] MEDS ORDERED: CARVEDILOL 12.5 MG TABLET PO SCH (21:00)
[2018-04-11] MEDS ORDERED: TRESIBA SQ SCH (22:00)
== END 2018-04-11 16:50 | disposition home or self-care (01) | DRG 308 ==
LOC: ER 13:26 → TELE-TD 15:18
PROVIDERS: ADMIT Internal Medicine; ATTEND Internal Medicine
DX: I48.91 Unspecified atrial fibrillation (principal); N18.6 End stage renal disease; I13.2 Hypertensive heart and chronic kidney disease with heart failure and with stage 5 chronic kidney disease, or end stage renal disease; I50.9 Heart failure, unspecified; F03.90 Unspecified dementia, unspecified severity, without behavioral disturbance, psychotic disturbance, mood disturbance, and anxiety; E11.22 Type 2 diabetes mellitus with diabetic chronic kidney disease; E11.51 Type 2 diabetes mellitus with diabetic peripheral angiopathy without gangrene; Z98.890 Other specified postprocedural states; Z79.4 Long term (current) use of insulin; Z79.82 Long term (current) use of aspirin; Z79.899 Other long term (current) drug therapy; I25.10 Atherosclerotic heart disease of native coronary artery without angina pectoris; E78.5 Hyperlipidemia, unspecified; Z89.429 Acquired absence of other toe(s), unspecified side; Z99.2 Dependence on renal dialysis; Z82.49 Family history of ischemic heart disease and other diseases of the circulatory system; I11.0 Hypertensive heart disease with heart failure
CPT/HCPCS: 36415; 71045-TC; 80048-TC; 80076-TC; 82962-TC; 83880; 84484-TC; 85025-TC; 85730-TC; 87081-TC; 93307-TC; A4606; J1815; J3490; J7040; Z7610

== ENCOUNTER 2018-05-03 08:00 | Outpatient (CLI) | payer MEDICARE, MEDICAID ==
[~2018-05-03 08:00] MED LIST changes: +ASPI-1152 PO; -CLON0.5T12 PO; -DIVA-76 PO; +DIVA125C5 PO; -FOLI0.8T23 PO; -INSU100V7 SQ; +INSU200I4 SQ; -LACT10SO PO; -SEVE800T8 PO; -SITA50TA PO; -SODI15OR8 PO; -VILA40TA PO
== END 2018-05-03 23:59 | disposition home or self-care (01) ==
LOC: WOU 08:00
PROVIDERS: ATTEND Podiatrist Foot & Ankle Surgery
DX: Z09 Encounter for follow-up examination after completed treatment for conditions other than malignant neoplasm (principal); Z89.411 Acquired absence of right great toe; E11.42 Type 2 diabetes mellitus with diabetic polyneuropathy; E11.51 Type 2 diabetes mellitus with diabetic peripheral angiopathy without gangrene; L84 Corns and callosities; L60.3 Nail dystrophy; E11.22 Type 2 diabetes mellitus with diabetic chronic kidney disease; I12.0 Hypertensive chronic kidney disease with stage 5 chronic kidney disease or end stage renal disease; N18.6 End stage renal disease; Z99.2 Dependence on renal dialysis
CPT/HCPCS: G0463; Z7610

== ENCOUNTER 2018-08-16 08:15 | Outpatient (CLI) | payer MEDICARE, MEDICAID | END 2018-08-16 23:59 | disposition home or self-care (01) | LOC: WOU 08:15 | PROVIDERS: ATTEND Podiatrist Foot & Ankle Surgery | DX: E11.42 Type 2 diabetes mellitus with diabetic polyneuropathy (principal); L84 Corns and callosities; L60.3 Nail dystrophy; Z89.411 Acquired absence of right great toe; E11.22 Type 2 diabetes mellitus with diabetic chronic kidney disease; I12.0 Hypertensive chronic kidney disease with stage 5 chronic kidney disease or end stage renal disease; N18.6 End stage renal disease; Z99.2 Dependence on renal dialysis | CPT/HCPCS: A6402; G0463 ==

== ENCOUNTER 2018-11-08 09:10 | Outpatient (CLI) | payer MEDICARE, MEDICAID | END 2018-11-08 23:59 | disposition home or self-care (01) | LOC: WOU 09:10 | PROVIDERS: ATTEND Podiatrist Foot & Ankle Surgery | DX: E11.42 Type 2 diabetes mellitus with diabetic polyneuropathy (principal); L84 Corns and callosities; L60.3 Nail dystrophy; E11.22 Type 2 diabetes mellitus with diabetic chronic kidney disease; I12.0 Hypertensive chronic kidney disease with stage 5 chronic kidney disease or end stage renal disease; N18.6 End stage renal disease; Z99.2 Dependence on renal dialysis; Z89.411 Acquired absence of right great toe | CPT/HCPCS: G0463 ==

== ENCOUNTER 2019-01-10 08:00 | Outpatient (CLI) | payer MEDICARE, MEDICAID ==
[~2019-01-10 08:00] MED LIST changes: +AZITHROMYCIN 500 MG VIAL ONE; +WATER FOR INJECTION,STERILE 10 ML ONE
== END 2019-01-10 23:59 | disposition home or self-care (01) ==
LOC: WOU 08:00
PROVIDERS: ATTEND Podiatrist Foot & Ankle Surgery
DX: E11.42 Type 2 diabetes mellitus with diabetic polyneuropathy (principal); E11.22 Type 2 diabetes mellitus with diabetic chronic kidney disease; I12.0 Hypertensive chronic kidney disease with stage 5 chronic kidney disease or end stage renal disease; N18.6 End stage renal disease; Z99.2 Dependence on renal dialysis; L84 Corns and callosities; L60.3 Nail dystrophy; Z89.411 Acquired absence of right great toe
CPT/HCPCS: A6402; G0463; J0456

== ENCOUNTER 2019-03-07 08:05 | Outpatient (CLI) | payer MEDICARE, MEDICAID ==
[~2019-03-07 08:05] MED LIST changes: -AZITHROMYCIN 500 MG VIAL ONE; -WATER FOR INJECTION,STERILE 10 ML ONE
== END 2019-03-07 23:59 | disposition home or self-care (01) ==
LOC: WOU 08:05
PROVIDERS: ATTEND Podiatrist Foot & Ankle Surgery
DX: E11.42 Type 2 diabetes mellitus with diabetic polyneuropathy (principal); E11.22 Type 2 diabetes mellitus with diabetic chronic kidney disease; I12.0 Hypertensive chronic kidney disease with stage 5 chronic kidney disease or end stage renal disease; N18.6 End stage renal disease; Z99.2 Dependence on renal dialysis; L84 Corns and callosities; L60.3 Nail dystrophy; Z89.411 Acquired absence of right great toe
CPT/HCPCS: G0463

== ENCOUNTER 2019-05-02 08:00 | Outpatient (CLI) | payer MEDICARE, MEDICAID | END 2019-05-02 23:59 | disposition home or self-care (01) | LOC: WOU 08:00 | PROVIDERS: ATTEND Podiatrist Foot & Ankle Surgery | DX: E11.42 Type 2 diabetes mellitus with diabetic polyneuropathy (principal); L84 Corns and callosities; L60.3 Nail dystrophy; Z89.411 Acquired absence of right great toe | CPT/HCPCS: G0463 ==

== ENCOUNTER 2019-05-10 13:57 | Inpatient (IN) | payer MEDICARE, MEDICAID ==
[~2019-05-10] VITALS: Ht 160 cm; Wt 109.3 kg
--- NOTE | 2019-05-10 14:13 | NUR ---
JAQUELIN IVERSON 61 From Home "weak-just got back from dialysis called NOT acting like usual" PATIENT A/OX2, BREATHING EVEN AND UNLABORED, NO SOB NOTED, CHANGED INTO GOWN, ATTACHED TO THE GLASS DEPOSITION TENDER. AT BEDSIDE.
[2019-05-10 14:32] LABS: BASOPHILS # (AUTO) 0.1 /CMM (0.0-0.2); BASOPHILS % (AUTO) 0.8 % (0.0-2.0); HEMATOCRIT 37 % (39-51); HEMOGLOBIN 12.1 g/dL (13.5-17.5); LYMPHOCYTES # (AUTO) 1.4 /CMM (0.8-4.8); LYMPHOCYTES % (AUTO) 10.7 % (20.0-44.0); MEAN CORPUSCULAR HGB CONC 33 g/dl (31.0-36.0); MEAN CORPUSCULAR VOLUME 89 fL (80-96); MONOCYTES # (AUTO) 1.7 /CMM (0.1-1.30); MONOCYTES % (AUTO) 12.8 % (2.0-12.0); NEUTROPHILS % (AUTO) 74.7 % (43.0-81.0); PLATELET COUNT (AUTO) 292 /CMM (150-450); RED BLOOD CELL COUNT(AUTO) 4.15 MIL/uL (4.5-6.0); WHITE BLOOD COUNT (AUTO) 13.4 K/uL (4.3-11.0)
[2019-05-10 14:40] LABS: CARBON DIOXIDE 33 mmol/L (21-32); CHLORIDE 95 mmol/L (98-107); CREATININE 4.8 mg/dL (0.6-1.3); GLUCOSE 288 mg/dL (74-106); POTASSIUM 4.9 mmol/L (3.5-5.1); SODIUM SERUM 136 mmol/L (136-145); UREA NITROGEN, BLOOD 29 mg/dL (7-18)
[2019-05-10 14:47] LABS: ALANINE AMINOTRANSFERASE 17 U/L (12-78); ALKALINE PHOSPHATASE 146 U/L (46-116); ASPARTATE AMINOTRANSFERASE 20 U/L (15-37); BILIRUBIN,DIRECT 0.1 mg/dL (0.0-0.2); BILIRUBIN,TOTAL 0.2 mg/dL (0.2-1.0); TOTAL PROTEIN, SERUM 7.2 g/dL (6.4-8.2)
[2019-05-10 15:14] LABS: SERUM AMMONIA 25 umol/L (11-32)
[2019-05-10] MEDS ORDERED: IRBE150T28 PO (15:20)
[2019-05-10] MEDS ORDERED: METO-295 PO (15:20)
[2019-05-10] MEDS ORDERED: CLON0.5T12 PO (15:20)
[2019-05-10] MEDS ORDERED: CHOL200026 PO (15:20)
--- NOTE | 2019-05-10 15:44 | NUR ---
CALLED DR KEBEDE FOR A DR TO
--- NOTE | 2019-05-10 15:44 | NUR ---
CALLED HOUSE SUP FOR TELE BED
--- NOTE | 2019-05-10 15:53 | NUR ---
BED ASSIGN TO 117-1
[2019-05-10] MEDS ORDERED: LEVOFLOXACIN 750 MG /D5W 150ML 150 ML IV ONE (16:00)
--- NOTE | 2019-05-10 16:14 | NUR ---
CALLED FOR A FOLLOW UP TO HAVE A DR TO . PRODUCT LISTER WILL LEAVE ANOTHER MESSAGE FOR DR KEBEDE
--- NOTE | 2019-05-10 16:45 | NUR ---
CALLED TO FOLLOW UP FOR A DR TO
--- NOTE | 2019-05-10 17:04 | NUR ---
TELE1/RN REPORT FROM ER RECEIVED REPORT FROM ER NURSE VANESA FOR PT TO BE ADMITTED FOR CHRONIC RENAL FAILURE, BRONCHITIS AND ALTERED MENTAL STATUS, UNDER THE CARE OF DR. KEBEDE. AWAITING FOR PT'S ARRIVAL.
--- NOTE | 2019-05-10 17:04 | NUR ---
REPORT GIVEN TO MONIQUE DEUTSCH.
--- NOTE | 2019-05-10 17:47 | NUR ---
TELE1/ENVIRONMENTAL SERVICES PROJECT MANAGER TO TELE1 - 117#1 PT ARRIVED VIA [facility] ACCOMPANIED BY ER NURSE, TRANSPORT PERSONNEL AND PT'S . PT TRANSFERRED FROM RDRAPER TO BED WITH 3 STAFF FULL ASSIST. PT A/O X 3, VERBALIZED BEING WEAK. ON PLACED ON 2L O2 VIA N/C SATURATING @ 95%, RESPIRATIONS EVEN & UNLABORED, LUNG SOUNDS CLEAR. TELE BOX PLACED, SINUS RHYTHM, HR 90. IV SITE FLUSHED, PATENT WITH NO S/S OF INFECTION. FUNCTIONING AV FISTULA ON RIGHT UPPER ARM POSITIVE OF THRILL AND BRUIT. OLD NON-FUNCTIONING AV FISTULA ON LEFT UPPER ARM NEGATIVE OF THRILL AND BRUIT. PT NOTED WITH PITTING EDEMA +2 ON LOWER BILATERAL LEGS. ADMISSION PROTOCOLS IN PROGRESS, PT ORIENTED TO HIS SURROUNDINGS. CL WITHIN REACHED AND SAFETY MAINTAINED.
--- NOTE | 2019-05-10 17:53 | NUR ---
PATIENTT RANSFERRED TO ROOM 117-1 VIA ACLS PROTOCOL. NO DISTRESS NOTED. AT BEDSIDE.
[2019-05-10 18:00] VITALS: BP 114/56
--- NOTE | 2019-05-10 19:20 | NUR ---
RN OPENING NOTE: PATIENT IN BED, AWAKE, AND VERBALLY RESPONSIVE. NO SOB. NO PAIN. ON O2 AT 2LPM VIA NC SATTING 94%. SAFETY PRECAUTIONS IMPLEMENTED. BED LOCKED AND IN LOWEST POSITION. SIDE RAILS X 2 UP. LEFT HAND IV SITE 18G PATENT AND INTACT. CALL LIGHT PLACED WITHIN REACH. WILL CONT. TO MONITOR.
--- NOTE | 2019-05-10 19:33 | NUR ---
TELE1/RN AM SHIFT END NOTES PT STABLE SINCE ADMITTED LATE THIS EVENING. PT ENDORSED TO PM NURSE TO COMPLETE ADMISSION PROTOCOLS. PT'S CL WITHIN REACHED AND SAFETY MAINTAINED.
--- NOTE | 2019-05-10 19:45 | NUR ---
RN NOTE: PLACED A CALL TO CHRISTOPHER () FOR CONSENT TO HEMODIALYSIS FOR PATIENT. PER , SHE WANTS TO WAIT UNTIL TOMORROW TO SIGN BECAUSE SHE WANTS TO SEE FIRST IF PATIENT IS STAYING IN THE HOSPITAL UNTIL THURSDAY. EXPLAINED TO THE RISKS AND BENEFITS IN CASE THERE WILL BE AN EMERGENCY DIALYSIS. STILL REFUSED TO CONSENT AT THIS TIME. WITNESSED BY GET SANTOS AND CHARGE NURSE AWARE.
[2019-05-10 20:00] VITALS: BP 114/47
[2019-05-10] MEDS ORDERED: ZOLPIDEM TARTRATE 10 MG TABLET PO PRN (21:30)
[2019-05-10] MEDS ORDERED: ATORVASTATIN 40 MG TABLET PO SCH (22:00)
[2019-05-10] MEDS ORDERED: INSULIN ASPART/LISPRO 100 UNIT/ML CARTRIDGE SQ PRN (22:00)
[2019-05-10] MEDS ORDERED: BLOOD SUGAR DIAGNOSTIC 1 EACH STRIP IN SCH (22:00)
[2019-05-10] MEDS ORDERED: DEXTROSE 50%-WATER 50 ML DISP.SYRIN IV PRN (22:00)
[2019-05-10] MEDS ORDERED: *INSULIN ASPART NOVOLOG 100 UNIT/ML CARTRIDGE SQ PRN (22:00)
--- NOTE | 2019-05-10 22:20 | NUR ---
RN NOTES, CALLED [facility] AGA[facility] FOR NEW ORDERS, AND DR DE LA O DIRECTOR OF MARKETING, WITH NEW ORDERS FOR INSULIN PER SLIDING SCALE COVERAGE TO COVER BLOOD SUGAR LEVEL AT THIS TIME, AND CONTINUE HOME MEDICATIONS LIPITOR SCHEDULED AT HOME AND JULISSAIEN RAULN, WELL PT/OT IN THE MORNING, AND FOLLOW UP WITH DR KEBEDE IN THE MORNING. NOTED AND CARRIED OUT.
[2019-05-10] MEDS ORDERED: INSULIN LISPRO/ASPART 100 UNIT/ML CARTRIDGE SQ ONE ×2 (23:00→23:10)
[2019-05-10] MEDS ORDERED: INSULIN REGULAR, HUMAN 100 UNIT/ML 10 ML VIAL SQ SCH (23:30)
--- NOTE | 2019-05-10 23:40 | NUR ---
RN NOTE: CHECKED PATIENT'S BS = 110. NO LANTUS ADMINISTERED DUE TO PATIENT IS NPO EXCEPT MEDS. NO HUMULIN R GIVEN PER SLIDING SCALE. Addendum: 05/10/19 at 2346 by URIAH CAVAZOS RN WRONG ENTRY
[2019-05-10] MEDS: *INSULIN REGULAR(HUMULIN R)HUM 100 UNIT/ML VIAL SQ PRN (23:58)
[2019-05-11] VITALS: BP 127/55
[2019-05-11] MEDS ORDERED: DEXTROSE 50%-WATER 50 ML DISP.SYRIN IV PRN
[2019-05-11] MEDS ORDERED: INSULIN REGULAR, HUMAN 100 UNIT/ML 3 ML VIAL SQ PRN
[2019-05-11 04:00] VITALS: BP 150/50
--- NOTE | 2019-05-11 06:54 | NUR ---
RN CLOSING NOTE: PATIENT IN BED, ASLEEP, BUT EASILY AWAKENED. NO SOB. NO C/O PAIN. SAFETY PRECAUTIONS IMPLEMENTED. BED LOCKED AND IN LOWEST POSITION. WILL ENDORSE TO NEXT SHIFT NURSE FOR CONTINUITY OF CARE.
[2019-05-11 08:00] VITALS: BP 125/63
[2019-05-11] MEDS: BLOOD SUGAR DIAGNOSTIC 1 EACH STRIP VI SCH ×2 (08:25)
[2019-05-11] MEDS ORDERED: clonazePAM 0.5 MG TABLET PO PRN (08:30)
[2019-05-11] MEDS ORDERED: PANTOPRAZOLE 40 MG TABLET.DR PO SCH (08:30)
[2019-05-11] MEDS ORDERED: CALCIUM ACETATE 667 MG TABLET PO SCH (08:30)
[2019-05-11] MEDS ORDERED: ONDANSETRON 4 MG TAB.RAPDIS PO PRN (08:30)
[2019-05-11] MEDS: *INSULIN REGULAR(HUMULIN R)HUM 100 UNIT/ML VIAL SQ PRN (08:30)
[2019-05-11] MEDS ORDERED: ZOLPIDEM TARTRATE 10 MG TABLET PO PRN (08:30)
[2019-05-11] MEDS ORDERED: SUCRALFATE 1 G TABLET PO SCH (09:00)
[2019-05-11] MEDS ORDERED: ALFUZOSIN HCL 10 MG PO SCH (09:00)
[2019-05-11] MEDS ORDERED: MEMANTINE HCL 5 MG TABLET PO SCH ×2 (09:00→17:00)
[2019-05-11] MEDS ORDERED: DIVALPROEX SODIUM 125 MG CAP.SPRINK PO SCH (09:00)
[2019-05-11] MEDS ORDERED: METOCLOPRAMIDE HCL 10 MG TABLET PO SCH (09:00)
[2019-05-11] MEDS ORDERED: INSULIN NPH/REG 70/30 MIX INJ 100 UNIT/ML VIAL SQ SCH ×2 (09:00)
[2019-05-11] MEDS ORDERED: CARVEDILOL 25 MG TABLET PO SCH (09:00)
[2019-05-11] MEDS ORDERED: METOLAZONE 2.5 MG TABLET PO SCH (09:00)
[2019-05-11] MEDS ORDERED: IRBESARTAN (150MG) 150 MG TABLET PO SCH ×2 (09:00)
[2019-05-11] MEDS ORDERED: BLOOD SUGAR DIAGNOSTIC 1 EACH STRIP IN SCH (09:00)
[2019-05-11] MEDS ORDERED: CHOLECALCIFEROL 1,000 UNIT TABLET (VIT D3) PO SCH ×2 (09:00)
[2019-05-11] MEDS ORDERED: CARVEDILOL 12.5 MG TABLET PO SCH (09:00)
[2019-05-11] MEDS ORDERED: ASPIRIN EC 81 MG TABLET.DR PO SCH (09:00)
[2019-05-11] MEDS ORDERED: FUROSEMIDE 80 MG TABLET PO SCH (09:00)
[2019-05-11] MEDS ORDERED: Medication Not On Formulary EA (Olmesartan/Hydrochlorothiazide (Benicar Hct 40-25 Mg Tab PO SCH (09:00)
[2019-05-11 11:02] VITALS: BP 131/59
--- NOTE | 2019-05-11 12:00 | NUR ---
PT LEFT THE UNIT AMA. BENEFITS AND RISKS WERE EXPLAINED TO THE PATIENT AND HIS . EXIT CARE INFORMATION WAS PROVIDED. INFLUENZA VACCINE WAS NOT ADMINISTERED BECAUSE PT STATES HE HAS A COUGH AND WANTS TO WAIT UNTIL IT SUBSIDES AND WILL RECEIVE ELSEWHERE. IV SITE WAS REMOVED, BELONGINGS LIST WAS CHECKED OFF.
[2019-05-11] MEDS ORDERED: ATORVASTATIN 40 MG TABLET PO SCH (22:00)
[2019-05-11] MEDS ORDERED: INSULIN GLARGINE, 100 UNIT/ML CARTRIDGE SQ SCH (22:00)
== END 2019-05-11 11:55 | disposition left against medical advice (07) | DRG 682 ==
LOC: ER 14:00 → TELE1 15:57 → MEDSG1 05-11 11:03
PROVIDERS: ADMIT Internal Medicine; ATTEND Internal Medicine
DX: I12.0 Hypertensive chronic kidney disease with stage 5 chronic kidney disease or end stage renal disease (principal); N18.6 End stage renal disease; G93.41 Metabolic encephalopathy; J06.9 Acute upper respiratory infection, unspecified; F03.90 Unspecified dementia, unspecified severity, without behavioral disturbance, psychotic disturbance, mood disturbance, and anxiety; E11.22 Type 2 diabetes mellitus with diabetic chronic kidney disease; I48.91 Unspecified atrial fibrillation; Z99.2 Dependence on renal dialysis; E11.65 Type 2 diabetes mellitus with hyperglycemia; Z79.4 Long term (current) use of insulin; I25.10 Atherosclerotic heart disease of native coronary artery without angina pectoris; Z90.79 Acquired absence of other genital organ(s); Z79.82 Long term (current) use of aspirin; Z79.899 Other long term (current) drug therapy; D63.1 Anemia in chronic kidney disease; E11.51 Type 2 diabetes mellitus with diabetic peripheral angiopathy without gangrene; F39 Unspecified mood [affective] disorder; F09 Unspecified mental disorder due to known physiological condition; D72.829 Elevated white blood cell count, unspecified; Q78.9 Osteochondrodysplasia, unspecified; W18.30XA Fall on same level, unspecified, initial encounter; Y92.003 Bedroom of unspecified non-institutional (private) residence as the place of occurrence of the external cause
CPT/HCPCS: 36415; 71045-TC; 80048-TC; 80076-TC; 82140-TC; 82962-TC; 83605-TC; 83880; 84484-TC; 85025-TC; 85730-TC; 87040-TC; 87081-TC; 97116-TC; 97530-TC; G0378; J1815; J1956; J8597; Q0162

== ENCOUNTER 2019-07-25 09:50 | Outpatient (CLI) | payer MEDICARE, MEDICAID ==
[~2019-07-25 09:50] MED LIST changes: +CLON0.5T4 PO; -DEXT1CAP3 PO; +IRBE150T28 PO; +METO-295 PO
== END 2019-07-25 23:59 | disposition home or self-care (01) ==
LOC: WOU 09:50
PROVIDERS: ATTEND Podiatrist Foot & Ankle Surgery
DX: Z09 Encounter for follow-up examination after completed treatment for conditions other than malignant neoplasm (principal); Z86.31 Personal history of diabetic foot ulcer; E11.42 Type 2 diabetes mellitus with diabetic polyneuropathy; L84 Corns and callosities; L60.3 Nail dystrophy; Z89.411 Acquired absence of right great toe
CPT/HCPCS: G0463

== ENCOUNTER 2019-10-17 09:52 | Outpatient (CLI) | payer MEDICARE, MEDICAID ==
[~2019-10-17 09:52] MED LIST changes: +ONDA-97 PO; -ONDA4TAB10 PO
== END 2019-10-17 23:59 | disposition home or self-care (01) ==
LOC: WOU 09:52
PROVIDERS: ATTEND Surgery
DX: L89.313 Pressure ulcer of right buttock, stage 3 (principal); E11.22 Type 2 diabetes mellitus with diabetic chronic kidney disease; I12.0 Hypertensive chronic kidney disease with stage 5 chronic kidney disease or end stage renal disease; N18.6 End stage renal disease; Z99.2 Dependence on renal dialysis; Z87.891 Personal history of nicotine dependence; E66.9 Obesity, unspecified; Z68.41 Body mass index [BMI] 40.0-44.9, adult; E78.5 Hyperlipidemia, unspecified; Z79.82 Long term (current) use of aspirin
CPT/HCPCS: G0463

== ENCOUNTER 2019-10-24 09:45 | Outpatient (CLI) | payer MEDICARE, MEDICAID | END 2019-10-24 23:59 | disposition home or self-care (01) | LOC: WOU 09:45 | PROVIDERS: ATTEND Podiatrist Foot & Ankle Surgery | DX: L60.3 Nail dystrophy (principal); E11.42 Type 2 diabetes mellitus with diabetic polyneuropathy; E11.22 Type 2 diabetes mellitus with diabetic chronic kidney disease; E11.51 Type 2 diabetes mellitus with diabetic peripheral angiopathy without gangrene; I12.0 Hypertensive chronic kidney disease with stage 5 chronic kidney disease or end stage renal disease; N18.6 End stage renal disease; Z99.2 Dependence on renal dialysis; L84 Corns and callosities; Z89.411 Acquired absence of right great toe | CPT/HCPCS: G0463 ==

== ENCOUNTER 2020-01-09 08:30 | Outpatient (CLI) | payer MEDICARE, MEDICAID | END 2020-01-09 23:59 | disposition home or self-care (01) | LOC: WOU 08:30 | PROVIDERS: ATTEND Podiatrist Foot & Ankle Surgery | DX: Z09 Encounter for follow-up examination after completed treatment for conditions other than malignant neoplasm (principal); E11.42 Type 2 diabetes mellitus with diabetic polyneuropathy; E11.22 Type 2 diabetes mellitus with diabetic chronic kidney disease; I12.0 Hypertensive chronic kidney disease with stage 5 chronic kidney disease or end stage renal disease; N18.6 End stage renal disease; Z99.2 Dependence on renal dialysis; L84 Corns and callosities; L60.3 Nail dystrophy; E66.09 Other obesity due to excess calories; Z68.41 Body mass index [BMI] 40.0-44.9, adult; R26.2 Difficulty in walking, not elsewhere classified; M62.50 Muscle wasting and atrophy, not elsewhere classified, unspecified site; Z79.82 Long term (current) use of aspirin | CPT/HCPCS: G0463 ==

== ENCOUNTER 2020-03-12 08:29 | Outpatient (CLI) | payer MEDICARE, MEDICAID | END 2020-03-12 23:59 | disposition home health service (06) | LOC: WOU 08:29 | PROVIDERS: ATTEND Podiatrist Foot & Ankle Surgery | DX: L84 Corns and callosities (principal); L60.3 Nail dystrophy; E11.42 Type 2 diabetes mellitus with diabetic polyneuropathy; E66.09 Other obesity due to excess calories; Z68.41 Body mass index [BMI] 40.0-44.9, adult; Z89.411 Acquired absence of right great toe; Z79.82 Long term (current) use of aspirin | CPT/HCPCS: G0463 ==

== ENCOUNTER 2020-03-14 08:30 | Outpatient (CLI) | payer MEDICARE, MEDICAID ==
[2020-03-14] MEDS ORDERED: Z GUARD REMEDY 2 OZ OINT TP ONE (08:41)
== END 2020-03-14 23:59 | disposition home health service (06) ==
LOC: WOU 08:30
PROVIDERS: ATTEND Specialist
DX: L89.322 Pressure ulcer of left buttock, stage 2 (principal); L89.312 Pressure ulcer of right buttock, stage 2; E11.42 Type 2 diabetes mellitus with diabetic polyneuropathy; E11.22 Type 2 diabetes mellitus with diabetic chronic kidney disease; I12.0 Hypertensive chronic kidney disease with stage 5 chronic kidney disease or end stage renal disease; N18.6 End stage renal disease; Z99.2 Dependence on renal dialysis; Z87.891 Personal history of nicotine dependence; L60.3 Nail dystrophy; L84 Corns and callosities; Z89.411 Acquired absence of right great toe; Z79.82 Long term (current) use of aspirin
CPT/HCPCS: G0463

== ENCOUNTER 2020-03-28 08:15 | Outpatient (CLI) | payer MEDICARE, MEDICAID ==
[~2020-03-28 08:15] MED LIST changes: -ASPI-1152 PO; +ASPI-1420 PO
== END 2020-03-28 23:59 | disposition home health service (06) ==
LOC: WOU 08:15
PROVIDERS: ATTEND Specialist
DX: L89.322 Pressure ulcer of left buttock, stage 2 (principal); L89.312 Pressure ulcer of right buttock, stage 2; E11.22 Type 2 diabetes mellitus with diabetic chronic kidney disease; E11.42 Type 2 diabetes mellitus with diabetic polyneuropathy; N18.6 End stage renal disease; Z99.2 Dependence on renal dialysis; L84 Corns and callosities; L60.3 Nail dystrophy; Z89.411 Acquired absence of right great toe; Z79.82 Long term (current) use of aspirin
CPT/HCPCS: G0463

== ENCOUNTER 2020-04-11 08:15 | Outpatient (CLI) | payer MEDICARE, MEDICAID | END 2020-04-11 23:59 | disposition home health service (06) | LOC: WOU 08:15 | PROVIDERS: ATTEND Specialist | DX: E11.42 Type 2 diabetes mellitus with diabetic polyneuropathy (principal); I12.0 Hypertensive chronic kidney disease with stage 5 chronic kidney disease or end stage renal disease; E11.22 Type 2 diabetes mellitus with diabetic chronic kidney disease; N18.6 End stage renal disease; Z99.2 Dependence on renal dialysis; L60.3 Nail dystrophy; L84 Corns and callosities; Z89.411 Acquired absence of right great toe; E78.5 Hyperlipidemia, unspecified; Z79.82 Long term (current) use of aspirin | CPT/HCPCS: G0463 ==

== ENCOUNTER 2020-04-23 08:20 | Outpatient (CLI) | payer MEDICARE, MEDICAID ==
[2020-04-23] MEDS ORDERED: UREA 10% -AHA 4% CREAM 57 GM TUBE ONE (08:48)
== END 2020-04-23 23:59 | disposition home or self-care (01) ==
LOC: WOU 08:20
PROVIDERS: ATTEND Podiatrist Foot & Ankle Surgery
DX: E11.621 Type 2 diabetes mellitus with foot ulcer (principal); L97.512 Non-pressure chronic ulcer of other part of right foot with fat layer exposed; E11.42 Type 2 diabetes mellitus with diabetic polyneuropathy; E11.22 Type 2 diabetes mellitus with diabetic chronic kidney disease; I12.0 Hypertensive chronic kidney disease with stage 5 chronic kidney disease or end stage renal disease; N18.6 End stage renal disease; Z99.2 Dependence on renal dialysis; Z87.891 Personal history of nicotine dependence; Z89.411 Acquired absence of right great toe; Z79.82 Long term (current) use of aspirin
CPT/HCPCS: 11042

== ENCOUNTER 2020-04-30 08:20 | Outpatient (CLI) | payer MEDICARE, MEDICAID | END 2020-04-30 23:59 | disposition home health service (06) | LOC: WOU 08:20 | PROVIDERS: ATTEND Podiatrist Foot & Ankle Surgery | DX: E11.621 Type 2 diabetes mellitus with foot ulcer (principal); L97.518 Non-pressure chronic ulcer of other part of right foot with other specified severity; E11.42 Type 2 diabetes mellitus with diabetic polyneuropathy; E11.22 Type 2 diabetes mellitus with diabetic chronic kidney disease; I12.0 Hypertensive chronic kidney disease with stage 5 chronic kidney disease or end stage renal disease; N18.6 End stage renal disease; Z99.2 Dependence on renal dialysis; L84 Corns and callosities; L60.3 Nail dystrophy; Z79.82 Long term (current) use of aspirin; Z89.411 Acquired absence of right great toe | CPT/HCPCS: G0463 ==

== ENCOUNTER 2020-05-21 08:19 | Outpatient (CLI) | payer MEDICARE, MEDICAID ==
[2020-05-21] MEDS ORDERED: UREA 10% -AHA 4% CREAM 57 GM TUBE ONE (08:50)
== END 2020-05-21 23:59 | disposition home health service (06) ==
LOC: WOU 08:19
PROVIDERS: ATTEND Podiatrist Foot & Ankle Surgery
DX: E11.42 Type 2 diabetes mellitus with diabetic polyneuropathy (principal); E11.22 Type 2 diabetes mellitus with diabetic chronic kidney disease; I12.0 Hypertensive chronic kidney disease with stage 5 chronic kidney disease or end stage renal disease; N18.6 End stage renal disease; Z99.2 Dependence on renal dialysis; L84 Corns and callosities; L60.3 Nail dystrophy; Z89.411 Acquired absence of right great toe
CPT/HCPCS: G0463

== ENCOUNTER 2020-07-23 08:30 | Outpatient (CLI) | payer MEDICARE, MEDICAID | END 2020-07-23 23:59 | disposition home health service (06) | LOC: WOU 08:30 | PROVIDERS: ATTEND Podiatrist Foot & Ankle Surgery | DX: L84 Corns and callosities (principal); B35.1 Tinea unguium; E11.42 Type 2 diabetes mellitus with diabetic polyneuropathy; E11.22 Type 2 diabetes mellitus with diabetic chronic kidney disease; I12.0 Hypertensive chronic kidney disease with stage 5 chronic kidney disease or end stage renal disease; N18.6 End stage renal disease; Z99.2 Dependence on renal dialysis; Z79.82 Long term (current) use of aspirin | CPT/HCPCS: G0463 ==

== ENCOUNTER 2020-08-21 11:11 | Inpatient (IN) | payer MEDICARE, OTHER ==
[~2020-08-21] VITALS: Ht 175.3 cm; Wt 108.9 kg
--- NOTE | 2020-08-21 12:11 | NUR ---
Patient ANNY from HD center, came in due to HD cath malfunction. On room air, breathing evenly and unlabored. Connected to the monitor and pulse ox. Kept comfortable, will continue to monitor accordingly.
--- NOTE | 2020-08-21 12:13 | NUR ---
IV access initiated on the RH, blood drawned and sent to lab
[2020-08-21 12:17] LABS: BASOPHILS # (AUTO) 0.2 /CMM (0.0-0.2); BASOPHILS % (AUTO) 1.6 % (0.0-2.0); EOSINOPHILS % (AUTO) 2.4 % (0.0-6.0); HEMATOCRIT 33 % (39-51); HEMOGLOBIN 10.6 g/dL (13.5-17.5); LYMPHOCYTES # (AUTO) 1.3 /CMM (0.8-4.8); LYMPHOCYTES % (AUTO) 9.3 % (20.0-44.0); MEAN CORPUSCULAR HGB CONC 32 g/dl (31.0-36.0); MEAN CORPUSCULAR VOLUME 89 fL (80-96); MONOCYTES # (AUTO) 1.1 /CMM (0.1-1.30); MONOCYTES % (AUTO) 7.4 % (2.0-12.0); NEUTROPHILS # (AUTO) 11.3 /CMM (1.8-8.9); NEUTROPHILS % (AUTO) 79.3 % (43.0-81.0); PLATELET COUNT (AUTO) 348 /CMM (150-450); RED BLOOD CELL COUNT(AUTO) 3.68 MIL/uL (4.5-6.0); WHITE BLOOD COUNT (AUTO) 14.2 K/uL (4.3-11.0)
[2020-08-21 12:24] LABS: CALCIUM, SERUM 9.3 mg/dL (8.5-10.1); CARBON DIOXIDE 26 mmol/L (21-32); CHLORIDE 103 mmol/L (98-107); GLUCOSE 135 mg/dL (74-106); POTASSIUM 4.7 mmol/L (3.5-5.1); SODIUM SERUM 140 mmol/L (136-145); UREA NITROGEN, BLOOD 71 mg/dL (7-18)
[2020-08-21] MEDS ORDERED: VIT1TABL44 PO (12:25)
[2020-08-21] MEDS ORDERED: DICL1PAT11 TP (12:25)
[2020-08-21] MEDS ORDERED: OMEP40CA13 PO (12:25)
[2020-08-21] MEDS ORDERED: HYDR-4384 PO (12:25)
[2020-08-21] MEDS ORDERED: PARI5VIA IVP (12:25)
[2020-08-21] MEDS ORDERED: LORA10TA7 PO (12:25)
[2020-08-21 12:27] LABS: CREATININE 9.9 mg/dL (0.6-1.3)
--- NOTE | 2020-08-21 13:07 | NUR ---
CALLED [facility] [phone] WILL BE PAGED. PER CHARLES
[2020-08-21] MEDS ORDERED: HYDROCODONE/APAP 5/325MG TABLET PO PRN (14:30)
[2020-08-21] MEDS ORDERED: ONDANSETRON HCL/PF 4 MG/2 ML VIAL IVP PRN (14:30)
[2020-08-21] MEDS ORDERED: Z GUARD REMEDY 2 OZ OINT TP PRN (14:30)
[2020-08-21] MEDS ORDERED: ACETAMINOPHEN 325 MG TABLET PO PRN (14:30)
[2020-08-21] MEDS ORDERED: ZOLPIDEM TARTRATE 5 MG TABLET PO PRN (14:30)
[2020-08-21] MEDS ORDERED: MAGNESIUM HYDROXIDE 30 ML UDC PO PRN (14:30)
[2020-08-21] MEDS ORDERED: PARICALCITOL IVP SCH (16:00)
[2020-08-21] MEDS ORDERED: clonazePAM 0.5 MG TABLET PO PRN (16:00)
--- NOTE | 2020-08-21 16:17 | NUR ---
COVID 19 NEGATIVE.
[2020-08-21] MEDS: MEMANTINE HCL 5 MG TABLET PO SCH (17:00)
[2020-08-21] MEDS: SUCRALFATE 1 G TABLET PO SCH (17:00)
[2020-08-21] MEDS: FUROSEMIDE 40 MG TABLET PO SCH (17:00)
[2020-08-21] MEDS ORDERED: DEXTROSE 50%-WATER 50 ML DISP.SYRIN IV PRN (17:30)
[2020-08-21] MEDS ORDERED: FUROSEMIDE 40 MG TABLET ONE (18:00)
[2020-08-21] MEDS: BLOOD SUGAR DIAGNOSTIC 1 EACH STRIP IN SCH ×2 (18:09→22:19)
[2020-08-21] MEDS: CALCIUM ACETATE 667 MG TABLET PO SCH (18:09)
--- NOTE | 2020-08-21 18:10 | NUR ---
blood sugar checked 121 no insulin given.
--- NOTE | 2020-08-21 18:35 | NUR ---
PT IS TO BE NPO AFTER MIDNIGHT
--- NOTE | 2020-08-21 19:27 | NUR ---
CONSENT PREPARED FOR DIALYSIS CATHERTER REPLACEMENT. FILED IN CHART
[2020-08-21] MEDS ORDERED: CARVEDILOL 12.5 MG TABLET ONE (21:15)
[2020-08-21] MEDS ORDERED: ATORVASTATIN 40 MG TABLET ONE (21:15)
[2020-08-21] MEDS ORDERED: DIVALPROEX SODIUM 125 MG CAP.SPRINK ONE (21:32)
[2020-08-21] MEDS: DIVALPROEX SODIUM 125 MG CAP.SPRINK PO SCH (21:49)
[2020-08-21] MEDS: CARVEDILOL 12.5 MG TABLET PO SCH (21:49)
[2020-08-21] MEDS ORDERED: INSULIN DEGLUDEC 50 UNIT SQ SCH (22:00)
[2020-08-21] MEDS: ATORVASTATIN 40 MG TABLET PO SCH (22:40)
[2020-08-21] MEDS: INSULIN GLARGINE, 100 UNIT/ML CARTRIDGE SQ SCH (22:41)
--- NOTE | 2020-08-22 05:21 | NUR ---
BED ASSIGNMENT 307-1
[2020-08-22 05:35] LABS: BASOPHILS % (AUTO) 0.3 % (0.0-2.0); EOSINOPHILS % (AUTO) 2.1 % (0.0-6.0); HEMATOCRIT 33 % (39-51); HEMOGLOBIN 10.4 g/dL (13.5-17.5); LYMPHOCYTES # (AUTO) 1.8 /CMM (0.8-4.8); LYMPHOCYTES % (AUTO) 11.8 % (20.0-44.0); MEAN CORPUSCULAR HGB CONC 31 g/dl (31.0-36.0); MEAN CORPUSCULAR VOLUME 89 fL (80-96); MONOCYTES # (AUTO) 1.5 /CMM (0.1-1.30); MONOCYTES % (AUTO) 9.3 % (2.0-12.0); NEUTROPHILS # (AUTO) 11.9 /CMM (1.8-8.9); NEUTROPHILS % (AUTO) 76.5 % (43.0-81.0); PLATELET COUNT (AUTO) 374 /CMM (150-450); RED BLOOD CELL COUNT(AUTO) 3.73 MIL/uL (4.5-6.0); WHITE BLOOD COUNT (AUTO) 15.5 K/uL (4.3-11.0)
[2020-08-22 05:51] LABS: CALCIUM, SERUM 9.7 mg/dL (8.5-10.1); CARBON DIOXIDE 27 mmol/L (21-32); CHLORIDE 103 mmol/L (98-107); GLUCOSE 137 mg/dL (74-106); MAGNESIUM 2.2 mg/dL (1.8-2.4); PHOSPHORUS 5.8 mg/dL (2.5-4.9); POTASSIUM 5.8 mmol/L (3.5-5.1); SODIUM SERUM 140 mmol/L (136-145); UREA NITROGEN, BLOOD 75 mg/dL (7-18)
[2020-08-22 05:59] LABS: IRON, SERUM 41 ug/dl (50-175); TOTAL IRON BINDING CAPACITY 158 ug/dl (250-450)
[2020-08-22 06:00] LABS: CREATININE 10.5 mg/dL (0.6-1.3)
--- NOTE | 2020-08-22 06:23 | NUR ---
REPORT GIVEN TO GET GALLARDO FOR WENDI
[2020-08-22 06:30] LABS: CHOLESTEROL 130 mg/dL (<200); HDL CHOLESTEROL 41 mg/dL (40-60); LDL 50 mg/dL (0-99); TRIGLYCERIDES 227 mg/dL (30-150)
[2020-08-22 07:27] LABS: FERRITIN 1120 ng/mL (8-388)
[2020-08-22] MEDS: BLOOD SUGAR DIAGNOSTIC 1 EACH STRIP IN SCH ×4 (07:30→21:25)
[2020-08-22 09:00] VITALS: BP 162/71
[2020-08-22] MEDS: LOSARTAN POTASSIUM 25 MG TABLET PO SCH (09:00)
[2020-08-22] MEDS: CARVEDILOL 12.5 MG TABLET PO SCH ×2 (09:00→21:25)
[2020-08-22] MEDS ORDERED: Liraglutide (Victoza 3-Pak) 1.8 MG SQ SCH (09:00)
[2020-08-22] MEDS ORDERED: ONDANSETRON HCL 8 MG PO SCH (09:00)
[2020-08-22] MEDS ORDERED: ALFUZOSIN HCL 10 MG PO SCH (09:00)
--- NOTE | 2020-08-22 09:34 | NUR ---
PATIENT TRANSFERRED TO FLOOR IN STABLE CONDITION.
[2020-08-22] MEDS: ASPIRIN EC 81 MG TABLET.DR PO SCH (10:19)
[2020-08-22] MEDS: CHOLECALCIFEROL 1,000 UNIT TABLET (VIT D3) PO SCH (10:19)
[2020-08-22] MEDS: VIT B CMPLX 3/FA/VIT C/BIOTIN 1 TAB TABLET PO SCH (10:19)
[2020-08-22] MEDS: PANTOPRAZOLE 40 MG TABLET.DR PO SCH (10:19)
[2020-08-22] MEDS: FUROSEMIDE 40 MG TABLET PO SCH ×2 (10:20→17:39)
[2020-08-22] MEDS: METOLAZONE 2.5 MG TABLET PO SCH (10:20)
[2020-08-22] MEDS: DIVALPROEX SODIUM 125 MG CAP.SPRINK PO SCH ×2 (10:21→21:25)
[2020-08-22] MEDS: MEMANTINE HCL 5 MG TABLET PO SCH ×2 (10:21→17:39)
[2020-08-22] MEDS: SUCRALFATE 1 G TABLET PO SCH ×3 (10:21→17:39)
[2020-08-22] MEDS: CALCIUM ACETATE 667 MG TABLET PO SCH ×3 (10:22→17:39)
[2020-08-22] MEDS: METOCLOPRAMIDE HCL 10 MG TABLET PO SCH (10:22)
[2020-08-22] MEDS: LORATADINE 10 MG TABLET PO SCH (10:35)
[2020-08-22] MEDS ORDERED: SODIUM POLYSTYRENE SULFONATE 15 G/60 ML BOTTLE PO ONE ×2 (13:00→14:30)
[2020-08-22 16:00] VITALS: BP 138/70
[2020-08-22] MEDS: INSULIN REGULAR, HUMAN 100 UNIT/ML 3 ML VIAL SQ PRN ×2 (17:51→22:07)
--- NOTE | 2020-08-22 18:49 | NUR ---
RN CLOSING NOTE PT CAME FROM HOME FOLLOWING A DIALYSIS CATHETER MALFUNCTION. PT ADMITTED FOR SURGERY FOR CORRECTION OF CATHETER. PT HAS HISTORY OF ESRD, DEMENTIA, HYPERTENSION, AND DIABETES. SURGICAL HISTORY OF PROSTATE REMOVAL, GREAT TOE REMOVAL, ANGIO AND RLE THROMBECTOMY. ALLERGIES TO ADHESIVE TAPE AND LATEX. A/OX3 AND COOPERATIVE. PT IS 93% O2 SAT ON ROOM AIR. PT BP OF 138/70, PULSE OF 90. PT HAD 2 BM TODAY. PT HAS GENERAL WEAKNESS AND IS ABLE TO MOVE WITH MINIMAL ASSISTANCE. SKIN IS INTACT AND DRY. PT IS ON RENAL DIET. IV FLUSH ON RIGHT FOREARM. PT IS RESTING IN BED WATCHING TV. BED IN LOWEST POSITION. 2 SIDE RAILS RAISED. CALL LIGHT WITHIN REACH.
--- NOTE | 2020-08-22 19:46 | NUR ---
MS RIAN INITIAL NOTES RECEIVED REPORT FROM AM NURSE SAUD AND SEEN PATIENT IN BED AWAKE AND ALERT ORIENTED , DANISH SPEAKING AND ALSO SOME VENEZUELAN. NOT IN ANY SIGNS OF ANY ACUTE DISTRESS NOTED. DENIES ANY PAIN WELL, HE'S TRYING TO CALL HIS AT THIS TIME. PATIENT HAS HEPLOCK ON HIS RIGHT HAND # 18 PATENT AND INTACT. AWARE HOW TO USE THE CALL LIGHT AND ENCOURAGE HIM TO USE IF HE NEEDS SOME HELP OR NEEDS THE NURSE. WILL CONTINUE MONITORING. PLACE CALL LIGHT AT REACH.
[2020-08-22 20:00] VITALS: BP_SYST 105; BP_SYST 120; BP_DIAS 58; BP_DIAS 66
[2020-08-22] MEDS: ATORVASTATIN 40 MG TABLET PO SCH (21:30)
--- NOTE | 2020-08-22 21:40 | NUR ---
ms dora notes notify Dr Edwards regarding patient lantus and insulin if its ok to give because patient NPO after MN for surgery in am.
--- NOTE | 2020-08-22 21:44 | NUR ---
ms dora notes Per Md ordered its ok to give Lantus 20 units only and give the insulin per sliding scale.
[2020-08-22] MEDS: INSULIN GLARGINE, 100 UNIT/ML CARTRIDGE SQ SCH (22:00)
[2020-08-23] VITALS: BP 121/43
[2020-08-23 04:00] VITALS: BP 126/59
[2020-08-23] MEDS: BLOOD SUGAR DIAGNOSTIC 1 EACH STRIP IN SCH ×4 (05:50→22:19)
[2020-08-23] MEDS: INSULIN REGULAR, HUMAN 100 UNIT/ML 3 ML VIAL SQ PRN ×4 (05:53→22:28)
--- NOTE | 2020-08-23 05:54 | NUR ---
ms damper fitter notes blood sugar 198, no insulin due at this time because pt NPO since 12 MN for surgery today. no signs of any distress or any hypo glycemia noted. Pt also signed the consent for surgery, anesthesia and blood transfusion if he need it. pt understood well. will continue monitoring.
--- NOTE | 2020-08-23 06:30 | NUR ---
MS RETAIL COORDINATOR CLOSING NOTES PT AWAKE AND ALERT , OR TECH CAME AND ABOUT TO MEDICAL TRANSCRIPTION EDITOR THE PATIENT FOR SURGERY. NO SIGNS OF ANY DISTRESS NOTED.ALL DUE MEDS GIVEN AND ALL NEEDS MET. ENDORSE TO AM NURSE FOR CONTINUITY OF CARE.
[2020-08-23] MEDS ORDERED: ANESTHESIA TRAY IN PYXIS 1 EA TRAY MC ONE (06:52)
[2020-08-23] MEDS ORDERED: LIDOCAINE HCL/MPF 1% 30 ML VIAL IJ ONE (06:52)
[2020-08-23] MEDS ORDERED: HEPARIN SODIUM, PORCINE 1,000 UNIT/ML VIAL ONE (06:53)
[2020-08-23] MEDS ORDERED: IOHEXOL 240MG/ML 50 ML IV ONE (06:53)
--- NOTE | 2020-08-23 08:39 | NUR ---
PT CAME BACK FROM [facility] S/P REPLACEMENT OF TUNNEL DIALYSIS CATHETER ON LEFT GROIN BY DR FLOWERS WITH STABLE V/S. BP `160/72 HR 73 RR 18 T 97.8 O2 SAT 99% WITH O2 AT 2LITERS VIA NC. OFFERED BREAKFAST WITH MINIMAL ASSISTANCE.
[2020-08-23 09:00] VITALS: BP 160/72
--- NOTE | 2020-08-23 09:00 | NUR ---
RN OPENING NOTE RECEIVED PATIENT FROM OR FOLLOWING SURGERY FOR REPLACEMENT OF TUNNEL DIALYSIS CATHETER IN THE LEFT GROIN. PT IS A/O X 3 AND CALM DEMEANOR. PT IS CURRENTLY 96% O2 ON RA WITH A RR OF 12. PT VITALS ARE 160/72 WITH PULSE OF 96. PT HAS A TEAR IN THE RIGHT EAR. PT HAS GENERALIZED WEAKNESS. PT IS ON RENAL DIET. PT IS ABLE TO EAT WITH MINIMAL ASSISTANCE. PT HAS 18G IVF ON THE R HAND. MEDS GIVEN. PT IS AWAKE, RESTING IN BED AND WATCHING TV. BED IN LOWEST POSITION. 2 SIDE RAILS RAISED. CALL LIGHT WITHIN REACH. WILL CONTINUE TO MONITOR.
[2020-08-23] MEDS: LORATADINE 10 MG TABLET PO SCH (09:41)
[2020-08-23] MEDS: METOCLOPRAMIDE HCL 10 MG TABLET PO SCH (09:41)
[2020-08-23] MEDS: CHOLECALCIFEROL 1,000 UNIT TABLET (VIT D3) PO SCH (09:41)
[2020-08-23] MEDS: METOLAZONE 2.5 MG TABLET PO SCH (09:42)
[2020-08-23] MEDS: ASPIRIN EC 81 MG TABLET.DR PO SCH (09:42)
[2020-08-23] MEDS: FUROSEMIDE 40 MG TABLET PO SCH ×2 (09:42→18:26)
[2020-08-23] MEDS: SUCRALFATE 1 G TABLET PO SCH ×3 (09:42→18:26)
[2020-08-23] MEDS: MEMANTINE HCL 5 MG TABLET PO SCH ×2 (09:42→18:26)
[2020-08-23] MEDS: VIT B CMPLX 3/FA/VIT C/BIOTIN 1 TAB TABLET PO SCH (09:42)
[2020-08-23] MEDS: DIVALPROEX SODIUM 125 MG CAP.SPRINK PO SCH ×2 (09:43→22:18)
[2020-08-23] MEDS: CALCIUM ACETATE 667 MG TABLET PO SCH ×3 (09:47→18:26)
[2020-08-23] MEDS: PANTOPRAZOLE 40 MG TABLET.DR PO SCH (09:47)
[2020-08-23] MEDS: CARVEDILOL 12.5 MG TABLET PO SCH ×2 (09:49→22:18)
[2020-08-23] MEDS: LOSARTAN POTASSIUM 25 MG TABLET PO SCH (09:49)
--- NOTE | 2020-08-23 11:00 | NUR ---
CALLED PT'S ,CHRISTOPHER TO BRING PT'S HOME MEDS BUT PT WILL BE DISCHARGE TODAY TO PT'S DECIDED NOT TO BRING PT'S HOME MEDS:ALFUZOSIN VICTOZA AND ZECHRISS.
[2020-08-23 12:00] VITALS: BP 150/52
--- NOTE | 2020-08-23 17:00 | NUR ---
CALLED PT'S ,CHRISTOPHER AND UPDATED ON PT'S DISCHARGE HOME TOMORROW AT 12:30 PM PUZZLE ASSEMBLER TIME BY THE AMBULANCE.
--- NOTE | 2020-08-23 18:00 | NUR ---
HEMODIALYSIS DONE WITH 1 LITER OUTPUT.PT HAS STABLE V/S.
--- NOTE | 2020-08-23 19:30 | NUR ---
RN CLOSING NOTE PT IS SLEEPING IN BED. PT IS A/O X3, BRITISH AND CENTRAL AFRICAN SPEAKING. PT HAS HX OF DEMENTIA. PT IS CURRENTLY ON 2 L O2 VIA NC WITH NO SIGNS OF RESPIRATORY DISTRESS. PT IS ON BEDREST. ONE SKIN TEAR FROM OR ON THE LEFT EAR. PT IS ON RENAL SPECIFIC DIET. BED IN LOWEST POSITION. CALL LIGHT WITHIN REACH. 2 SIDE RAILS RAISED.
--- NOTE | 2020-08-23 20:00 | NUR ---
MS RIAN INITIAL NOTES RECEIVED REPORT FROM AM NURSE SAUD AND SEEN PT IN BED RESTING WITH EYES CLOSED BUT AROUSE EASILY. NOT IN ANY DISTRESS NOTED. DENIES ANY PAIN. KEPT HIM WARM AND COMFORTABLE AT ALL TIMES. PLACE CALL LIGHT AT REACH. WILL CONTINUE MONITORING.
--- NOTE | 2020-08-23 22:00 | NUR ---
MS RIAN NOTES ROUTINE MEDS GIVEN AND BLOOD SUGAR CHECKED 276, LANTUS GIVEN 15 UNITS SURAJ SQ ORDERED. WILL CONTINUE MONITORING.
[2020-08-23] MEDS: ATORVASTATIN 40 MG TABLET PO SCH (22:18)
[2020-08-23] MEDS: INSULIN GLARGINE, 100 UNIT/ML CARTRIDGE SQ SCH (22:24)
[2020-08-24] MEDS: BLOOD SUGAR DIAGNOSTIC 1 EACH STRIP IN SCH (07:01)
[2020-08-24] MEDS: INSULIN REGULAR, HUMAN 100 UNIT/ML 3 ML VIAL SQ PRN (07:03)
--- NOTE | 2020-08-24 07:32 | NUR ---
ms dicer machine operator closing notes pt stable blanca the night and slept well no signs of any distress noted the whole shift. all due meds given and all needs met. blood sugar 317, 8 units of insulin given as ordered. endorse to am nurse.
[2020-08-24 08:00] VITALS: BP 99/52
--- NOTE | 2020-08-24 08:00 | NUR ---
MS RN OPENING NOTE PT IS A/O X 3 AND CALM DEMEANOR. PT IS CURRENTLY 96% O2 ON RA WITH A RR OF 12. PT VITALS ARE 160/72 WITH PULSE OF 96. PT HAS A TEAR IN THE RIGHT EAR. PT HAS GENERALIZED WEAKNESS. PT IS ON RENAL DIET. PT IS ABLE TO EAT WITH MINIMAL ASSISTANCE. PT HAS 18G IVF ON THE R HAND. MEDS GIVEN. PT IS AWAKE, RESTING IN BED AND WATCHING TV. BED IN LOWEST POSITION. 2 SIDE RAILS RAISED. CALL LIGHT WITHIN REACH. WILL CONTINUE TO MONITOR.
[2020-08-24] MEDS: CALCIUM ACETATE 667 MG TABLET PO SCH (08:23)
[2020-08-24] MEDS: ASPIRIN EC 81 MG TABLET.DR PO SCH (08:23)
[2020-08-24] MEDS: DIVALPROEX SODIUM 125 MG CAP.SPRINK PO SCH (08:27)
[2020-08-24] MEDS: LORATADINE 10 MG TABLET PO SCH (08:27)
[2020-08-24] MEDS: METOLAZONE 2.5 MG TABLET PO SCH (08:28)
[2020-08-24] MEDS: MEMANTINE HCL 5 MG TABLET PO SCH (08:29)
[2020-08-24] MEDS: FUROSEMIDE 40 MG TABLET PO SCH (08:29)
[2020-08-24] MEDS: METOCLOPRAMIDE HCL 10 MG TABLET PO SCH (08:30)
[2020-08-24] MEDS: CHOLECALCIFEROL 1,000 UNIT TABLET (VIT D3) PO SCH (08:30)
[2020-08-24] MEDS: VIT B CMPLX 3/FA/VIT C/BIOTIN 1 TAB TABLET PO SCH (08:33)
[2020-08-24] MEDS: CARVEDILOL 12.5 MG TABLET PO SCH (08:34)
[2020-08-24] MEDS: SUCRALFATE 1 G TABLET PO SCH (08:34)
[2020-08-24 08:35] VITALS: BP 99/52
[2020-08-24] MEDS: LOSARTAN POTASSIUM 25 MG TABLET PO SCH (08:35)
[2020-08-24] MEDS: PANTOPRAZOLE 40 MG TABLET.DR PO SCH (08:46)
--- NOTE | 2020-08-24 13:15 | NUR ---
DISCHARGED PT HOME WITH STABLE V/S VIA AMBULANCE ON A BARIATRIC GURNEY.REMOVED RT HAND HEPLOCK WITH NO BLEEDING OR SWELLING ON THE SITE.NOTIFIED PT'S ,CHRISTOPHER UPON THE PREVENTATIVE MAINTENANCE TECHNICIAN TIME OF THE AMBULANCE.
== END 2020-08-24 13:15 | disposition home or self-care (01) | DRG 698 ==
LOC: ER 11:11 → TRANSITION 14:25 → MED 08-22 05:22
PROVIDERS: ADMIT Internal Medicine; ATTEND Nurse Practitioner Acute Care
PROC: 0J2WXYZ Change Other Device in Lower Extremity Subcutaneous Tissue and Fascia, External Approach (ICD-10-PCS; principal; 2020-08-23)
PROC: 5A1D70Z Performance of Urinary Filtration, Intermittent, Less than 6 Hours Per Day (ICD-10-PCS; 2020-08-23)
DX: T82.41XA Breakdown (mechanical) of vascular dialysis catheter, initial encounter (principal); N18.6 End stage renal disease; I12.0 Hypertensive chronic kidney disease with stage 5 chronic kidney disease or end stage renal disease; G93.49 Other encephalopathy; Y92.89 Other specified places as the place of occurrence of the external cause; Y71.2 Prosthetic and other implants, materials and accessory cardiovascular devices associated with adverse incidents; I25.10 Atherosclerotic heart disease of native coronary artery without angina pectoris; F03.90 Unspecified dementia, unspecified severity, without behavioral disturbance, psychotic disturbance, mood disturbance, and anxiety; E11.22 Type 2 diabetes mellitus with diabetic chronic kidney disease; E11.51 Type 2 diabetes mellitus with diabetic peripheral angiopathy without gangrene; Z91.040 Latex allergy status; Z91.048 Other nonmedicinal substance allergy status; Z79.82 Long term (current) use of aspirin; Z79.4 Long term (current) use of insulin; Z79.899 Other long term (current) drug therapy; E78.5 Hyperlipidemia, unspecified; D72.829 Elevated white blood cell count, unspecified; D63.1 Anemia in chronic kidney disease; E87.5 Hyperkalemia; F39 Unspecified mood [affective] disorder; Z82.49 Family history of ischemic heart disease and other diseases of the circulatory system; Z99.2 Dependence on renal dialysis; I48.91 Unspecified atrial fibrillation; N25.0 Renal osteodystrophy
CPT/HCPCS: 36415; 71045-TC; 73552; 80048-TC; 80061-TC; 82728-TC; 82962-TC; 83540-TC; 83735-TC; 84100-TC; 85025-TC; 85730-TC; 86706; 87081-TC; 87340; 90935-TC; C1750; C1769; G0378; J0690; J1644; J1815; J3490; J8597; Q9966; U0003

== ENCOUNTER 2020-10-22 08:20 | Outpatient (CLI) | payer MEDICARE, OTHER ==
[~2020-10-22 08:20] MED LIST changes: +DICL1PAT13 TP; -ESOM40CA PO; +HYDR-4384 PO; +LORA10TA7 PO; -OLME1TAB22 PO; +OMEP40CA13 PO; +PARI5VIA IVP; +VIT1TABL44 PO
[2020-10-22] MEDS ORDERED: UREA 10% -AHA 4% CREAM 57 GM TUBE ONE (08:34)
== END 2020-10-22 23:59 | disposition home health service (06) ==
LOC: WOU 08:20
PROVIDERS: ATTEND Podiatrist Foot & Ankle Surgery
DX: L84 Corns and callosities (principal); L60.3 Nail dystrophy; E11.42 Type 2 diabetes mellitus with diabetic polyneuropathy; E11.22 Type 2 diabetes mellitus with diabetic chronic kidney disease; I13.11 Hypertensive heart and chronic kidney disease without heart failure, with stage 5 chronic kidney disease, or end stage renal disease; N18.6 End stage renal disease; Z99.2 Dependence on renal dialysis; Z89.411 Acquired absence of right great toe
CPT/HCPCS: G0463

== ENCOUNTER 2020-12-24 08:15 | Outpatient (CLI) | payer MEDICARE, OTHER | END 2020-12-24 23:59 | disposition home health service (06) | LOC: WOU 08:15 | PROVIDERS: ATTEND Podiatrist Foot & Ankle Surgery | DX: L84 Corns and callosities (principal); E11.22 Type 2 diabetes mellitus with diabetic chronic kidney disease; E11.42 Type 2 diabetes mellitus with diabetic polyneuropathy; I12.0 Hypertensive chronic kidney disease with stage 5 chronic kidney disease or end stage renal disease; N18.6 End stage renal disease; Z99.2 Dependence on renal dialysis; L60.3 Nail dystrophy; Z89.411 Acquired absence of right great toe | CPT/HCPCS: G0463 ==

== ENCOUNTER 2023-07-14 07:27 | Inpatient (IN) | payer MEDICARE, OTHER ==
[~2023-07-14] VITALS: Ht 162.6 cm; Wt 106.7 kg
[~2023-07-14 07:27] MED LIST changes: +DICL1PAT11 TP; -DICL1PAT13 TP; -OMEP40CA13 PO; +OMEP40CA21 PO
[2023-07-14] MEDS ORDERED: ACETAMINOPHEN ES 500 MG TABLET PO ONE (08:00)
[2023-07-14] MEDS ORDERED: CEFEPIME 2 GM in IV D5W 50 ML IV ONE (08:00)
[2023-07-14] MEDS ORDERED: VANCOMYCIN 1 GM in IV D5W 250 ML IV ONE (08:00)
[2023-07-14] MEDS ORDERED: ACETAMINOPHEN ES 500 MG TABLET ONE (08:14)
[2023-07-14 08:31] LABS: BASOPHILS # (AUTO) 0.1 K/uL (0.0-0.2); BASOPHILS % (AUTO) 0.2 % (0.0-2.0); HEMATOCRIT 41 % (39-51); HEMOGLOBIN 12.5 g/dL (13.5-17.5); MEAN CORPUSCULAR HEMOGLOBIN 27 PG (26.0-33.0); MEAN CORPUSCULAR HGB CONC 30 g/dl (31.0-36.0); MEAN CORPUSCULAR VOLUME 88 fL (80-96); MONOCYTES # (AUTO) 3.2 K/uL (0.1-1.30); MONOCYTES % (AUTO) 6.6 % (2.0-12.0); NEUTROPHILS # (AUTO) 43.7 K/uL (1.8-8.9); NEUTROPHILS % (AUTO) 91.2 % (43.0-81.0); PLATELET COUNT (AUTO) 233 K/uL (150-450); RED BLOOD CELL COUNT(AUTO) 4.65 MIL/uL (4.5-6.0); RED CELL DISTRIBUTION WIDTH 17.3 % (11.5-15.0)
[2023-07-14 08:34] LABS: WHITE BLOOD COUNT (AUTO) 47.9 K/uL (4.3-11.0)
[2023-07-14 08:41] LABS: CALCIUM, SERUM 8.9 mg/dL (8.5-10.1); CARBON DIOXIDE 22 mmol/L (21-32); CHLORIDE 105 mmol/L (98-107); GLUCOSE 166 mg/dL (74-106); POTASSIUM 5.8 mmol/L (3.5-5.1); SODIUM SERUM 139 mmol/L (136-145); UREA NITROGEN, BLOOD 51 mg/dL (7-18)
[2023-07-14 08:47] LABS: ALANINE AMINOTRANSFERASE 11 U/L (12-78); ALBUMIN 2.5 g/dL (3.4-5.0); ALKALINE PHOSPHATASE 100 U/L (46-116); ASPARTATE AMINOTRANSFERASE 8 U/L (15-37); BILIRUBIN,DIRECT 0.2 mg/dL (0.0-0.2); BILIRUBIN,TOTAL 0.4 mg/dL (0.2-1.0); TOTAL PROTEIN, SERUM 6.5 g/dL (6.4-8.2)
[2023-07-14 08:48] LABS: CREATININE 8.2 mg/dL (0.6-1.3)
[2023-07-14 08:54] LABS: INR 1.43 (0.91-1.10); PARTIAL THROMBOPLASTIN TIME 58.4 SEC (24.3-34.3); PROTHROMBIN TIME 14.8 SECS (9.2-11.1)
[2023-07-14] MEDS ORDERED: APIX2.5T PO (10:16)
[2023-07-14] MEDS ORDERED: LIRA0.6P SQ (10:16)
[2023-07-14] MEDS ORDERED: PATI16.8 PO (10:16)
[2023-07-14] MEDS ORDERED: AZEL6DRO5 EACHEYE (10:16)
[2023-07-14] MEDS ORDERED: INSU100I4 SQ (10:16)
[2023-07-14] MEDS ORDERED: IRBE300T19 PO (10:16)
[2023-07-14] MEDS ORDERED: AZEL137S7 BNOSTRILS (10:16)
[2023-07-14] MEDS ORDERED: FOLI0.8T23 PO (10:16)
[2023-07-14] MEDS ORDERED: BLOO-668 IN (10:16)
[2023-07-14] MEDS ORDERED: NYST15CR2 TP (10:16)
[2023-07-14 11:29] LABS: ANISOCYTOSIS 1+; BAND % (MANUAL) 4 % (0.0-5.0); BASOPHILS % (MANUAL) 0 % (0.0-2.0); EOSINOPHILS % (MANUAL) 0 % (0-4); LYMPHOCYTES % (MANUAL) 6 % (16-48); MONOCYTES % (MANUAL) 5 % (0-11.0); NEUTROPHILS % (MANUAL) 85 (42-76); OVALOCYTES 1+; PLATELET ESTIMATE ADEQUATE
[2023-07-14 16:00] VITALS: BP 108/64; TEMP 100; O2SAT 98
[2023-07-14] MEDS ORDERED: Z GUARD REMEDY 4 OZ OINT TP PRN (16:00)
[2023-07-14] MEDS ORDERED: ONDANSETRON HCL/PF 4 MG/2 ML VIAL IVP PRN (16:00)
[2023-07-14] MEDS ORDERED: ACETAMINOPHEN 325 MG TABLET PO PRN (16:00)
[2023-07-14] MEDS: IV D5/0.45 NACL 1,000 ML IV PRN (16:41)
[2023-07-14] MEDS ORDERED: FUROSEMIDE 80 MG TABLET PO SCH (17:00)
[2023-07-14] MEDS ORDERED: FUROSEMIDE 40 MG TABLET PO SCH (17:00)
[2023-07-14] MEDS: CARVEDILOL 12.5 MG TABLET PO SCH ×2 (17:00→19:28)
[2023-07-14] MEDS: SUCRALFATE 1 G TABLET PO SCH (17:15)
[2023-07-14] MEDS: APIXABAN 2.5 MG TABLET PO SCH (17:17)
[2023-07-14 19:59] VITALS: BP 118/100; TEMP 99; O2SAT 98
[2023-07-14] MEDS: VANCOMYCIN POST DIALYSIS 500MG IV PRN ×2 (20:44)
[2023-07-14] MEDS ORDERED: CEFEPIME 1 GM VIAL IM SCH (21:00)
[2023-07-14] MEDS: ATORVASTATIN 40 MG TABLET PO SCH (22:11)
[2023-07-14] MEDS ORDERED: DEXTROSE 50%-WATER 50 ML DISP.SYRIN IV PRN (23:00)
[2023-07-15] VITALS (7 sets, daily range): BP systolic 88–109; BP diastolic 54–71; TEMP 97.3–99.4; O2SAT 92–98
[2023-07-15] MEDS: BLOOD SUGAR DIAGNOSTIC 1 EACH STRIP IN SCH ×4 (00:17→17:22)
[2023-07-15] MEDS: INSULIN REGULAR, HUMAN 100 UNIT/ML 3 ML VIAL SQ PRN ×4 (00:31→17:23)
[2023-07-15 05:48] LABS: BASOPHILS # (AUTO) 0.1 K/uL (0.0-0.2); BASOPHILS % (AUTO) 0.2 % (0.0-2.0); EOSINOPHILS % (AUTO) 0.1 % (0.0-6.0); HEMATOCRIT 36 % (39-51); LYMPHOCYTES # (AUTO) 0.8 K/uL (0.8-4.8); LYMPHOCYTES % (AUTO) 2.1 % (20.0-44.0); MEAN CORPUSCULAR HEMOGLOBIN 27 PG (26.0-33.0); MEAN CORPUSCULAR HGB CONC 31 g/dl (31.0-36.0); MEAN CORPUSCULAR VOLUME 88 fL (80-96); MONOCYTES # (AUTO) 2.4 K/uL (0.1-1.30); MONOCYTES % (AUTO) 6.5 % (2.0-12.0); NEUTROPHILS # (AUTO) 32.9 K/uL (1.8-8.9); NEUTROPHILS % (AUTO) 91.1 % (43.0-81.0); PLATELET COUNT (AUTO) 212 K/uL (150-450); RED BLOOD CELL COUNT(AUTO) 4.07 MIL/uL (4.5-6.0)
[2023-07-15 06:05] LABS: CALCIUM, SERUM 8.6 mg/dL (8.5-10.1); CARBON DIOXIDE 22 mmol/L (21-32); CHLORIDE 102 mmol/L (98-107); CREATININE 6.4 mg/dL (0.6-1.3); GLUCOSE 201 mg/dL (74-106); MAGNESIUM 1.8 mg/dL (1.8-2.4); PHOSPHORUS 4.5 mg/dL (2.5-4.9); POTASSIUM 4.5 mmol/L (3.5-5.1); SODIUM SERUM 135 mmol/L (136-145); UREA NITROGEN, BLOOD 44 mg/dL (7-18)
[2023-07-15 06:20] LABS: CHOLESTEROL 70 mg/dL (<200); HDL CHOLESTEROL 40 mg/dL (40-60); LDL 14 mg/dL (0-99); THYROID STIMULATING HORMONE 0.574 uIU/mL (0.358-3.74); TRIGLYCERIDES 86 mg/dL (30-150)
[2023-07-15 06:29] LABS: WHITE BLOOD COUNT (AUTO) 36.1 K/uL (4.3-11.0)
[2023-07-15] MEDS: IV D5/0.45 NACL 1,000 ML IV PRN (06:41)
[2023-07-15 07:02] LABS: IRON, SERUM 12 ug/dl (50-175); TOTAL IRON BINDING CAPACITY 92 ug/dl (250-450)
[2023-07-15] MEDS: CEFEPIME 1 GM in IV D5W 50 ML IV SCH (07:52)
[2023-07-15] MEDS: PANTOPRAZOLE 40 MG VIAL IV SCH (08:05)
[2023-07-15] MEDS: SUCRALFATE 1 G TABLET PO SCH ×3 (08:05→16:06)
[2023-07-15] MEDS: ASPIRIN EC 81 MG TABLET.DR PO SCH (08:06)
[2023-07-15] MEDS: CARVEDILOL 12.5 MG TABLET PO SCH ×2 (08:07→16:07)
[2023-07-15] MEDS: APIXABAN 2.5 MG TABLET PO SCH ×2 (08:27→16:07)
[2023-07-15] MEDS ORDERED: METOLAZONE 2.5 MG TABLET PO SCH (09:00)
[2023-07-15 09:46] LABS: NEUTROPHILS % (MANUAL) 88 (42-76)
[2023-07-15 09:47] LABS: ANISOCYTOSIS 1+; BASOPHILS % (MANUAL) 0 % (0.0-2.0); EOSINOPHILS % (MANUAL) 0 % (0-4); LYMPHOCYTES % (MANUAL) 4 % (16-48); MONOCYTES % (MANUAL) 8 % (0-11.0); PLATELET ESTIMATE ADEQUATE
[2023-07-15] MEDS: PROSOURCE / PROSTAT (PYXIS) 30 ML UDC GT SCH (16:06)
[2023-07-15] MEDS: ATORVASTATIN 40 MG TABLET PO SCH (21:41)
[2023-07-16] VITALS: BP 109/63; TEMP 98.5; O2SAT 98
[2023-07-16] MEDS: BLOOD SUGAR DIAGNOSTIC 1 EACH STRIP IN SCH ×5 (00:46→23:10)
[2023-07-16] MEDS: INSULIN REGULAR, HUMAN 100 UNIT/ML 3 ML VIAL SQ PRN ×5 (01:05→23:14)
[2023-07-16 04:00] VITALS: BP 104/65; TEMP 98.7; O2SAT 98
[2023-07-16 05:49] LABS: EOSINOPHILS # (AUTO) 0.1 K/uL (0.0-0.7); EOSINOPHILS % (AUTO) 0.4 % (0.0-6.0); HEMATOCRIT 36 % (39-51); LYMPHOCYTES # (AUTO) 0.6 K/uL (0.8-4.8); LYMPHOCYTES % (AUTO) 2.8 % (20.0-44.0); MEAN CORPUSCULAR HEMOGLOBIN 27 PG (26.0-33.0); MEAN CORPUSCULAR HGB CONC 31 g/dl (31.0-36.0); MEAN CORPUSCULAR VOLUME 87 fL (80-96); MONOCYTES # (AUTO) 1.2 K/uL (0.1-1.30); MONOCYTES % (AUTO) 5.7 % (2.0-12.0); NEUTROPHILS # (AUTO) 18.9 K/uL (1.8-8.9); NEUTROPHILS % (AUTO) 91.1 % (43.0-81.0); PLATELET COUNT (AUTO) 221 K/uL (150-450); RED BLOOD CELL COUNT(AUTO) 4.11 MIL/uL (4.5-6.0); RED CELL DISTRIBUTION WIDTH 17.2 % (11.5-15.0); WHITE BLOOD COUNT (AUTO) 20.7 K/uL (4.3-11.0)
[2023-07-16 06:05] LABS: CALCIUM, SERUM 8.8 mg/dL (8.5-10.1); CARBON DIOXIDE 21 mmol/L (21-32); CHLORIDE 101 mmol/L (98-107); CREATININE 7.2 mg/dL (0.6-1.3); GLUCOSE 231 mg/dL (74-106); MAGNESIUM 2.1 mg/dL (1.8-2.4); POTASSIUM 4.4 mmol/L (3.5-5.1); SODIUM SERUM 133 mmol/L (136-145); UREA NITROGEN, BLOOD 59 mg/dL (7-18)
[2023-07-16] MEDS: CEFEPIME 1 GM in IV D5W 50 ML IV SCH (08:14)
[2023-07-16] MEDS: PANTOPRAZOLE 40 MG VIAL IV SCH (08:20)
[2023-07-16] MEDS: ASPIRIN EC 81 MG TABLET.DR PO SCH (08:20)
[2023-07-16] MEDS: SUCRALFATE 1 G TABLET PO SCH ×3 (08:20→17:36)
[2023-07-16] MEDS: APIXABAN 2.5 MG TABLET PO SCH ×2 (08:21→17:39)
[2023-07-16] MEDS: CARVEDILOL 12.5 MG TABLET PO SCH ×2 (08:22→17:00)
[2023-07-16 08:29] VITALS: BP 99/70; TEMP 98.6; O2SAT 98
[2023-07-16] MEDS: PROSOURCE / PROSTAT (PYXIS) 30 ML UDC GT SCH ×2 (08:35→17:39)
[2023-07-16] MEDS: PANTOPRAZOLE 40 MG TABLET.DR PO SCH (09:54)
[2023-07-16 12:15] VITALS: BP 104/66; TEMP 98.5; O2SAT 95
[2023-07-16 16:14] VITALS: BP 107/65; TEMP 97.7; O2SAT 100
[2023-07-16 20:00] VITALS: BP 97/69; TEMP 98.2; O2SAT 97
[2023-07-16] MEDS: ATORVASTATIN 40 MG TABLET PO SCH (21:34)
[2023-07-16] MEDS: VANCOMYCIN POST DIALYSIS 500MG IV PRN ×2 (22:46)
[2023-07-17 01:17] VITALS: BP 110/76; TEMP 98.4; O2SAT 98
[2023-07-17 04:48] VITALS: BP 120/75; TEMP 97.6; O2SAT 97
[2023-07-17] MEDS: BLOOD SUGAR DIAGNOSTIC 1 EACH STRIP IN SCH ×3 (05:12→18:07)
[2023-07-17] MEDS: INSULIN REGULAR, HUMAN 100 UNIT/ML 3 ML VIAL SQ PRN ×3 (05:13→18:11)
[2023-07-17 05:48] LABS: BASOPHILS # (AUTO) 0.1 K/uL (0.0-0.2); BASOPHILS % (AUTO) 0.5 % (0.0-2.0); EOSINOPHILS # (AUTO) 0.2 K/uL (0.0-0.7); EOSINOPHILS % (AUTO) 0.9 % (0.0-6.0); HEMATOCRIT 38 % (39-51); HEMOGLOBIN 11.6 g/dL (13.5-17.5); LYMPHOCYTES # (AUTO) 0.6 K/uL (0.8-4.8); LYMPHOCYTES % (AUTO) 3.2 % (20.0-44.0); MEAN CORPUSCULAR HEMOGLOBIN 27 PG (26.0-33.0); MEAN CORPUSCULAR HGB CONC 31 g/dl (31.0-36.0); MEAN CORPUSCULAR VOLUME 87 fL (80-96); MONOCYTES # (AUTO) 1.4 K/uL (0.1-1.30); MONOCYTES % (AUTO) 7.6 % (2.0-12.0); NEUTROPHILS # (AUTO) 16.5 K/uL (1.8-8.9); NEUTROPHILS % (AUTO) 87.8 % (43.0-81.0); PLATELET COUNT (AUTO) 262 K/uL (150-450); RED BLOOD CELL COUNT(AUTO) 4.33 MIL/uL (4.5-6.0); RED CELL DISTRIBUTION WIDTH 17.1 % (11.5-15.0); WHITE BLOOD COUNT (AUTO) 18.8 K/uL (4.3-11.0)
[2023-07-17 06:28] LABS: CALCIUM, SERUM 9.3 mg/dL (8.5-10.1); CARBON DIOXIDE 21 mmol/L (21-32); CHLORIDE 98 mmol/L (98-107); CREATININE 5.8 mg/dL (0.6-1.3); GLUCOSE 214 mg/dL (74-106); MAGNESIUM 1.9 mg/dL (1.8-2.4); PHOSPHORUS 3.6 mg/dL (2.5-4.9); POTASSIUM 3.9 mmol/L (3.5-5.1); SODIUM SERUM 132 mmol/L (136-145); UREA NITROGEN, BLOOD 41 mg/dL (7-18)
[2023-07-17 07:00] VITALS: BP 125/109; TEMP 99; O2SAT 98
[2023-07-17 09:07] LABS: HEPATITIS B SURFACE AB Reactive (.)
[2023-07-17] MEDS: PROSOURCE / PROSTAT (PYXIS) 30 ML UDC GT SCH ×2 (09:30→17:00)
[2023-07-17] MEDS: CARVEDILOL 12.5 MG TABLET PO SCH ×2 (09:31→18:07)
[2023-07-17] MEDS: CEFEPIME 1 GM in IV D5W 50 ML IV SCH (09:31)
[2023-07-17] MEDS: SUCRALFATE 1 G TABLET PO SCH ×3 (09:31→18:06)
[2023-07-17] MEDS: ASPIRIN EC 81 MG TABLET.DR PO SCH (09:31)
[2023-07-17] MEDS: PANTOPRAZOLE 40 MG TABLET.DR PO SCH (09:31)
[2023-07-17] MEDS: APIXABAN 2.5 MG TABLET PO SCH ×2 (09:32→18:07)
[2023-07-17 13:00] VITALS: BP 124/83; TEMP 98.8; O2SAT 96
[2023-07-17 16:00] VITALS: BP 110/78; TEMP 99.1; O2SAT 96
[2023-07-17 20:00] VITALS: BP 135/95; TEMP 98.5; O2SAT 97
[2023-07-17] MEDS: ATORVASTATIN 40 MG TABLET PO SCH (22:44)
[2023-07-18] VITALS: BP 136/84; TEMP 98.5; O2SAT 96
[2023-07-18] MEDS: BLOOD SUGAR DIAGNOSTIC 1 EACH STRIP IN SCH ×5 (00:26→23:19)
[2023-07-18] MEDS: INSULIN REGULAR, HUMAN 100 UNIT/ML 3 ML VIAL SQ PRN ×5 (00:38→23:20)
[2023-07-18 04:00] VITALS: BP 131/79; TEMP 98.1; O2SAT 97
[2023-07-18 05:53] LABS: BASOPHILS % (AUTO) 0.1 % (0.0-2.0); EOSINOPHILS # (AUTO) 0.2 K/uL (0.0-0.7); HEMATOCRIT 37 % (39-51); HEMOGLOBIN 11.4 g/dL (13.5-17.5); LYMPHOCYTES # (AUTO) 0.7 K/uL (0.8-4.8); LYMPHOCYTES % (AUTO) 3.6 % (20.0-44.0); MEAN CORPUSCULAR HEMOGLOBIN 27 PG (26.0-33.0); MEAN CORPUSCULAR HGB CONC 31 g/dl (31.0-36.0); MEAN CORPUSCULAR VOLUME 86 fL (80-96); MONOCYTES # (AUTO) 1.6 K/uL (0.1-1.30); MONOCYTES % (AUTO) 8.4 % (2.0-12.0); NEUTROPHILS # (AUTO) 16.9 K/uL (1.8-8.9); NEUTROPHILS % (AUTO) 86.9 % (43.0-81.0); PLATELET COUNT (AUTO) 304 K/uL (150-450); RED BLOOD CELL COUNT(AUTO) 4.27 MIL/uL (4.5-6.0); RED CELL DISTRIBUTION WIDTH 16.7 % (11.5-15.0); WHITE BLOOD COUNT (AUTO) 19.5 K/uL (4.3-11.0)
[2023-07-18 06:05] LABS: CALCIUM, SERUM 9.2 mg/dL (8.5-10.1); CARBON DIOXIDE 22 mmol/L (21-32); CHLORIDE 96 mmol/L (98-107); CREATININE 7.1 mg/dL (0.6-1.3); GLUCOSE 213 mg/dL (74-106); MAGNESIUM 1.9 mg/dL (1.8-2.4); PHOSPHORUS 3.5 mg/dL (2.5-4.9); SODIUM SERUM 130 mmol/L (136-145); UREA NITROGEN, BLOOD 56 mg/dL (7-18)
[2023-07-18 07:00] VITALS: BP 101/82; TEMP 97.9; O2SAT 98
[2023-07-18] MEDS: CEFEPIME 1 GM in IV D5W 50 ML IV SCH (09:31)
[2023-07-18] MEDS: SUCRALFATE 1 G TABLET PO SCH ×3 (09:32→17:48)
[2023-07-18] MEDS: PANTOPRAZOLE 40 MG TABLET.DR PO SCH (09:32)
[2023-07-18] MEDS: CARVEDILOL 12.5 MG TABLET PO SCH ×2 (09:32→17:49)
[2023-07-18] MEDS: ASPIRIN EC 81 MG TABLET.DR PO SCH (09:32)
[2023-07-18] MEDS: APIXABAN 2.5 MG TABLET PO SCH ×2 (09:34→17:50)
[2023-07-18] MEDS: PROSOURCE / PROSTAT (PYXIS) 30 ML UDC GT SCH ×2 (10:37→17:48)
[2023-07-18 11:30] VITALS: BP 105/78; TEMP 98.4; O2SAT 98
[2023-07-18] MEDS: VANCOMYCIN POST DIALYSIS 500MG IV PRN ×2 (14:18)
[2023-07-18 16:00] VITALS: BP 119/69; TEMP 98.7; O2SAT 100
[2023-07-18] MEDS ORDERED: DOXY-326 PO (18:08)
[2023-07-18] MEDS ORDERED: SULF1TAB48 PO (18:08)
[2023-07-18 20:00] VITALS: BP 129/58; TEMP 98.2; O2SAT 95
[2023-07-18] MEDS: ATORVASTATIN 40 MG TABLET PO SCH ×2 (22:25→22:27)
[2023-07-19] VITALS: BP 109/73; TEMP 98.2; O2SAT 96
[2023-07-19 04:00] VITALS: BP 131/85; TEMP 97.9; O2SAT 95
[2023-07-19] MEDS: BLOOD SUGAR DIAGNOSTIC 1 EACH STRIP IN SCH ×2 (05:12→11:11)
[2023-07-19] MEDS: INSULIN REGULAR, HUMAN 100 UNIT/ML 3 ML VIAL SQ PRN ×2 (05:13→11:12)
[2023-07-19 05:49] LABS: BASOPHILS # (AUTO) 0.1 K/uL (0.0-0.2); BASOPHILS % (AUTO) 0.3 % (0.0-2.0); EOSINOPHILS # (AUTO) 0.3 K/uL (0.0-0.7); EOSINOPHILS % (AUTO) 1.5 % (0.0-6.0); HEMATOCRIT 36 % (39-51); HEMOGLOBIN 11.2 g/dL (13.5-17.5); LYMPHOCYTES # (AUTO) 0.8 K/uL (0.8-4.8); LYMPHOCYTES % (AUTO) 4.1 % (20.0-44.0); MEAN CORPUSCULAR HEMOGLOBIN 27 PG (26.0-33.0); MEAN CORPUSCULAR HGB CONC 32 g/dl (31.0-36.0); MEAN CORPUSCULAR VOLUME 86 fL (80-96); MONOCYTES # (AUTO) 1.8 K/uL (0.1-1.30); MONOCYTES % (AUTO) 8.9 % (2.0-12.0); NEUTROPHILS # (AUTO) 17.6 K/uL (1.8-8.9); NEUTROPHILS % (AUTO) 85.2 % (43.0-81.0); PLATELET COUNT (AUTO) 339 K/uL (150-450); RED BLOOD CELL COUNT(AUTO) 4.14 MIL/uL (4.5-6.0); RED CELL DISTRIBUTION WIDTH 16.7 % (11.5-15.0); WHITE BLOOD COUNT (AUTO) 20.6 K/uL (4.3-11.0)
[2023-07-19 06:05] LABS: EOSINOPHILS % (MANUAL) 2 % (0-4); LYMPHOCYTES % (MANUAL) 5 % (16-48); METAMYELOCYTES % 1 % (0-0); MONOCYTES % (MANUAL) 14 % (0-11.0); MYELOCYTES % 3 % (0-0); NEUTROPHILS % (MANUAL) 75 (42-76); PLATELET ESTIMATE ADEQUATE
[2023-07-19 06:10] LABS: CARBON DIOXIDE 23 mmol/L (21-32); CHLORIDE 94 mmol/L (98-107); CREATININE 5.7 mg/dL (0.6-1.3); GLUCOSE 296 mg/dL (74-106); MAGNESIUM 1.8 mg/dL (1.8-2.4); PHOSPHORUS 3.5 mg/dL (2.5-4.9); POTASSIUM 3.9 mmol/L (3.5-5.1); SODIUM SERUM 127 mmol/L (136-145); UREA NITROGEN, BLOOD 42 mg/dL (7-18)
[2023-07-19 07:00] VITALS: BP 130/83; TEMP 97.7; O2SAT 98
[2023-07-19] MEDS: CEFEPIME 1 GM in IV D5W 50 ML IV SCH (07:38)
[2023-07-19] MEDS: SUCRALFATE 1 G TABLET PO SCH ×2 (08:23→12:11)
[2023-07-19] MEDS: PROSOURCE / PROSTAT (PYXIS) 30 ML UDC GT SCH (08:23)
[2023-07-19] MEDS: PANTOPRAZOLE 40 MG TABLET.DR PO SCH (08:23)
[2023-07-19 08:24] VITALS: BP 130/83
[2023-07-19] MEDS: ASPIRIN EC 81 MG TABLET.DR PO SCH (08:24)
[2023-07-19] MEDS: CARVEDILOL 12.5 MG TABLET PO SCH (08:24)
[2023-07-19] MEDS: APIXABAN 2.5 MG TABLET PO SCH (08:25)
== END 2023-07-19 12:15 | disposition home health service (06) | DRG 871 ==
LOC: ER 07:30 → TELE 12:54
PROVIDERS: ADMIT Nurse Practitioner Acute Care; ATTEND Nurse Practitioner Acute Care
PROC: 5A1D70Z Performance of Urinary Filtration, Intermittent, Less than 6 Hours Per Day (ICD-10-PCS; principal; 2023-07-14)
DX: A41.89 Other specified sepsis (principal); G92.8 Other toxic encephalopathy; J15.9 Unspecified bacterial pneumonia; N18.6 End stage renal disease; D68.59 Other primary thrombophilia; I13.2 Hypertensive heart and chronic kidney disease with heart failure and with stage 5 chronic kidney disease, or end stage renal disease; I50.32 Chronic diastolic (congestive) heart failure; E87.1 Hypo-osmolality and hyponatremia; L97.429 Non-pressure chronic ulcer of left heel and midfoot with unspecified severity; Z68.41 Body mass index [BMI] 40.0-44.9, adult; D72.823 Leukemoid reaction; Z20.822 Contact with and (suspected) exposure to COVID-19; Z99.2 Dependence on renal dialysis; E11.22 Type 2 diabetes mellitus with diabetic chronic kidney disease; E11.51 Type 2 diabetes mellitus with diabetic peripheral angiopathy without gangrene; Z90.79 Acquired absence of other genital organ(s); Z89.419 Acquired absence of unspecified great toe; Z91.040 Latex allergy status; Z91.048 Other nonmedicinal substance allergy status; Z98.62 Peripheral vascular angioplasty status; Z79.4 Long term (current) use of insulin; Z79.01 Long term (current) use of anticoagulants; Z79.82 Long term (current) use of aspirin; Z79.899 Other long term (current) drug therapy; I25.10 Atherosclerotic heart disease of native coronary artery without angina pectoris; F03.90 Unspecified dementia, unspecified severity, without behavioral disturbance, psychotic disturbance, mood disturbance, and anxiety; E87.5 Hyperkalemia; E78.5 Hyperlipidemia, unspecified; I48.91 Unspecified atrial fibrillation; D64.9 Anemia, unspecified; M89.8X9 Other specified disorders of bone, unspecified site; L84 Corns and callosities; R65.20 Severe sepsis without septic shock; Z82.49 Family history of ischemic heart disease and other diseases of the circulatory system; G47.33 Obstructive sleep apnea (adult) (pediatric); F09 Unspecified mental disorder due to known physiological condition; E11.621 Type 2 diabetes mellitus with foot ulcer; E66.01 Morbid (severe) obesity due to excess calories
CPT/HCPCS: 36415; 71045-TC; 80048-TC; 80061-TC; 80076-TC; 80202-TC; 82962-TC; 83540-TC; 83605-TC; 83735-TC; 84100-TC; 84443-TC; 84484-TC; 85025-TC; 85730-TC; 86706; 87040-TC; 87186-TC; 87340; 90935-TC; A4223; C9113; C9803; G0378; J0692; J1815; J3370; J3490; J7030; J7060

== ENCOUNTER 2023-08-01 04:40 | Inpatient (IN) | payer MEDICARE, OTHER ==
[~2023-08-01] VITALS: Ht 172.7 cm; Wt 97.6 kg
[2023-08-01] VITALS (11 sets, daily range): BP systolic 98–126; BP diastolic 62–80; TEMP 96; O2SAT 94–100
[~2023-08-01 04:40] MED LIST changes: +APIX2.5T PO; +AZEL137S7 BNOSTRILS; +AZEL6DRO5 EACHEYE; +BLOO-668 IN; -CALC667C PO; -CHOL200026 PO; -CLON0.5T4 PO; -DICL1PAT11 TP; -DIVA125C5 PO; +DOXY-326 PO; +FOLI0.8T23 PO; -HYDR-4384 PO; +INSU100I4 SQ; -INSU3INS8 SQ; -IRBE150T28 PO; +IRBE300T19 PO; +LIRA0.6P SQ; -LIRA0.6P2 SQ; +NYST15CR2 TP; -PARI5VIA IVP; +PATI16.8 PO; +SULF1TAB48 PO; -VIT1TABL44 PO
[2023-08-01 05:09] LABS: BASOPHILS # (AUTO) 0.1 K/uL (0.0-0.2); BASOPHILS % (AUTO) 0.8 % (0.0-2.0); EOSINOPHILS # (AUTO) 0.2 K/uL (0.0-0.7); EOSINOPHILS % (AUTO) 1.3 % (0.0-6.0); HEMATOCRIT 34 % (39-51); HEMOGLOBIN 10.6 g/dL (13.5-17.5); MEAN CORPUSCULAR HEMOGLOBIN 27 PG (26.0-33.0); MEAN CORPUSCULAR HGB CONC 31 g/dl (31.0-36.0); MEAN CORPUSCULAR VOLUME 86 fL (80-96); MONOCYTES # (AUTO) 1.1 K/uL (0.1-1.30); NEUTROPHILS # (AUTO) 10.2 K/uL (1.8-8.9); NEUTROPHILS % (AUTO) 80.9 % (43.0-81.0); PLATELET COUNT (AUTO) 481 K/uL (150-450); RED BLOOD CELL COUNT(AUTO) 3.93 MIL/uL (4.5-6.0); RED CELL DISTRIBUTION WIDTH 16.9 % (11.5-15.0); WHITE BLOOD COUNT (AUTO) 12.6 K/uL (4.3-11.0)
[2023-08-01 05:35] LABS: LACTIC ACID 0.7 mmol/L (0.4-2.0)
[2023-08-01 05:40] LABS: CALCIUM, SERUM 8.9 mg/dL (8.5-10.1); CARBON DIOXIDE 26 mmol/L (21-32); CHLORIDE 101 mmol/L (98-107); CREATININE 6.4 mg/dL (0.6-1.3); GLUCOSE 140 mg/dL (74-106); POTASSIUM 4.3 mmol/L (3.5-5.1); SODIUM SERUM 135 mmol/L (136-145); UREA NITROGEN, BLOOD 28 mg/dL (7-18)
[2023-08-01 05:41] LABS: ALANINE AMINOTRANSFERASE 149 U/L (12-78); ALBUMIN 2.1 g/dL (3.4-5.0); ALKALINE PHOSPHATASE 620 U/L (46-116); ASPARTATE AMINOTRANSFERASE 107 U/L (15-37); BILIRUBIN,DIRECT 0.2 mg/dL (0.0-0.2); BILIRUBIN,TOTAL 0.4 mg/dL (0.2-1.0); NT-PRO BNP > 25000 pg/mL (0-125); TOTAL PROTEIN, SERUM 6.2 g/dL (6.4-8.2)
[2023-08-01 05:47] LABS: INR 1.18 (0.91-1.10); PROTHROMBIN TIME 12.4 SECS (9.2-11.1)
[2023-08-01] MEDS ORDERED: NITROGLYCERIN PACKET 1 GM PACKET TD ONE (06:30)
[2023-08-01] MEDS ORDERED: DILTIAZEM HCL 50 MG IV IV ONE (06:30)
[2023-08-01] MEDS ORDERED: FUROSEMIDE 40 MG/4 ML VIAL IV ONE (06:30)
[2023-08-01] MEDS ORDERED: NITROGLYCERIN PACKET 1 GM PACKET ONE (06:38)
[2023-08-01] MEDS ORDERED: FUROSEMIDE 40 MG/4 ML VIAL ONE (06:38)
[2023-08-01] MEDS ORDERED: DILTIAZEM HCL 50 MG IV ONE (06:39)
[2023-08-01] MEDS: IPRATROPIUM NEB FS 0.5 MG/2.5 ML AMPUL.NEB NEB SCH ×3 (10:00→20:08)
[2023-08-01] MEDS: methylPREDNISolone SOD SUCC 125 MG/2ML VIAL IV SCH ×2 (10:27→17:29)
[2023-08-01] MEDS ORDERED: LEVOFLOXACIN 500 MG /D5W 100ML 100 ML IV ONE (10:30)
[2023-08-01] MEDS ORDERED: APIXABAN 2.5 MG TABLET ONE (11:27)
[2023-08-01] MEDS: APIXABAN 2.5 MG TABLET PO SCH ×2 (11:27→21:00)
[2023-08-01] MEDS ORDERED: SUCRALFATE 1 G/10 ML UDC ONE (12:07)
[2023-08-01] MEDS ORDERED: METOCLOPRAMIDE HCL 10 MG TABLET ONE (12:07)
[2023-08-01] MEDS ORDERED: MEMANTINE HCL 5 MG TABLET ONE (12:07)
[2023-08-01] MEDS: MEMANTINE HCL 5 MG TABLET PO SCH ×2 (12:08→17:00)
[2023-08-01] MEDS: METOCLOPRAMIDE HCL 10 MG TABLET PO SCH ×2 (12:08→17:00)
[2023-08-01] MEDS: SUCRALFATE 1 G TABLET PO SCH ×2 (12:08→17:00)
[2023-08-01] MEDS ORDERED: ACETAMINOPHEN 325 MG TABLET PO PRN (13:00)
[2023-08-01] MEDS ORDERED: MAG HYDROX/AL HYDROX/SIMETH 30 ML UDC PO PRN (13:00)
[2023-08-01] MEDS ORDERED: HYDROCODONE/APAP 5/325MG TABLET PO PRN (13:00)
[2023-08-01] MEDS ORDERED: MAGNESIUM HYDROXIDE 30 ML UDC PO PRN (13:00)
[2023-08-01] MEDS ORDERED: Z GUARD REMEDY 4 OZ OINT TP PRN (13:00)
[2023-08-01] MEDS ORDERED: ONDANSETRON HCL/PF 4 MG/2 ML VIAL IVP PRN (13:00)
[2023-08-01] MEDS ORDERED: IPRATROPIUM NEB FS 0.5 MG/2.5 ML AMPUL.NEB ONE (14:35)
[2023-08-01] MEDS ORDERED: Medication Not On Formulary EA (Azelastine Hcl 1 DROP) EACHEYE SCH (17:00)
[2023-08-01] MEDS ORDERED: BLOOD SUGAR DIAGNOSTIC 1 EACH STRIP IN SCH (18:00)
[2023-08-01] MEDS: CARVEDILOL 12.5 MG TABLET PO SCH (21:00)
[2023-08-01] MEDS: ATORVASTATIN 40 MG TABLET PO SCH (21:04)
[2023-08-02] VITALS (31 sets, daily range): BP systolic 78–128; BP diastolic 52–75; TEMP 97–98.2; O2SAT 83–100
[2023-08-02] MEDS: IPRATROPIUM NEB FS 0.5 MG/2.5 ML AMPUL.NEB NEB SCH ×4 (02:10→19:29)
[2023-08-02] MEDS: PANTOPRAZOLE 40 MG TABLET.DR PO SCH (06:48)
[2023-08-02] MEDS ORDERED: PANTOPRAZOLE 40 MG TABLET.DR PO SCH (07:30)
[2023-08-02] MEDS: ASPIRIN EC 81 MG TABLET.DR PO SCH (08:03)
[2023-08-02] MEDS: CARVEDILOL 12.5 MG TABLET PO SCH ×2 (08:04→21:00)
[2023-08-02] MEDS: SUCRALFATE 1 G TABLET PO SCH ×3 (08:04→16:08)
[2023-08-02] MEDS: TAMSULOSIN 0.4 MG CAP.SR.24H PO SCH (08:06)
[2023-08-02] MEDS: APIXABAN 2.5 MG TABLET PO SCH ×2 (08:06→21:00)
[2023-08-02] MEDS: MEMANTINE HCL 5 MG TABLET PO SCH ×3 (08:06→16:08)
[2023-08-02] MEDS: METOCLOPRAMIDE HCL 10 MG TABLET PO SCH ×3 (08:07→16:08)
[2023-08-02] MEDS: methylPREDNISolone SOD SUCC 125 MG/2ML VIAL IV SCH ×2 (08:32→16:08)
[2023-08-02] MEDS ORDERED: DEXTROSE 50%-WATER 50 ML DISP.SYRIN IV PRN (09:00)
[2023-08-02 09:26] LABS: BASOPHILS % (AUTO) 0.3 % (0.0-2.0); HEMATOCRIT 35 % (39-51); HEMOGLOBIN 10.4 g/dL (13.5-17.5); LYMPHOCYTES # (AUTO) 1.1 K/uL (0.8-4.8); LYMPHOCYTES % (AUTO) 6.4 % (20.0-44.0); MEAN CORPUSCULAR HEMOGLOBIN 27 PG (26.0-33.0); MEAN CORPUSCULAR HGB CONC 30 g/dl (31.0-36.0); MEAN CORPUSCULAR VOLUME 90 fL (80-96); MONOCYTES # (AUTO) 1.3 K/uL (0.1-1.30); MONOCYTES % (AUTO) 7.8 % (2.0-12.0); NEUTROPHILS # (AUTO) 14.2 K/uL (1.8-8.9); NEUTROPHILS % (AUTO) 85.5 % (43.0-81.0); PLATELET COUNT (AUTO) 480 K/uL (150-450); RED BLOOD CELL COUNT(AUTO) 3.91 MIL/uL (4.5-6.0); RED CELL DISTRIBUTION WIDTH 17.9 % (11.5-15.0); WHITE BLOOD COUNT (AUTO) 16.6 K/uL (4.3-11.0)
[2023-08-02 09:47] LABS: ALANINE AMINOTRANSFERASE 87 U/L (12-78); ALKALINE PHOSPHATASE 486 U/L (46-116); ASPARTATE AMINOTRANSFERASE 23 U/L (15-37); BILIRUBIN,TOTAL 0.4 mg/dL (0.2-1.0); CALCIUM, SERUM 8.8 mg/dL (8.5-10.1); CARBON DIOXIDE 17 mmol/L (21-32); CHLORIDE 102 mmol/L (98-107); CREATININE 6.9 mg/dL (0.6-1.3); GLUCOSE 188 mg/dL (74-106); MAGNESIUM 2.3 mg/dL (1.8-2.4); POTASSIUM 4.8 mmol/L (3.5-5.1); SODIUM SERUM 137 mmol/L (136-145); UREA NITROGEN, BLOOD 42 mg/dL (7-18)
[2023-08-02] MEDS: BLOOD SUGAR DIAGNOSTIC 1 EACH STRIP IN SCH ×3 (11:32→22:17)
[2023-08-02] MEDS: DIGOXIN INJ 0.5 MG/2 ML AMPUL IV SCH ×3 (11:34→23:31)
[2023-08-02] MEDS: SEVELAMER CARBONATE 800 MG TABLET PO SCH ×2 (13:54→17:48)
[2023-08-02] MEDS: INSULIN REGULAR, HUMAN 100 UNIT/ML 3 ML VIAL SQ PRN ×2 (16:19→21:28)
[2023-08-02] MEDS: ATORVASTATIN 40 MG TABLET PO SCH (21:29)
[2023-08-03] VITALS (11 sets, daily range): BP systolic 100–146; BP diastolic 43–73; TEMP 97.9–98.9; O2SAT 95–100
[2023-08-03] MEDS: IPRATROPIUM NEB FS 0.5 MG/2.5 ML AMPUL.NEB NEB SCH ×4 (01:15→19:45)
[2023-08-03] MEDS: BLOOD SUGAR DIAGNOSTIC 1 EACH STRIP IN SCH ×4 (06:51→22:37)
[2023-08-03] MEDS: INSULIN REGULAR, HUMAN 100 UNIT/ML 3 ML VIAL SQ PRN ×4 (06:53→22:39)
[2023-08-03] MEDS: ASPIRIN EC 81 MG TABLET.DR PO SCH (08:24)
[2023-08-03] MEDS: APIXABAN 2.5 MG TABLET PO SCH ×2 (08:26→21:00)
[2023-08-03] MEDS: TAMSULOSIN 0.4 MG CAP.SR.24H PO SCH (08:26)
[2023-08-03] MEDS: MEMANTINE HCL 5 MG TABLET PO SCH ×3 (08:26→17:00)
[2023-08-03] MEDS: SEVELAMER CARBONATE 800 MG TABLET PO SCH ×3 (08:26→18:00)
[2023-08-03] MEDS: PANTOPRAZOLE 40 MG TABLET.DR PO SCH (08:26)
[2023-08-03] MEDS: methylPREDNISolone SOD SUCC 125 MG/2ML VIAL IV SCH ×2 (08:27→17:17)
[2023-08-03] MEDS: SUCRALFATE 1 G TABLET PO SCH ×3 (08:27→17:00)
[2023-08-03] MEDS: METOCLOPRAMIDE HCL 10 MG TABLET PO SCH ×3 (08:28→17:00)
[2023-08-03] MEDS: CARVEDILOL 12.5 MG TABLET PO SCH ×2 (08:33→21:00)
[2023-08-03] MEDS: LEVOFLOXACIN 250 MG /D5W 50 ML 250 MG in PREMIX 1 EA IV SCH (11:12)
[2023-08-03 12:21] LABS: BASOPHILS % (AUTO) 0.1 % (0.0-2.0); EOSINOPHILS % (AUTO) 0.1 % (0.0-6.0); HEMATOCRIT 36 % (39-51); HEMOGLOBIN 11.1 g/dL (13.5-17.5); LYMPHOCYTES # (AUTO) 0.6 K/uL (0.8-4.8); LYMPHOCYTES % (AUTO) 3.3 % (20.0-44.0); MEAN CORPUSCULAR HEMOGLOBIN 27 PG (26.0-33.0); MEAN CORPUSCULAR HGB CONC 31 g/dl (31.0-36.0); MEAN CORPUSCULAR VOLUME 88 fL (80-96); MONOCYTES % (AUTO) 5.4 % (2.0-12.0); NEUTROPHILS # (AUTO) 16.1 K/uL (1.8-8.9); NEUTROPHILS % (AUTO) 91.1 % (43.0-81.0); PLATELET COUNT (AUTO) 484 K/uL (150-450); RED BLOOD CELL COUNT(AUTO) 4.14 MIL/uL (4.5-6.0); RED CELL DISTRIBUTION WIDTH 17.3 % (11.5-15.0); WHITE BLOOD COUNT (AUTO) 17.6 K/uL (4.3-11.0)
[2023-08-03 12:31] LABS: CALCIUM, SERUM 8.9 mg/dL (8.5-10.1); CARBON DIOXIDE 24 mmol/L (21-32); CHLORIDE 98 mmol/L (98-107); CREATININE 5.9 mg/dL (0.6-1.3); GLUCOSE 312 mg/dL (74-106); POTASSIUM 3.8 mmol/L (3.5-5.1); SODIUM SERUM 131 mmol/L (136-145); UREA NITROGEN, BLOOD 37 mg/dL (7-18)
[2023-08-03 12:36] LABS: ALANINE AMINOTRANSFERASE 59 U/L (12-78); ALBUMIN 2.1 g/dL (3.4-5.0); ALKALINE PHOSPHATASE 419 U/L (46-116); ASPARTATE AMINOTRANSFERASE 16 U/L (15-37); BILIRUBIN,TOTAL 0.3 mg/dL (0.2-1.0); TOTAL PROTEIN, SERUM 6.2 g/dL (6.4-8.2)
[2023-08-03] MEDS: PROSOURCE / PROSTAT (PYXIS) 30 ML UDC PO SCH ×2 (13:00→17:00)
[2023-08-03] MEDS: ATORVASTATIN 40 MG TABLET PO SCH (22:00)
[2023-08-04] VITALS (11 sets, daily range): BP systolic 143–160; BP diastolic 71–76; TEMP 97.5–99.1; O2SAT 94–100
[2023-08-04] MEDS: IPRATROPIUM NEB FS 0.5 MG/2.5 ML AMPUL.NEB NEB SCH ×4 (01:41→19:44)
[2023-08-04 06:40] LABS: BASOPHILS % (AUTO) 0.2 % (0.0-2.0); HEMATOCRIT 37 % (39-51); HEMOGLOBIN 11.5 g/dL (13.5-17.5); LYMPHOCYTES # (AUTO) 0.8 K/uL (0.8-4.8); LYMPHOCYTES % (AUTO) 5.8 % (20.0-44.0); MEAN CORPUSCULAR HEMOGLOBIN 27 PG (26.0-33.0); MEAN CORPUSCULAR HGB CONC 31 g/dl (31.0-36.0); MEAN CORPUSCULAR VOLUME 86 fL (80-96); MONOCYTES # (AUTO) 1.2 K/uL (0.1-1.30); MONOCYTES % (AUTO) 8.2 % (2.0-12.0); NEUTROPHILS # (AUTO) 12.4 K/uL (1.8-8.9); NEUTROPHILS % (AUTO) 85.8 % (43.0-81.0); PLATELET COUNT (AUTO) 442 K/uL (150-450); RED CELL DISTRIBUTION WIDTH 17.1 % (11.5-15.0); WHITE BLOOD COUNT (AUTO) 14.5 K/uL (4.3-11.0)
[2023-08-04 06:52] LABS: ALANINE AMINOTRANSFERASE 45 U/L (12-78); ALBUMIN 2.1 g/dL (3.4-5.0); ALKALINE PHOSPHATASE 372 U/L (46-116); ASPARTATE AMINOTRANSFERASE 10 U/L (15-37); BILIRUBIN,TOTAL 0.4 mg/dL (0.2-1.0); CALCIUM, SERUM 9.3 mg/dL (8.5-10.1); CARBON DIOXIDE 24 mmol/L (21-32); CHLORIDE 99 mmol/L (98-107); CREATININE 6.8 mg/dL (0.6-1.3); GLUCOSE 249 mg/dL (74-106); MAGNESIUM 2.3 mg/dL (1.8-2.4); PHOSPHORUS 4.8 mg/dL (2.5-4.9); POTASSIUM 3.9 mmol/L (3.5-5.1); SODIUM SERUM 133 mmol/L (136-145); UREA NITROGEN, BLOOD 45 mg/dL (7-18)
[2023-08-04] MEDS: BLOOD SUGAR DIAGNOSTIC 1 EACH STRIP IN SCH ×5 (07:09→22:07)
[2023-08-04] MEDS: INSULIN REGULAR, HUMAN 100 UNIT/ML 3 ML VIAL SQ PRN ×4 (07:11→22:54)
[2023-08-04] MEDS: PANTOPRAZOLE 40 MG TABLET.DR PO SCH (07:30)
[2023-08-04] MEDS: SEVELAMER CARBONATE 800 MG TABLET PO SCH ×3 (07:58→17:06)
[2023-08-04] MEDS: ASPIRIN EC 81 MG TABLET.DR PO SCH (07:59)
[2023-08-04] MEDS: METOCLOPRAMIDE HCL 10 MG TABLET PO SCH (09:00)
[2023-08-04] MEDS: TAMSULOSIN 0.4 MG CAP.SR.24H PO SCH (09:00)
[2023-08-04] MEDS: MEMANTINE HCL 5 MG TABLET PO SCH ×3 (09:00→16:30)
[2023-08-04] MEDS: APIXABAN 2.5 MG TABLET PO SCH (09:00)
[2023-08-04] MEDS: CARVEDILOL 12.5 MG TABLET PO SCH ×2 (09:00→21:47)
[2023-08-04] MEDS: SUCRALFATE 1 G TABLET PO SCH ×3 (09:00→16:29)
[2023-08-04] MEDS: PROSOURCE / PROSTAT (PYXIS) 30 ML UDC PO SCH ×3 (09:00→16:33)
[2023-08-04] MEDS: methylPREDNISolone SOD SUCC 125 MG/2ML VIAL IV SCH ×2 (09:13→16:30)
[2023-08-04] MEDS: ENOXAPARIN SODIUM 40 MG/0.4 ML DISP.SYRIN SQ SCH (12:16)
[2023-08-04] MEDS ORDERED: BARIUM SULFATE SUSP 450 ML BOTTLE PO ONE (14:24)
[2023-08-04] MEDS: NEOMY SULF/BACITRAC ZN/POLY 15 GM TUBE TP SCH (14:24)
[2023-08-04] MEDS: METOCLOPRAMIDE HCL 10 MG/2 ML VIAL IV SCH (16:30)
[2023-08-04] MEDS: CLOTRIMAZOLE 1% 15 GM TUBE TP SCH (16:31)
[2023-08-04] MEDS: ATORVASTATIN 40 MG TABLET PO SCH (21:47)
[2023-08-05] VITALS (10 sets, daily range): BP systolic 124–168; BP diastolic 55–104; TEMP 97.7–98.8; O2SAT 95–99
[2023-08-05] MEDS: IPRATROPIUM NEB FS 0.5 MG/2.5 ML AMPUL.NEB NEB SCH ×3 (01:25→14:07)
[2023-08-05] MEDS: BLOOD SUGAR DIAGNOSTIC 1 EACH STRIP IN SCH ×2 (06:35→13:42)
[2023-08-05] MEDS: INSULIN REGULAR, HUMAN 100 UNIT/ML 3 ML VIAL SQ PRN ×2 (06:40→13:21)
[2023-08-05 07:10] LABS: ALANINE AMINOTRANSFERASE 37 U/L (12-78); ALBUMIN 2.2 g/dL (3.4-5.0); ALKALINE PHOSPHATASE 342 U/L (46-116); ASPARTATE AMINOTRANSFERASE 11 U/L (15-37); BILIRUBIN,TOTAL 0.3 mg/dL (0.2-1.0); CALCIUM, SERUM 9.2 mg/dL (8.5-10.1); CARBON DIOXIDE 23 mmol/L (21-32); CHLORIDE 101 mmol/L (98-107); CREATININE 5.2 mg/dL (0.6-1.3); GLUCOSE 329 mg/dL (74-106); POTASSIUM 4.1 mmol/L (3.5-5.1); SODIUM SERUM 134 mmol/L (136-145); TOTAL PROTEIN, SERUM 5.9 g/dL (6.4-8.2); UREA NITROGEN, BLOOD 33 mg/dL (7-18)
[2023-08-05 07:18] LABS: BASOPHILS % (AUTO) 0.1 % (0.0-2.0); HEMATOCRIT 38 % (39-51); HEMOGLOBIN 11.8 g/dL (13.5-17.5); LYMPHOCYTES # (AUTO) 0.7 K/uL (0.8-4.8); LYMPHOCYTES % (AUTO) 5.9 % (20.0-44.0); MEAN CORPUSCULAR HEMOGLOBIN 27 PG (26.0-33.0); MEAN CORPUSCULAR HGB CONC 31 g/dl (31.0-36.0); MEAN CORPUSCULAR VOLUME 87 fL (80-96); MONOCYTES # (AUTO) 0.8 K/uL (0.1-1.30); MONOCYTES % (AUTO) 7.1 % (2.0-12.0); NEUTROPHILS # (AUTO) 10.3 K/uL (1.8-8.9); NEUTROPHILS % (AUTO) 86.9 % (43.0-81.0); PLATELET COUNT (AUTO) 412 K/uL (150-450); RED BLOOD CELL COUNT(AUTO) 4.36 MIL/uL (4.5-6.0); RED CELL DISTRIBUTION WIDTH 17.2 % (11.5-15.0); WHITE BLOOD COUNT (AUTO) 11.8 K/uL (4.3-11.0)
[2023-08-05] MEDS: MEMANTINE HCL 5 MG TABLET PO SCH ×2 (08:57→13:49)
[2023-08-05] MEDS: methylPREDNISolone SOD SUCC 125 MG/2ML VIAL IV SCH (08:57)
[2023-08-05] MEDS: CARVEDILOL 12.5 MG TABLET PO SCH (08:58)
[2023-08-05] MEDS: SEVELAMER CARBONATE 800 MG TABLET PO SCH ×2 (08:58→13:49)
[2023-08-05] MEDS: ASPIRIN EC 81 MG TABLET.DR PO SCH (08:59)
[2023-08-05] MEDS: SUCRALFATE 1 G TABLET PO SCH ×2 (08:59→13:49)
[2023-08-05] MEDS: TAMSULOSIN 0.4 MG CAP.SR.24H PO SCH (08:59)
[2023-08-05] MEDS: METOCLOPRAMIDE HCL 10 MG/2 ML VIAL IV SCH ×2 (08:59→13:49)
[2023-08-05] MEDS ORDERED: MUPIROCIN OINT 2% 22 GM TUBE TP SCH (09:00)
[2023-08-05] MEDS: ENOXAPARIN SODIUM 40 MG/0.4 ML DISP.SYRIN SQ SCH (09:59)
[2023-08-05] MEDS: PANTOPRAZOLE 40 MG TABLET.DR PO SCH (10:12)
[2023-08-05] MEDS: NEOMY SULF/BACITRAC ZN/POLY 15 GM TUBE TP SCH (10:13)
[2023-08-05] MEDS: CLOTRIMAZOLE 1% 15 GM TUBE TP SCH (10:13)
[2023-08-05] MEDS: LEVOFLOXACIN 250 MG /D5W 50 ML 250 MG in PREMIX 1 EA IV SCH (11:25)
[2023-08-05] MEDS: PROSOURCE / PROSTAT (PYXIS) 30 ML UDC PO SCH ×2 (11:25→13:49)
[2023-08-05] MEDS ORDERED: LEVO750T46 PO (13:45)
[2023-08-05] MEDS ORDERED: PRED20TA PO (13:45)
[2023-08-05] MEDS ORDERED: ALBU1.257 NEB (13:48)
[2023-08-05] MEDS ORDERED: NEBU-281 MC (13:48)
[2023-08-05] MEDS ORDERED: IPRA0.2S49 IH (13:48)
== END 2023-08-05 16:00 | disposition home health service (06) | DRG 177 ==
LOC: ER 04:50 → TRANSITION 10:17 → ICU 15:16 → MED 08-03 00:26 → TELE 08-03 00:55 → MED 08-05 11:44
PROVIDERS: ATTEND Nurse Practitioner Acute Care
PROC: 5A1D70Z Performance of Urinary Filtration, Intermittent, Less than 6 Hours Per Day (ICD-10-PCS; principal; 2023-08-01)
DX: J69.0 Pneumonitis due to inhalation of food and vomit (principal); G92.8 Other toxic encephalopathy; I50.33 Acute on chronic diastolic (congestive) heart failure; J96.01 Acute respiratory failure with hypoxia; N18.6 End stage renal disease; K83.1 Obstruction of bile duct; I13.2 Hypertensive heart and chronic kidney disease with heart failure and with stage 5 chronic kidney disease, or end stage renal disease; D68.59 Other primary thrombophilia; Z20.822 Contact with and (suspected) exposure to COVID-19; F03.90 Unspecified dementia, unspecified severity, without behavioral disturbance, psychotic disturbance, mood disturbance, and anxiety; E11.51 Type 2 diabetes mellitus with diabetic peripheral angiopathy without gangrene; E11.22 Type 2 diabetes mellitus with diabetic chronic kidney disease; Z98.62 Peripheral vascular angioplasty status; Z90.79 Acquired absence of other genital organ(s); Z99.2 Dependence on renal dialysis; Z89.411 Acquired absence of right great toe; Z91.040 Latex allergy status; Z91.048 Other nonmedicinal substance allergy status; Z79.4 Long term (current) use of insulin; Z79.01 Long term (current) use of anticoagulants; Z79.82 Long term (current) use of aspirin; Z79.899 Other long term (current) drug therapy; J40 Bronchitis, not specified as acute or chronic; I48.91 Unspecified atrial fibrillation; D64.9 Anemia, unspecified; E66.01 Morbid (severe) obesity due to excess calories; Z68.32 Body mass index [BMI] 32.0-32.9, adult; R74.01 Elevation of levels of liver transaminase levels; M89.8X9 Other specified disorders of bone, unspecified site; K82.8 Other specified diseases of gallbladder; R13.10 Dysphagia, unspecified; G47.33 Obstructive sleep apnea (adult) (pediatric); E78.5 Hyperlipidemia, unspecified; F17.200 Nicotine dependence, unspecified, uncomplicated; I25.10 Atherosclerotic heart disease of native coronary artery without angina pectoris; Z82.49 Family history of ischemic heart disease and other diseases of the circulatory system; R60.9 Edema, unspecified; S91.302A Unspecified open wound, left foot, initial encounter; S91.301A Unspecified open wound, right foot, initial encounter; X58.XXXA Exposure to other specified factors, initial encounter; Y92.9 Unspecified place or not applicable; F09 Unspecified mental disorder due to known physiological condition; J15.9 Unspecified bacterial pneumonia
CPT/HCPCS: 36415; 71045-TC; 74230-TC; 76700-TC; 80048-TC; 80053-TC; 80076-TC; 82533; 82962-TC; 83605-TC; 83735-TC; 83880; 84100-TC; 84484-TC; 85025-TC; 85730-TC; 87040-TC; 87070; 90935-TC; 92526; 92611-TC; 94799-TC; A4216; A4223; C9803; G0378; J1160; J1650; J1815; J1940; J1956; J2765; J2930; J3490; J7030; J7040; J8597

== ENCOUNTER 2023-09-09 15:20 | Inpatient (IN) | payer MEDICARE, OTHER ==
[~2023-09-09] VITALS: Ht 172.7 cm; Wt 92.1 kg
[~2023-09-09 15:20] MED LIST changes: +ALBU1.257 NEB; -DOXY-326 PO; +IPRA0.2S49 IH; +LEVO750T46 PO; +NEBU-281 MC; +PRED20TA PO; -SULF1TAB48 PO
[2023-09-09] MEDS ORDERED: IPRA0.2S49 IH (16:13)
[2023-09-09] MEDS ORDERED: ALBU1.257 IH (16:13)
[2023-09-09] MEDS: CEFEPIME 1 GM in IV D5W 50 ML IV ONE (16:45)
[2023-09-09] MEDS: VANCOMYCIN 1 GM in IV D5W 250 ML IV ONE (17:20)
[2023-09-09 17:44] LABS: BASOPHILS % (AUTO) 0.2 % (0.0-2.0); EOSINOPHILS # (AUTO) 0.2 K/uL (0.0-0.7); EOSINOPHILS % (AUTO) 1.7 % (0.0-6.0); HEMATOCRIT 42 % (39-51); HEMOGLOBIN 12.9 g/dL (13.5-17.5); LYMPHOCYTES # (AUTO) 1.2 K/uL (0.8-4.8); LYMPHOCYTES % (AUTO) 9.5 % (20.0-44.0); MEAN CORPUSCULAR HEMOGLOBIN 26 PG (26.0-33.0); MEAN CORPUSCULAR HGB CONC 31 g/dl (31.0-36.0); MEAN CORPUSCULAR VOLUME 85 fL (80-96); MONOCYTES # (AUTO) 1.2 K/uL (0.1-1.30); MONOCYTES % (AUTO) 9.2 % (2.0-12.0); NEUTROPHILS # (AUTO) 10.4 K/uL (1.8-8.9); NEUTROPHILS % (AUTO) 79.4 % (43.0-81.0); PLATELET COUNT (AUTO) 328 K/uL (150-450); RED CELL DISTRIBUTION WIDTH 18.3 % (11.5-15.0); WHITE BLOOD COUNT (AUTO) 13.1 K/uL (4.3-11.0)
[2023-09-09 18:00] LABS: CALCIUM, SERUM 9.2 mg/dL (8.5-10.1); CARBON DIOXIDE 26 mmol/L (21-32); CHLORIDE 98 mmol/L (98-107); CREATININE 5.1 mg/dL (0.6-1.3); GLUCOSE 148 mg/dL (74-106); POTASSIUM 3.6 mmol/L (3.5-5.1); SODIUM SERUM 135 mmol/L (136-145); UREA NITROGEN, BLOOD 17 mg/dL (7-18)
[2023-09-09] MEDS ORDERED: DEXTROSE 50%-WATER 50 ML DISP.SYRIN IV PRN (18:00)
[2023-09-09] MEDS ORDERED: ACETAMINOPHEN 325 MG TABLET PO PRN (18:00)
[2023-09-09 18:03] LABS: LACTIC ACID 1.2 mmol/L (0.4-2.0)
[2023-09-09 18:11] LABS: ALANINE AMINOTRANSFERASE 91 U/L (12-78); ALBUMIN 2.2 g/dL (3.4-5.0); ALKALINE PHOSPHATASE 455 U/L (46-116); ASPARTATE AMINOTRANSFERASE 65 U/L (15-37); BILIRUBIN,DIRECT 0.2 mg/dL (0.0-0.2); BILIRUBIN,TOTAL 0.4 mg/dL (0.2-1.0); TOTAL PROTEIN, SERUM 6.2 g/dL (6.4-8.2)
[2023-09-09 18:14] LABS: INR 1.09 (0.91-1.10); PARTIAL THROMBOPLASTIN TIME 53.8 SEC (24.3-34.3); PROTHROMBIN TIME 11.5 SECS (9.2-11.1)
[2023-09-09] MEDS ORDERED: VANCOMYCIN POST DIALYSIS 500MG IV PRN (18:30)
[2023-09-09] MEDS: CARVEDILOL 12.5 MG TABLET PO SCH (21:50)
[2023-09-09] MEDS: ATORVASTATIN 40 MG TABLET PO SCH (21:50)
[2023-09-09] MEDS: BLOOD SUGAR DIAGNOSTIC 1 EACH STRIP IN SCH (21:50)
[2023-09-09] MEDS: INSULIN REGULAR, HUMAN 100 UNIT/ML 3 ML VIAL SQ PRN (22:15)
[2023-09-09] MEDS: INSULIN GLARGINE, 100 UNIT/ML CARTRIDGE SQ SCH (22:15)
[2023-09-10] VITALS: BP 124/67; TEMP 98.1; O2SAT 95
[2023-09-10 07:00] VITALS: BP 131/76; TEMP 97.3; O2SAT 93
[2023-09-10 07:14] LABS: BASOPHILS % (AUTO) 0.2 % (0.0-2.0); EOSINOPHILS # (AUTO) 0.1 K/uL (0.0-0.7); EOSINOPHILS % (AUTO) 1.1 % (0.0-6.0); HEMATOCRIT 38 % (39-51); HEMOGLOBIN 11.9 g/dL (13.5-17.5); LYMPHOCYTES # (AUTO) 0.9 K/uL (0.8-4.8); LYMPHOCYTES % (AUTO) 7.1 % (20.0-44.0); MEAN CORPUSCULAR HEMOGLOBIN 27 PG (26.0-33.0); MEAN CORPUSCULAR HGB CONC 32 g/dl (31.0-36.0); MEAN CORPUSCULAR VOLUME 84 fL (80-96); MONOCYTES # (AUTO) 1.1 K/uL (0.1-1.30); MONOCYTES % (AUTO) 9.1 % (2.0-12.0); NEUTROPHILS % (AUTO) 82.5 % (43.0-81.0); PLATELET COUNT (AUTO) 309 K/uL (150-450); RED BLOOD CELL COUNT(AUTO) 4.49 MIL/uL (4.5-6.0); RED CELL DISTRIBUTION WIDTH 18.5 % (11.5-15.0); WHITE BLOOD COUNT (AUTO) 12.1 K/uL (4.3-11.0)
[2023-09-10 07:36] LABS: ALANINE AMINOTRANSFERASE 66 U/L (12-78); ALBUMIN 1.9 g/dL (3.4-5.0); ALKALINE PHOSPHATASE 359 U/L (46-116); ASPARTATE AMINOTRANSFERASE 30 U/L (15-37); BILIRUBIN,TOTAL 0.3 mg/dL (0.2-1.0); CALCIUM, SERUM 9.2 mg/dL (8.5-10.1); CARBON DIOXIDE 26 mmol/L (21-32); CHLORIDE 99 mmol/L (98-107); CREATININE 5.9 mg/dL (0.6-1.3); GLUCOSE 252 mg/dL (74-106); MAGNESIUM 2.1 mg/dL (1.8-2.4); PHOSPHORUS 3.5 mg/dL (2.5-4.9); POTASSIUM 3.7 mmol/L (3.5-5.1); SODIUM SERUM 133 mmol/L (136-145); TOTAL PROTEIN, SERUM 5.4 g/dL (6.4-8.2); UREA NITROGEN, BLOOD 22 mg/dL (7-18)
[2023-09-10] MEDS: PANTOPRAZOLE 40 MG TABLET.DR PO SCH (08:16)
[2023-09-10] MEDS: MEMANTINE HCL 5 MG TABLET PO SCH (08:35)
[2023-09-10] MEDS: ASPIRIN EC 81 MG TABLET.DR PO SCH (08:35)
[2023-09-10] MEDS: METOLAZONE 2.5 MG TABLET PO SCH (08:35)
[2023-09-10] MEDS: APIXABAN 2.5 MG TABLET PO SCH (08:37)
[2023-09-10] MEDS: METOCLOPRAMIDE HCL 10 MG TABLET PO SCH (08:37)
[2023-09-10] MEDS: LOSARTAN POTASSIUM 50 MG TABLET PO SCH (08:39)
[2023-09-10] MEDS: FUROSEMIDE 40 MG TABLET PO SCH (08:54)
[2023-09-10] MEDS ORDERED: FUROSEMIDE 80 MG TABLET PO SCH (09:00)
[2023-09-10] MEDS: Z GUARD REMEDY 4 OZ OINT TP PRN (09:20)
[2023-09-10] MEDS: Z GUARD REMEDY 4 OZ OINT TP SCH (09:32)
[2023-09-10] MEDS: PROSOURCE / PROSTAT (PYXIS) 30 ML UDC PO SCH (12:51)
[2023-09-10 16:00] VITALS: BP 111/68; TEMP 97.7; O2SAT 97
[2023-09-10] MEDS: CEFEPIME 1 GM in IV D5W 50 ML IV SCH (16:36)
[2023-09-10] MEDS: ALFUZOSIN HCL 10 MG PO SCH (16:36)
[2023-09-10 20:00] VITALS: BP 125/61; TEMP 97.7; O2SAT 99
[2023-09-11 07:00] VITALS: BP 135/76; TEMP 97.9; O2SAT 96
[2023-09-11 07:34] LABS: BASOPHILS % (AUTO) 0.3 % (0.0-2.0); EOSINOPHILS # (AUTO) 0.2 K/uL (0.0-0.7); EOSINOPHILS % (AUTO) 1.6 % (0.0-6.0); HEMATOCRIT 35 % (39-51); HEMOGLOBIN 10.8 g/dL (13.5-17.5); LYMPHOCYTES # (AUTO) 1.5 K/uL (0.8-4.8); LYMPHOCYTES % (AUTO) 11.4 % (20.0-44.0); MEAN CORPUSCULAR HEMOGLOBIN 26 PG (26.0-33.0); MEAN CORPUSCULAR HGB CONC 31 g/dl (31.0-36.0); MEAN CORPUSCULAR VOLUME 84 fL (80-96); MONOCYTES # (AUTO) 1.3 K/uL (0.1-1.30); MONOCYTES % (AUTO) 9.8 % (2.0-12.0); NEUTROPHILS # (AUTO) 9.9 K/uL (1.8-8.9); NEUTROPHILS % (AUTO) 76.9 % (43.0-81.0); PLATELET COUNT (AUTO) 270 K/uL (150-450); RED CELL DISTRIBUTION WIDTH 17.4 % (11.5-15.0); WHITE BLOOD COUNT (AUTO) 12.9 K/uL (4.3-11.0)
[2023-09-11 07:35] LABS: ALANINE AMINOTRANSFERASE 44 U/L (12-78); ALBUMIN 1.8 g/dL (3.4-5.0); ALKALINE PHOSPHATASE 288 U/L (46-116); ASPARTATE AMINOTRANSFERASE 16 U/L (15-37); BILIRUBIN,TOTAL 0.3 mg/dL (0.2-1.0); CARBON DIOXIDE 24 mmol/L (21-32); CHLORIDE 100 mmol/L (98-107); CREATININE 4.1 mg/dL (0.6-1.3); GLUCOSE 191 mg/dL (74-106); POTASSIUM 3.3 mmol/L (3.5-5.1); SODIUM SERUM 133 mmol/L (136-145); TOTAL PROTEIN, SERUM 5.3 g/dL (6.4-8.2); UREA NITROGEN, BLOOD 17 mg/dL (7-18)
[2023-09-11] MEDS ORDERED: POLYETHYLENE GLYCOL 3350 17 GM POWD.PACK PO PRN (13:00)
[2023-09-11] MEDS: GENTAMICIN 0.1% OINT 15 GM TUBE TP SCH (13:31)
[2023-09-11 16:00] VITALS: BP 117/59; TEMP 98.6; O2SAT 94
[2023-09-11] MEDS: DOCUSATE SODIUM 100 MG CAPSULE PO SCH (17:35)
[2023-09-11] MEDS: MINERAL OIL/PETROLATUM,WHITE 120 GM JAR TP PRN (17:45)
[2023-09-11 17:52] LABS: HEMOGLOBIN 10.9 g/dL (13.5-17.5)
[2023-09-11 20:00] VITALS: BP 131/65; TEMP 98.4; O2SAT 98
[2023-09-12 07:00] VITALS: BP 122/62; TEMP 98.1; O2SAT 97
[2023-09-12 07:33] LABS: BASOPHILS % (AUTO) 0.4 % (0.0-2.0); EOSINOPHILS # (AUTO) 0.2 K/uL (0.0-0.7); EOSINOPHILS % (AUTO) 1.9 % (0.0-6.0); HEMATOCRIT 35 % (39-51); LYMPHOCYTES # (AUTO) 1.7 K/uL (0.8-4.8); LYMPHOCYTES % (AUTO) 12.6 % (20.0-44.0); MEAN CORPUSCULAR HEMOGLOBIN 27 PG (26.0-33.0); MEAN CORPUSCULAR HGB CONC 31 g/dl (31.0-36.0); MEAN CORPUSCULAR VOLUME 85 fL (80-96); MONOCYTES # (AUTO) 1.1 K/uL (0.1-1.30); MONOCYTES % (AUTO) 8.6 % (2.0-12.0); NEUTROPHILS # (AUTO) 10.1 K/uL (1.8-8.9); NEUTROPHILS % (AUTO) 76.5 % (43.0-81.0); PLATELET COUNT (AUTO) 282 K/uL (150-450); RED BLOOD CELL COUNT(AUTO) 4.13 MIL/uL (4.5-6.0); RED CELL DISTRIBUTION WIDTH 17.9 % (11.5-15.0); WHITE BLOOD COUNT (AUTO) 13.2 K/uL (4.3-11.0)
[2023-09-12 08:56] LABS: ALANINE AMINOTRANSFERASE 31 U/L (12-78); ALBUMIN 1.8 g/dL (3.4-5.0); ALKALINE PHOSPHATASE 248 U/L (46-116); ASPARTATE AMINOTRANSFERASE 16 U/L (15-37); BILIRUBIN,TOTAL 0.2 mg/dL (0.2-1.0); CARBON DIOXIDE 21 mmol/L (21-32); CHLORIDE 100 mmol/L (98-107); GLUCOSE 178 mg/dL (74-106); POTASSIUM 3.9 mmol/L (3.5-5.1); SODIUM SERUM 129 mmol/L (136-145); TOTAL PROTEIN, SERUM 5.4 g/dL (6.4-8.2); UREA NITROGEN, BLOOD 34 mg/dL (7-18)
[2023-09-12] MEDS: VANCOMYCIN 500 MG in IV D5W 100ml IV ONE (10:11)
[2023-09-12 15:27] LABS: INR 1.09 (0.91-1.10); PARTIAL THROMBOPLASTIN TIME 50.4 SEC (24.3-34.3); PROTHROMBIN TIME 11.5 SECS (9.2-11.1)
[2023-09-12 16:00] VITALS: BP 96/68; TEMP 98; O2SAT 97
[2023-09-12 16:08] LABS: THYROID STIMULATING HORMONE 1.721 uIU/mL (0.358-3.74)
[2023-09-12] MEDS: APIXABAN 2.5 MG TABLET PO SCH (17:27)
[2023-09-12 20:00] VITALS: BP 119/70; TEMP 97.5; O2SAT 96
[2023-09-12 21:00] VITALS: BP 117/70; TEMP 98; O2SAT 96
[2023-09-13 06:43] LABS: BASOPHILS # (AUTO) 0.1 K/uL (0.0-0.2); BASOPHILS % (AUTO) 0.5 % (0.0-2.0); EOSINOPHILS # (AUTO) 0.3 K/uL (0.0-0.7); EOSINOPHILS % (AUTO) 2.3 % (0.0-6.0); HEMATOCRIT 34 % (39-51); HEMOGLOBIN 10.7 g/dL (13.5-17.5); LYMPHOCYTES # (AUTO) 1.4 K/uL (0.8-4.8); MEAN CORPUSCULAR HEMOGLOBIN 26 PG (26.0-33.0); MEAN CORPUSCULAR HGB CONC 31 g/dl (31.0-36.0); MEAN CORPUSCULAR VOLUME 84 fL (80-96); MONOCYTES # (AUTO) 1.1 K/uL (0.1-1.30); MONOCYTES % (AUTO) 9.7 % (2.0-12.0); NEUTROPHILS # (AUTO) 8.8 K/uL (1.8-8.9); NEUTROPHILS % (AUTO) 75.5 % (43.0-81.0); PLATELET COUNT (AUTO) 264 K/uL (150-450); RED BLOOD CELL COUNT(AUTO) 4.09 MIL/uL (4.5-6.0); RED CELL DISTRIBUTION WIDTH 17.8 % (11.5-15.0); WHITE BLOOD COUNT (AUTO) 11.7 K/uL (4.3-11.0)
[2023-09-13 06:58] LABS: INR 1.12 (0.91-1.10); PARTIAL THROMBOPLASTIN TIME 52.3 SEC (24.3-34.3); PROTHROMBIN TIME 11.8 SECS (9.2-11.1)
[2023-09-13 07:01] LABS: ALANINE AMINOTRANSFERASE 21 U/L (12-78); ALBUMIN 1.7 g/dL (3.4-5.0); ALKALINE PHOSPHATASE 202 U/L (46-116); ASPARTATE AMINOTRANSFERASE 13 U/L (15-37); BILIRUBIN,TOTAL 0.3 mg/dL (0.2-1.0); CARBON DIOXIDE 26 mmol/L (21-32); CHLORIDE 103 mmol/L (98-107); GLUCOSE 181 mg/dL (74-106); POTASSIUM 3.4 mmol/L (3.5-5.1); SODIUM SERUM 136 mmol/L (136-145); TOTAL PROTEIN, SERUM 4.9 g/dL (6.4-8.2); UREA NITROGEN, BLOOD 25 mg/dL (7-18)
[2023-09-13 08:00] VITALS: BP 125/76; TEMP 98.1; O2SAT 98
[2023-09-13] MEDS: POTASSIUM CHLORIDE 20 MEQ POWDER PACKET PO ONE (11:08)
[2023-09-13 16:00] VITALS: BP 135/82; TEMP 98.4; O2SAT 95
[2023-09-14 00:05] LABS: HEMOGLOBIN 10.9 g/dL (13.5-17.5)
[2023-09-14 07:21] LABS: BASOPHILS # (AUTO) 0.1 K/uL (0.0-0.2); BASOPHILS % (AUTO) 0.4 % (0.0-2.0); EOSINOPHILS # (AUTO) 0.3 K/uL (0.0-0.7); EOSINOPHILS % (AUTO) 1.4 % (0.0-6.0); HEMATOCRIT 37 % (39-51); HEMOGLOBIN 11.4 g/dL (13.5-17.5); LYMPHOCYTES # (AUTO) 1.4 K/uL (0.8-4.8); LYMPHOCYTES % (AUTO) 7.1 % (20.0-44.0); MEAN CORPUSCULAR HEMOGLOBIN 26 PG (26.0-33.0); MEAN CORPUSCULAR HGB CONC 31 g/dl (31.0-36.0); MEAN CORPUSCULAR VOLUME 85 fL (80-96); MONOCYTES # (AUTO) 1.5 K/uL (0.1-1.30); MONOCYTES % (AUTO) 7.6 % (2.0-12.0); NEUTROPHILS # (AUTO) 16.3 K/uL (1.8-8.9); NEUTROPHILS % (AUTO) 83.5 % (43.0-81.0); PLATELET COUNT (AUTO) 326 K/uL (150-450); RED BLOOD CELL COUNT(AUTO) 4.36 MIL/uL (4.5-6.0); RED CELL DISTRIBUTION WIDTH 18.3 % (11.5-15.0); WHITE BLOOD COUNT (AUTO) 19.5 K/uL (4.3-11.0)
[2023-09-14 07:38] LABS: D-DIMER 0.23 mg/L(FEU (0.17-0.50); INR 1.13 (0.91-1.10); PROTHROMBIN TIME 11.9 SECS (9.2-11.1)
[2023-09-14 08:00] VITALS: BP 145/67; TEMP 98.1; O2SAT 94
[2023-09-14 08:06] LABS: OCCULT BLOOD STOOL POSITIVE (NEGATIVE)
[2023-09-14] MEDS: METOCLOPRAMIDE HCL 10 MG TABLET PO SCH ×2 (09:00→17:19)
[2023-09-14 10:56] LABS: ALANINE AMINOTRANSFERASE 26 U/L (12-78); ALKALINE PHOSPHATASE 212 U/L (46-116); ASPARTATE AMINOTRANSFERASE 18 U/L (15-37); BILIRUBIN,TOTAL 0.3 mg/dL (0.2-1.0); CALCIUM, SERUM 9.8 mg/dL (8.5-10.1); CARBON DIOXIDE 22 mmol/L (21-32); CHLORIDE 101 mmol/L (98-107); CREATININE 5.2 mg/dL (0.6-1.3); GLUCOSE 217 mg/dL (74-106); POTASSIUM 4.1 mmol/L (3.5-5.1); SODIUM SERUM 136 mmol/L (136-145); TOTAL PROTEIN, SERUM 5.9 g/dL (6.4-8.2); UREA NITROGEN, BLOOD 36 mg/dL (7-18)
[2023-09-14] MEDS: PHYTONADIONE INJ 10 MG/1 ML AMPUL SQ ONE (11:10)
[2023-09-14] MEDS: ONDANSETRON HCL/PF 4 MG/2 ML VIAL IVP PRN (11:11)
[2023-09-14] MEDS ORDERED: POTASSIUM CHLORIDE 20 MEQ TAB.PRT.SR PO ONE (12:30)
[2023-09-14] MEDS: IV D5/0.45 NACL 1,000 ML IV PRN (14:42)
[2023-09-14 16:00] VITALS: BP 141/78; TEMP 97.9; O2SAT 96
[2023-09-14] MEDS: HEPARIN INFUSION/D5W 500 ML IV PRN (16:33)
[2023-09-14 17:20] LABS: HEMOGLOBIN 11.9 g/dL (13.5-17.5)
[2023-09-14 20:00] VITALS: BP 112/57; TEMP 97.8; O2SAT 96
[2023-09-14] MEDS: IV NS 0.9% 1,000 ML IV PRN (23:53)
[2023-09-15 05:12] LABS: *SPE ALBUMIN 2.1 g/dL (2.9-4.4); *SPE ALPHA-1-GLOBULIN 0.3 g/dL (0.0-0.4); *SPE ALPHA-2-GLOBULIN 0.8 g/dL (0.4-1.0); *SPE BETA GLOBULIN 0.7 g/dL (0.7-1.3); *SPE GLOBULIN, TOTAL 2.2 g/dL (2.2-3.9); *SPE M-SPIKE Not Observed g/dL (Not Observed); *SPE PROTEIN TOTAL 4.3 g/dL (6.0-8.5); *SPEGAMMA GLOBULIN 0.5 g/dL (0.4-1.8)
[2023-09-15 07:08] LABS: HEPATITIS B SURFACE AB Reactive (.)
[2023-09-15 07:08] LABS: FOLIC ACID 11.9 ng/mL (>3.0)
[2023-09-15 07:32] LABS: BASOPHILS # (AUTO) 0.1 K/uL (0.0-0.2); BASOPHILS % (AUTO) 0.2 % (0.0-2.0); EOSINOPHILS # (AUTO) 0.2 K/uL (0.0-0.7); EOSINOPHILS % (AUTO) 0.8 % (0.0-6.0); HEMATOCRIT 28 % (39-51); HEMOGLOBIN 8.1 g/dL (13.5-17.5); LYMPHOCYTES % (AUTO) 4.2 % (20.0-44.0); MEAN CORPUSCULAR HEMOGLOBIN 26 PG (26.0-33.0); MEAN CORPUSCULAR HGB CONC 29 g/dl (31.0-36.0); MEAN CORPUSCULAR VOLUME 89 fL (80-96); MONOCYTES # (AUTO) 1.7 K/uL (0.1-1.30); MONOCYTES % (AUTO) 7.4 % (2.0-12.0); NEUTROPHILS # (AUTO) 19.7 K/uL (1.8-8.9); NEUTROPHILS % (AUTO) 87.4 % (43.0-81.0); PLATELET COUNT (AUTO) 222 K/uL (150-450); RED BLOOD CELL COUNT(AUTO) 3.11 MIL/uL (4.5-6.0); RED CELL DISTRIBUTION WIDTH 18.4 % (11.5-15.0); WHITE BLOOD COUNT (AUTO) 22.5 K/uL (4.3-11.0)
[2023-09-15 07:46] LABS: INR 1.24 (0.91-1.10); PARTIAL THROMBOPLASTIN TIME 54.1 SEC (24.3-34.3)
[2023-09-15 08:00] VITALS: BP 138/100; TEMP 99.1; O2SAT 96
[2023-09-15 08:10] LABS: IMMUNOGLOBULIN A, SERUM 145 mg/dL (61-437); IMMUNOGLOBULIN G, SERUM 554 mg/dL (603-1613); IMMUNOGLOBULIN M, SERUM 32 mg/dL (15-143)
[2023-09-15 08:23] LABS: ALANINE AMINOTRANSFERASE 14 U/L (12-78); ALKALINE PHOSPHATASE 137 U/L (46-116); ASPARTATE AMINOTRANSFERASE 15 U/L (15-37); BILIRUBIN,TOTAL 0.2 mg/dL (0.2-1.0); CALCIUM, SERUM 6.8 mg/dL (8.5-10.1); CARBON DIOXIDE 15 mmol/L (21-32); CHLORIDE 118 mmol/L (98-107); CREATININE 4.5 mg/dL (0.6-1.3); GLUCOSE 202 mg/dL (74-106); POTASSIUM 3.1 mmol/L (3.5-5.1); SODIUM SERUM 148 mmol/L (136-145); TOTAL PROTEIN, SERUM 3.4 g/dL (6.4-8.2); UREA NITROGEN, BLOOD 37 mg/dL (7-18)
[2023-09-15] MEDS: POTASSIUM CL. PREMIX PERIPHER. 50 ML IV SCH (09:32)
[2023-09-15] MEDS: VANCOMYCIN POST DIALYSIS 500MG IV PRN (10:01)
[2023-09-15] MEDS: BLOOD SUGAR DIAGNOSTIC 1 EACH STRIP IN SCH (12:18)
[2023-09-15] MEDS: METOCLOPRAMIDE HCL 10 MG/2 ML VIAL IV SCH (12:24)
[2023-09-15] MEDS ORDERED: DEXTROSE 50%-WATER 50 ML DISP.SYRIN IV PRN (12:30)
[2023-09-15] MEDS: MEROPENEM 500 MG in IV NS 0.9% 50 ML IV SCH (15:08)
[2023-09-15 16:00] VITALS: BP 136/83; TEMP 99.5; O2SAT 98
[2023-09-15] MEDS: INSULIN REGULAR, HUMAN 100 UNIT/ML 3 ML VIAL SQ PRN (16:51)
[2023-09-15 20:00] VITALS: BP 132/105; TEMP 97.9; O2SAT 96
[2023-09-15 21:02] VITALS: BP 132/105; TEMP 97.9; O2SAT 96
[2023-09-16 06:05] VITALS: BP 106/74; TEMP 97.9; O2SAT 96
[2023-09-16 07:26] LABS: BASOPHILS % (AUTO) 0.1 % (0.0-2.0); EOSINOPHILS # (AUTO) 0.2 K/uL (0.0-0.7); EOSINOPHILS % (AUTO) 0.5 % (0.0-6.0); HEMATOCRIT 35 % (39-51); HEMOGLOBIN 10.8 g/dL (13.5-17.5); LYMPHOCYTES # (AUTO) 1.5 K/uL (0.8-4.8); LYMPHOCYTES % (AUTO) 4.6 % (20.0-44.0); MEAN CORPUSCULAR HEMOGLOBIN 26 PG (26.0-33.0); MEAN CORPUSCULAR HGB CONC 31 g/dl (31.0-36.0); MEAN CORPUSCULAR VOLUME 84 fL (80-96); MONOCYTES # (AUTO) 1.9 K/uL (0.1-1.30); MONOCYTES % (AUTO) 5.8 % (2.0-12.0); NEUTROPHILS # (AUTO) 29.5 K/uL (1.8-8.9); PLATELET COUNT (AUTO) 308 K/uL (150-450); RED BLOOD CELL COUNT(AUTO) 4.11 MIL/uL (4.5-6.0); RED CELL DISTRIBUTION WIDTH 18.1 % (11.5-15.0)
[2023-09-16 07:37] LABS: WHITE BLOOD COUNT (AUTO) 33.2 K/uL (4.3-11.0)
[2023-09-16 07:38] LABS: ALANINE AMINOTRANSFERASE 14 U/L (12-78); ALBUMIN 1.6 g/dL (3.4-5.0); ALKALINE PHOSPHATASE 169 U/L (46-116); ASPARTATE AMINOTRANSFERASE 7 U/L (15-37); BILIRUBIN,TOTAL 0.3 mg/dL (0.2-1.0); CALCIUM, SERUM 9.4 mg/dL (8.5-10.1); CARBON DIOXIDE 21 mmol/L (21-32); CHLORIDE 103 mmol/L (98-107); CREATININE 6.7 mg/dL (0.6-1.3); GLUCOSE 185 mg/dL (74-106); POTASSIUM 4.1 mmol/L (3.5-5.1); SODIUM SERUM 136 mmol/L (136-145); UREA NITROGEN, BLOOD 49 mg/dL (7-18)
[2023-09-16 07:53] LABS: INR 1.17 (0.91-1.10); PARTIAL THROMBOPLASTIN TIME 47.3 SEC (24.3-34.3); PROTHROMBIN TIME 12.3 SECS (9.2-11.1)
[2023-09-16 08:09] LABS: ANISOCYTOSIS 1+; HYPOCHROMASIA 1+; LYMPHOCYTES % (MANUAL) 4 % (16-48); MONOCYTES % (MANUAL) 6 % (0-11.0); NEUTROPHILS % (MANUAL) 90 (42-76)
[2023-09-16 08:10] LABS: PLATELET ESTIMATE ADEQUATE
[2023-09-16] MEDS: DAKINS QUARTER STRENGTH (0.125%) 480 ML BOTTLE TOP SCH (08:58)
[2023-09-16 12:10] LABS: FREE KAPPA LT CHAINS SERUM 85.5 mg/L (3.3-19.4); FREE LAMBDA LT CHAIN SERUM 67.2 mg/L (5.7-26.3); KAPPA/LAMBDA RATIO SERUM 1.27 (0.26-1.65)
[2023-09-16 20:00] VITALS: BP 127/76; TEMP 98.8; O2SAT 97
[2023-09-17 01:02] VITALS: BP 152/79; TEMP 98.8; O2SAT 98
[2023-09-17 05:42] VITALS: BP 108/66; TEMP 97.7; O2SAT 97
[2023-09-17 07:00] VITALS: BP 148/88; TEMP 97.9; O2SAT 94
[2023-09-17 07:12] LABS: BASOPHILS # (AUTO) 0.1 K/uL (0.0-0.2); BASOPHILS % (AUTO) 0.3 % (0.0-2.0); EOSINOPHILS # (AUTO) 0.3 K/uL (0.0-0.7); EOSINOPHILS % (AUTO) 1.7 % (0.0-6.0); HEMATOCRIT 33 % (39-51); HEMOGLOBIN 10.4 g/dL (13.5-17.5); MEAN CORPUSCULAR HEMOGLOBIN 26 PG (26.0-33.0); MEAN CORPUSCULAR HGB CONC 32 g/dl (31.0-36.0); MEAN CORPUSCULAR VOLUME 83 fL (80-96); MONOCYTES # (AUTO) 1.4 K/uL (0.1-1.30); MONOCYTES % (AUTO) 7.3 % (2.0-12.0); NEUTROPHILS # (AUTO) 16.8 K/uL (1.8-8.9); NEUTROPHILS % (AUTO) 85.7 % (43.0-81.0); PLATELET COUNT (AUTO) 295 K/uL (150-450); RED BLOOD CELL COUNT(AUTO) 3.96 MIL/uL (4.5-6.0); RED CELL DISTRIBUTION WIDTH 17.7 % (11.5-15.0); WHITE BLOOD COUNT (AUTO) 19.7 K/uL (4.3-11.0)
[2023-09-17 07:52] LABS: ALANINE AMINOTRANSFERASE 14 U/L (12-78); ALBUMIN 1.5 g/dL (3.4-5.0); ALKALINE PHOSPHATASE 161 U/L (46-116); ASPARTATE AMINOTRANSFERASE 11 U/L (15-37); BILIRUBIN,TOTAL 0.3 mg/dL (0.2-1.0); CALCIUM, SERUM 8.8 mg/dL (8.5-10.1); CHLORIDE 102 mmol/L (98-107); CREATININE 4.2 mg/dL (0.6-1.3); GLUCOSE 180 mg/dL (74-106); SODIUM SERUM 139 mmol/L (136-145); TOTAL PROTEIN, SERUM 4.7 g/dL (6.4-8.2); UREA NITROGEN, BLOOD 24 mg/dL (7-18)
[2023-09-17 08:03] LABS: CARBON DIOXIDE 26 mmol/L (21-32)
[2023-09-17 08:10] LABS: INR 1.21 (0.91-1.10); PROTHROMBIN TIME 12.7 SECS (9.2-11.1)
[2023-09-17 08:16] LABS: PARTIAL THROMBOPLASTIN TIME > 170.0 SEC (24.3-34.3)
[2023-09-17 12:00] VITALS: BP 134/75; TEMP 97.8; O2SAT 95
[2023-09-17 16:11] VITALS: BP 132/93; TEMP 97.6; O2SAT 94
[2023-09-17] MEDS: MICAFUNGIN SODIUM 100 MG in IV NS 0.9% 100 ML IV SCH (17:36)
[2023-09-17 20:00] VITALS: BP_SYST 116; BP_DIAS 54; BP_DIAS 59; TEMP 97.5; O2SAT 97
[2023-09-18] VITALS (20 sets, daily range): BP systolic 118–161; BP diastolic 56–129; TEMP 97.6–97.9; O2SAT 97–100
[2023-09-18 04:53] LABS: BASOPHILS # (AUTO) 0.1 K/uL (0.0-0.2); BASOPHILS % (AUTO) 0.3 % (0.0-2.0); EOSINOPHILS # (AUTO) 0.3 K/uL (0.0-0.7); EOSINOPHILS % (AUTO) 2.1 % (0.0-6.0); HEMATOCRIT 35 % (39-51); HEMOGLOBIN 11.1 g/dL (13.5-17.5); LYMPHOCYTES % (AUTO) 6.2 % (20.0-44.0); MEAN CORPUSCULAR HEMOGLOBIN 26 PG (26.0-33.0); MEAN CORPUSCULAR HGB CONC 32 g/dl (31.0-36.0); MEAN CORPUSCULAR VOLUME 83 fL (80-96); MONOCYTES # (AUTO) 1.2 K/uL (0.1-1.30); MONOCYTES % (AUTO) 7.5 % (2.0-12.0); NEUTROPHILS # (AUTO) 13.9 K/uL (1.8-8.9); NEUTROPHILS % (AUTO) 83.9 % (43.0-81.0); PLATELET COUNT (AUTO) 344 K/uL (150-450); RED BLOOD CELL COUNT(AUTO) 4.25 MIL/uL (4.5-6.0); RED CELL DISTRIBUTION WIDTH 18.1 % (11.5-15.0); WHITE BLOOD COUNT (AUTO) 16.6 K/uL (4.3-11.0)
[2023-09-18 05:06] LABS: ALANINE AMINOTRANSFERASE 14 U/L (12-78); ALBUMIN 1.6 g/dL (3.4-5.0); ALKALINE PHOSPHATASE 177 U/L (46-116); ASPARTATE AMINOTRANSFERASE 14 U/L (15-37); BILIRUBIN,TOTAL 0.4 mg/dL (0.2-1.0); CALCIUM, SERUM 9.3 mg/dL (8.5-10.1); CARBON DIOXIDE 24 mmol/L (21-32); CHLORIDE 101 mmol/L (98-107); CREATININE 5.1 mg/dL (0.6-1.3); GLUCOSE 186 mg/dL (74-106); POTASSIUM 3.4 mmol/L (3.5-5.1); SODIUM SERUM 137 mmol/L (136-145); TOTAL PROTEIN, SERUM 5.1 g/dL (6.4-8.2); UREA NITROGEN, BLOOD 29 mg/dL (7-18)
[2023-09-18] MEDS ORDERED: IODIXANOL 150 ML IV ONE (10:48)
[2023-09-18] MEDS ORDERED: LIDOCAINE HCL/MPF 1% 30 ML VIAL IJ ONE (12:34)
[2023-09-18] MEDS ORDERED: HEPARIN SODIUM, PORCINE 1,000 UNIT/ML VIAL ONE (13:25)
[2023-09-18] MEDS ORDERED: HEPARIN SODIUM, PORCINE 5000 UNITS/1 ML VIAL ONE (13:25)
[2023-09-18] MEDS ORDERED: IV SET PRIMARY PUMP SET 1 EA INFUS.SET MC ONE (13:33)
[2023-09-18] MEDS ORDERED: IODIXANOL 320MG/ML 50 ML IV ONE (13:36)
[2023-09-18] MEDS ORDERED: CEFAZOLIN 2 GM in IV D5W 100 ML IV ONE (14:00)
[2023-09-18] MEDS: MORPHINE SULFATE INJ 2 MG/ML DISP.SYRIN IV PRN (14:50)
[2023-09-19] VITALS (34 sets, daily range): BP systolic 62–215; BP diastolic 36–161; TEMP 97.5–99.1; O2SAT 90–100
[2023-09-19] MEDS: hydrALAZINE HCL IV 20 MG VIAL IV PRN (00:45)
[2023-09-19 05:10] LABS: BASOPHILS # (AUTO) 0.1 K/uL (0.0-0.2); BASOPHILS % (AUTO) 0.3 % (0.0-2.0); EOSINOPHILS # (AUTO) 0.2 K/uL (0.0-0.7); EOSINOPHILS % (AUTO) 1.3 % (0.0-6.0); HEMATOCRIT 35 % (39-51); HEMOGLOBIN 10.6 g/dL (13.5-17.5); LYMPHOCYTES % (AUTO) 6.1 % (20.0-44.0); MEAN CORPUSCULAR HEMOGLOBIN 27 PG (26.0-33.0); MEAN CORPUSCULAR HGB CONC 30 g/dl (31.0-36.0); MEAN CORPUSCULAR VOLUME 88 fL (80-96); MONOCYTES # (AUTO) 1.6 K/uL (0.1-1.30); MONOCYTES % (AUTO) 9.7 % (2.0-12.0); NEUTROPHILS # (AUTO) 13.2 K/uL (1.8-8.9); NEUTROPHILS % (AUTO) 82.6 % (43.0-81.0); PLATELET COUNT (AUTO) 290 K/uL (150-450); RED BLOOD CELL COUNT(AUTO) 3.98 MIL/uL (4.5-6.0); RED CELL DISTRIBUTION WIDTH 18.3 % (11.5-15.0); WHITE BLOOD COUNT (AUTO) 16.1 K/uL (4.3-11.0)
[2023-09-19 05:21] LABS: ALANINE AMINOTRANSFERASE 11 U/L (12-78); ALKALINE PHOSPHATASE 158 U/L (46-116); ASPARTATE AMINOTRANSFERASE 11 U/L (15-37); BILIRUBIN,TOTAL 0.3 mg/dL (0.2-1.0); CARBON DIOXIDE 17 mmol/L (21-32); CHLORIDE 102 mmol/L (98-107); CREATININE 4.5 mg/dL (0.6-1.3); GLUCOSE 139 mg/dL (74-106); POTASSIUM 3.2 mmol/L (3.5-5.1); SODIUM SERUM 136 mmol/L (136-145); TOTAL PROTEIN, SERUM 4.8 g/dL (6.4-8.2); UREA NITROGEN, BLOOD 23 mg/dL (7-18)
[2023-09-19 05:25] LABS: ALBUMIN 1.4 g/dL (3.4-5.0)
[2023-09-19] MEDS: GENTAMICIN 0.1% OINT 15 GM TUBE TP SCH (08:51)
[2023-09-19] MEDS ORDERED: NEPRO 1,000 ML BOTTLE GT PRN (12:00)
[2023-09-19] MEDS: NEPRO 1,000 ML BOTTLE GT PRN (12:27)
[2023-09-19] MEDS: PROSOURCE / PROSTAT (PYXIS) 30 ML UDC NG SCH (17:00)
[2023-09-20] VITALS (44 sets, daily range): BP systolic 73–152; BP diastolic 37–124; TEMP 97.5–98.2; O2SAT 91–99
[2023-09-20 05:29] LABS: BASOPHILS % (AUTO) 0.2 % (0.0-2.0); HEMATOCRIT 33 % (39-51); HEMOGLOBIN 10.5 g/dL (13.5-17.5); LYMPHOCYTES # (AUTO) 0.9 K/uL (0.8-4.8); LYMPHOCYTES % (AUTO) 4.4 % (20.0-44.0); MEAN CORPUSCULAR HEMOGLOBIN 26 PG (26.0-33.0); MEAN CORPUSCULAR HGB CONC 31 g/dl (31.0-36.0); MEAN CORPUSCULAR VOLUME 83 fL (80-96); MONOCYTES # (AUTO) 1.4 K/uL (0.1-1.30); MONOCYTES % (AUTO) 6.7 % (2.0-12.0); NEUTROPHILS # (AUTO) 18.3 K/uL (1.8-8.9); NEUTROPHILS % (AUTO) 88.7 % (43.0-81.0); PLATELET COUNT (AUTO) 322 K/uL (150-450); RED BLOOD CELL COUNT(AUTO) 4.04 MIL/uL (4.5-6.0); RED CELL DISTRIBUTION WIDTH 17.8 % (11.5-15.0); WHITE BLOOD COUNT (AUTO) 20.7 K/uL (4.3-11.0)
[2023-09-20 05:48] LABS: ALANINE AMINOTRANSFERASE 8 U/L (12-78); ALBUMIN 1.6 g/dL (3.4-5.0); ALKALINE PHOSPHATASE 144 U/L (46-116); ASPARTATE AMINOTRANSFERASE 10 U/L (15-37); BILIRUBIN,TOTAL 0.4 mg/dL (0.2-1.0); CALCIUM, SERUM 9.5 mg/dL (8.5-10.1); CARBON DIOXIDE 28 mmol/L (21-32); CHLORIDE 99 mmol/L (98-107); CREATININE 5.5 mg/dL (0.6-1.3); GLUCOSE 191 mg/dL (74-106); POTASSIUM 3.2 mmol/L (3.5-5.1); SODIUM SERUM 142 mmol/L (136-145); TOTAL PROTEIN, SERUM 4.9 g/dL (6.4-8.2); UREA NITROGEN, BLOOD 32 mg/dL (7-18)
[2023-09-20] MEDS ORDERED: DOSE PER PHARMACY (MD SPECIFY MEDICATION) 1 EA XX PRN (10:00)
[2023-09-20] MEDS: PANTOPRAZOLE 40 MG/PACK PACK GT SCH (11:18)
[2023-09-20] MEDS: IV NS 0.9% 250 ML IV SCH (12:38)
[2023-09-20] MEDS: IV NS 0.9% 250 ML IV ONE (14:09)
[2023-09-20 14:34] LABS: HIV-1 p24 ANTIGEN NON REACTIVE (NONREACTIVE); HIV-1/2 ANTIBODY NON REACTIVE (NONREACTIVE)
[2023-09-20] MEDS: HEPARIN INFUSION/D5W 500 ML IV PRN (14:46)
[2023-09-20] MEDS ORDERED: DILTIAZEM HCL IV 125 MG in IV NS 0.9% 100 ML IV PRN (16:00)
[2023-09-20] MEDS: AMIODARONE 150 MG in IV D5W 100 ML IV ONE (17:04)
[2023-09-20] MEDS: AMIODARONE 450 MG in IV D5W 241 ML IV PRN (17:19)
[2023-09-20] MEDS ORDERED: NEPRO 1,000 ML BOTTLE GT PRN (20:00)
[2023-09-21] VITALS (56 sets, daily range): BP systolic 88–125; BP diastolic 49–97; TEMP 97.5–98.3; O2SAT 88–99
[2023-09-21 04:24] LABS: BASOPHILS # (AUTO) 0.1 K/uL (0.0-0.2); BASOPHILS % (AUTO) 0.4 % (0.0-2.0); EOSINOPHILS % (AUTO) 0.2 % (0.0-6.0); HEMATOCRIT 30 % (39-51); HEMOGLOBIN 9.7 g/dL (13.5-17.5); LYMPHOCYTES # (AUTO) 1.5 K/uL (0.8-4.8); LYMPHOCYTES % (AUTO) 6.3 % (20.0-44.0); MEAN CORPUSCULAR HEMOGLOBIN 26 PG (26.0-33.0); MEAN CORPUSCULAR HGB CONC 32 g/dl (31.0-36.0); MEAN CORPUSCULAR VOLUME 82 fL (80-96); MONOCYTES # (AUTO) 1.6 K/uL (0.1-1.30); MONOCYTES % (AUTO) 6.8 % (2.0-12.0); NEUTROPHILS % (AUTO) 86.3 % (43.0-81.0); PLATELET COUNT (AUTO) 295 K/uL (150-450); RED BLOOD CELL COUNT(AUTO) 3.68 MIL/uL (4.5-6.0); RED CELL DISTRIBUTION WIDTH 17.4 % (11.5-15.0); WHITE BLOOD COUNT (AUTO) 23.2 K/uL (4.3-11.0)
[2023-09-21 04:49] LABS: ALANINE AMINOTRANSFERASE < 6 U/L (12-78); ALKALINE PHOSPHATASE 125 U/L (46-116); ASPARTATE AMINOTRANSFERASE 10 U/L (15-37); BILIRUBIN,TOTAL 0.3 mg/dL (0.2-1.0); CALCIUM, SERUM 9.5 mg/dL (8.5-10.1); CHLORIDE 99 mmol/L (98-107); CREATININE 5.7 mg/dL (0.6-1.3); GLUCOSE 135 mg/dL (74-106); SODIUM SERUM 147 mmol/L (136-145); TOTAL PROTEIN, SERUM 4.4 g/dL (6.4-8.2); UREA NITROGEN, BLOOD 31 mg/dL (7-18)
[2023-09-21 04:50] LABS: POTASSIUM 2.5 mmol/L (3.5-5.1)
[2023-09-21 04:51] LABS: ALBUMIN 1.4 g/dL (3.4-5.0); CARBON DIOXIDE 41 mmol/L (21-32)
[2023-09-21] MEDS: POTASSIUM CL. PREMIX PERIPHER. 50 ML IV SCH (06:30)
[2023-09-21] MEDS: PANTOPRAZOLE 40 MG VIAL IV SCH (09:55)
[2023-09-21 12:28] LABS: INR 1.08 (0.91-1.10); PROTHROMBIN TIME 11.4 SECS (9.2-11.1)
[2023-09-21] MEDS: PANTOPRAZOLE 80 MG in IV NS 0.9% 100 ML IV ONE (13:52)
[2023-09-21] MEDS: PANTOPRAZOLE 80 MG in IV NS 0.9% 500 ML IV PRN (14:10)
[2023-09-21] MEDS ORDERED: METOPROLOL TARTRATE 25 MG TABLET PO SCH (15:00)
[2023-09-21] MEDS: METOPROLOL TARTRATE INJ 5 MG/5 ML AMPUL IVP SCH (15:38)
[2023-09-22] VITALS (53 sets, daily range): BP systolic 90–142; BP diastolic 50–86; TEMP 97.5–98.7; O2SAT 83–100
[2023-09-22 06:52] LABS: BASOPHILS % (AUTO) 0.1 % (0.0-2.0); EOSINOPHILS % (AUTO) 0.2 % (0.0-6.0); HEMATOCRIT 29 % (39-51); HEMOGLOBIN 9.1 g/dL (13.5-17.5); LYMPHOCYTES # (AUTO) 1.8 K/uL (0.8-4.8); LYMPHOCYTES % (AUTO) 8.2 % (20.0-44.0); MEAN CORPUSCULAR HEMOGLOBIN 26 PG (26.0-33.0); MEAN CORPUSCULAR HGB CONC 31 g/dl (31.0-36.0); MEAN CORPUSCULAR VOLUME 84 fL (80-96); MONOCYTES # (AUTO) 1.4 K/uL (0.1-1.30); MONOCYTES % (AUTO) 6.7 % (2.0-12.0); NEUTROPHILS # (AUTO) 18.3 K/uL (1.8-8.9); NEUTROPHILS % (AUTO) 84.8 % (43.0-81.0); PLATELET COUNT (AUTO) 318 K/uL (150-450); RED BLOOD CELL COUNT(AUTO) 3.48 MIL/uL (4.5-6.0); RED CELL DISTRIBUTION WIDTH 17.9 % (11.5-15.0); WHITE BLOOD COUNT (AUTO) 21.5 K/uL (4.3-11.0)
[2023-09-22 07:02] LABS: ALANINE AMINOTRANSFERASE < 6 U/L (12-78); ALBUMIN 1.5 g/dL (3.4-5.0); ALKALINE PHOSPHATASE 123 U/L (46-116); ASPARTATE AMINOTRANSFERASE 11 U/L (15-37); BILIRUBIN,TOTAL 0.4 mg/dL (0.2-1.0); CALCIUM, SERUM 9.6 mg/dL (8.5-10.1); CARBON DIOXIDE 34 mmol/L (21-32); CHLORIDE 99 mmol/L (98-107); CREATININE 6.6 mg/dL (0.6-1.3); GLUCOSE 168 mg/dL (74-106); POTASSIUM 3.6 mmol/L (3.5-5.1); SODIUM SERUM 147 mmol/L (136-145); TOTAL PROTEIN, SERUM 4.5 g/dL (6.4-8.2); UREA NITROGEN, BLOOD 36 mg/dL (7-18)
[2023-09-23] VITALS (44 sets, daily range): BP systolic 100–150; BP diastolic 51–99; TEMP 97.2–98.2; O2SAT 95–100
[2023-09-23 04:02] LABS: BASOPHILS # (AUTO) 0.1 K/uL (0.0-0.2); BASOPHILS % (AUTO) 0.3 % (0.0-2.0); EOSINOPHILS # (AUTO) 0.1 K/uL (0.0-0.7); EOSINOPHILS % (AUTO) 0.7 % (0.0-6.0); HEMATOCRIT 28 % (39-51); HEMOGLOBIN 8.5 g/dL (13.5-17.5); LYMPHOCYTES # (AUTO) 1.4 K/uL (0.8-4.8); LYMPHOCYTES % (AUTO) 7.8 % (20.0-44.0); MEAN CORPUSCULAR HEMOGLOBIN 26 PG (26.0-33.0); MEAN CORPUSCULAR HGB CONC 31 g/dl (31.0-36.0); MEAN CORPUSCULAR VOLUME 85 fL (80-96); MONOCYTES # (AUTO) 1.2 K/uL (0.1-1.30); MONOCYTES % (AUTO) 6.6 % (2.0-12.0); NEUTROPHILS # (AUTO) 15.2 K/uL (1.8-8.9); NEUTROPHILS % (AUTO) 84.6 % (43.0-81.0); PLATELET COUNT (AUTO) 308 K/uL (150-450); RED BLOOD CELL COUNT(AUTO) 3.26 MIL/uL (4.5-6.0); RED CELL DISTRIBUTION WIDTH 17.4 % (11.5-15.0)
[2023-09-23 04:42] LABS: ALBUMIN 1.5 g/dL (3.4-5.0); ALKALINE PHOSPHATASE 110 U/L (46-116); ASPARTATE AMINOTRANSFERASE 16 U/L (15-37); BILIRUBIN,TOTAL 0.3 mg/dL (0.2-1.0); CALCIUM, SERUM 9.1 mg/dL (8.5-10.1); CARBON DIOXIDE 31 mmol/L (21-32); CHLORIDE 101 mmol/L (98-107); GLUCOSE 119 mg/dL (74-106); POTASSIUM 3.6 mmol/L (3.5-5.1); SODIUM SERUM 141 mmol/L (136-145); TOTAL PROTEIN, SERUM 4.3 g/dL (6.4-8.2); UREA NITROGEN, BLOOD 21 mg/dL (7-18)
[2023-09-23 04:50] LABS: ALANINE AMINOTRANSFERASE < 6 U/L (12-78)
[2023-09-23] MEDS ORDERED: TPN/PPN PER PHARMACY IV PRN (07:30)
[2023-09-23 10:31] LABS: MAGNESIUM 1.8 mg/dL (1.8-2.4); PHOSPHORUS 4.3 mg/dL (2.5-4.9)
[2023-09-23] MEDS: METOPROLOL TARTRATE INJ 5 MG/5 ML AMPUL IVP SCH (10:58)
[2023-09-23] MEDS ORDERED: BLOOD SUGAR DIAGNOSTIC 1 EACH STRIP IN SCH (12:00)
[2023-09-23] MEDS ORDERED: TPN BAG #1 IV SCH (15:00)
[2023-09-23] MEDS: BLOOD SUGAR DIAGNOSTIC 1 EACH STRIP IN SCH (18:10)
[2023-09-23] MEDS: DEXTROSE 50%-WATER 50 ML DISP.SYRIN IV PRN (22:52)
[2023-09-24] VITALS (61 sets, daily range): BP systolic 67–158; BP diastolic 36–138; TEMP 97.2–98.4; O2SAT 97–100
[2023-09-24 04:45] LABS: ALANINE AMINOTRANSFERASE < 6 U/L (12-78); ALKALINE PHOSPHATASE 87 U/L (46-116); ASPARTATE AMINOTRANSFERASE 10 U/L (15-37); BILIRUBIN,TOTAL 0.3 mg/dL (0.2-1.0); CALCIUM, SERUM 8.7 mg/dL (8.5-10.1); CARBON DIOXIDE 32 mmol/L (21-32); CHLORIDE 105 mmol/L (98-107); CREATININE 4.8 mg/dL (0.6-1.3); GLUCOSE 96 mg/dL (74-106); POTASSIUM 3.8 mmol/L (3.5-5.1); SODIUM SERUM 143 mmol/L (136-145); TOTAL PROTEIN, SERUM 3.7 g/dL (6.4-8.2); UREA NITROGEN, BLOOD 30 mg/dL (7-18)
[2023-09-24 04:51] LABS: ALBUMIN 1.3 g/dL (3.4-5.0)
[2023-09-24 05:20] LABS: BASOPHILS % (AUTO) 0.2 % (0.0-2.0); EOSINOPHILS # (AUTO) 0.2 K/uL (0.0-0.7); EOSINOPHILS % (AUTO) 1.1 % (0.0-6.0); LYMPHOCYTES # (AUTO) 2.5 K/uL (0.8-4.8); LYMPHOCYTES % (AUTO) 14.9 % (20.0-44.0); MEAN CORPUSCULAR HEMOGLOBIN 27 PG (26.0-33.0); MEAN CORPUSCULAR HGB CONC 32 g/dl (31.0-36.0); MEAN CORPUSCULAR VOLUME 84 fL (80-96); MONOCYTES # (AUTO) 0.9 K/uL (0.1-1.30); MONOCYTES % (AUTO) 5.5 % (2.0-12.0); NEUTROPHILS # (AUTO) 13.4 K/uL (1.8-8.9); NEUTROPHILS % (AUTO) 78.3 % (43.0-81.0); PLATELET COUNT (AUTO) 293 K/uL (150-450); RED BLOOD CELL COUNT(AUTO) 2.23 MIL/uL (4.5-6.0); RED CELL DISTRIBUTION WIDTH 17.4 % (11.5-15.0); WHITE BLOOD COUNT (AUTO) 17.1 K/uL (4.3-11.0)
[2023-09-24 05:40] LABS: HEMATOCRIT 19 % (39-51); HEMOGLOBIN 5.9 g/dL (13.5-17.5)
[2023-09-24 06:11] LABS: EOSINOPHILS % (MANUAL) 1 % (0-4); LYMPHOCYTES % (MANUAL) 16 % (16-48); MONOCYTES % (MANUAL) 4 % (0-11.0); NEUTROPHILS % (MANUAL) 79 (42-76); PLATELET ESTIMATE ADEQUATE
[2023-09-24 06:12] LABS: ANISOCYTOSIS 1+; HYPOCHROMASIA 1+
[2023-09-24] MEDS: IV D5/0.45 NACL 1,000 ML IV ONE (08:03)
[2023-09-24] MEDS: IV NS 0.9% 500 ML IV ONE (08:04)
[2023-09-24 16:18] LABS: HEMOGLOBIN 10.2 g/dL (13.5-17.5)
[2023-09-24 16:40] LABS: INR 1.24 (0.91-1.10); PARTIAL THROMBOPLASTIN TIME 43.8 SEC (24.3-34.3)
[2023-09-25] VITALS (89 sets, daily range): BP systolic 64–134; BP diastolic 30–108; TEMP 97–98.3; O2SAT 93–100
[2023-09-25] MEDS: INSULIN REGULAR, HUMAN 100 UNIT/ML 3 ML VIAL SQ PRN ×3 (00:48→18:24)
[2023-09-25 06:57] LABS: BASOPHILS # (AUTO) 0.1 K/uL (0.0-0.2); BASOPHILS % (AUTO) 0.3 % (0.0-2.0); EOSINOPHILS # (AUTO) 0.2 K/uL (0.0-0.7); HEMATOCRIT 24 % (39-51); HEMOGLOBIN 7.6 g/dL (13.5-17.5); LYMPHOCYTES # (AUTO) 2.3 K/uL (0.8-4.8); LYMPHOCYTES % (AUTO) 9.7 % (20.0-44.0); MEAN CORPUSCULAR HEMOGLOBIN 27 PG (26.0-33.0); MEAN CORPUSCULAR HGB CONC 31 g/dl (31.0-36.0); MEAN CORPUSCULAR VOLUME 88 fL (80-96); MONOCYTES # (AUTO) 1.6 K/uL (0.1-1.30); MONOCYTES % (AUTO) 6.4 % (2.0-12.0); NEUTROPHILS % (AUTO) 82.6 % (43.0-81.0); PLATELET COUNT (AUTO) 215 K/uL (150-450); RED BLOOD CELL COUNT(AUTO) 2.79 MIL/uL (4.5-6.0); RED CELL DISTRIBUTION WIDTH 16.8 % (11.5-15.0); WHITE BLOOD COUNT (AUTO) 24.2 K/uL (4.3-11.0)
[2023-09-25 08:02] LABS: ALANINE AMINOTRANSFERASE 8 U/L (12-78); ALKALINE PHOSPHATASE 76 U/L (46-116); ASPARTATE AMINOTRANSFERASE 27 U/L (15-37); BILIRUBIN,TOTAL 0.4 mg/dL (0.2-1.0); CALCIUM, SERUM 8.7 mg/dL (8.5-10.1); CARBON DIOXIDE 23 mmol/L (21-32); CHLORIDE 109 mmol/L (98-107); CREATININE 3.5 mg/dL (0.6-1.3); GLUCOSE 154 mg/dL (74-106); POTASSIUM 4.2 mmol/L (3.5-5.1); SODIUM SERUM 143 mmol/L (136-145); TOTAL PROTEIN, SERUM 3.7 g/dL (6.4-8.2); UREA NITROGEN, BLOOD 21 mg/dL (7-18)
[2023-09-25 08:03] LABS: ALBUMIN 1.4 g/dL (3.4-5.0)
[2023-09-25] MEDS ORDERED: PHENYLEPHRINE 50 MG in IV NS 0.9% 245 ML IV PRN (09:30)
[2023-09-25] MEDS: PPN BAG #1 IV SCH (09:57)
[2023-09-25] MEDS: PHENYLEPHRINE 100 MG in IV NS 0.9% 240 ML IV PRN (09:57)
[2023-09-25 10:09] LABS: MAGNESIUM 1.8 mg/dL (1.8-2.4); PHOSPHORUS 3.8 mg/dL (2.5-4.9)
[2023-09-25] MEDS: PANTOPRAZOLE 40 MG VIAL IV SCH (11:08)
[2023-09-25] MEDS: DIGOXIN INJ 0.5 MG/2 ML AMPUL IV SCH (12:13)
[2023-09-25] MEDS ORDERED: DEXTROSE 50%-WATER 50 ML DISP.SYRIN IV PRN ×2 (12:30→14:00)
[2023-09-25] MEDS: BLOOD SUGAR DIAGNOSTIC 1 EACH STRIP IN SCH ×2 (12:47→18:22)
[2023-09-25 15:21] LABS: BASOPHILS # (AUTO) 0.1 K/uL (0.0-0.2); BASOPHILS % (AUTO) 0.3 % (0.0-2.0); EOSINOPHILS # (AUTO) 0.1 K/uL (0.0-0.7); EOSINOPHILS % (AUTO) 0.3 % (0.0-6.0); HEMATOCRIT 24 % (39-51); HEMOGLOBIN 7.5 g/dL (13.5-17.5); LYMPHOCYTES # (AUTO) 2.2 K/uL (0.8-4.8); LYMPHOCYTES % (AUTO) 7.7 % (20.0-44.0); MEAN CORPUSCULAR HEMOGLOBIN 29 PG (26.0-33.0); MEAN CORPUSCULAR HGB CONC 31 g/dl (31.0-36.0); MEAN CORPUSCULAR VOLUME 92 fL (80-96); MONOCYTES # (AUTO) 1.8 K/uL (0.1-1.30); MONOCYTES % (AUTO) 6.3 % (2.0-12.0); NEUTROPHILS # (AUTO) 23.9 K/uL (1.8-8.9); NEUTROPHILS % (AUTO) 85.4 % (43.0-81.0); PLATELET COUNT (AUTO) 205 K/uL (150-450); RED BLOOD CELL COUNT(AUTO) 2.63 MIL/uL (4.5-6.0); RED CELL DISTRIBUTION WIDTH 15.7 % (11.5-15.0)
[2023-09-25] MEDS ORDERED: ACETAMINOPHEN 325 MG TABLET PO ONE (15:30)
[2023-09-25 16:58] LABS: BAND % (MANUAL) 1 % (0.0-5.0); EOSINOPHILS % (MANUAL) 1 % (0-4); LYMPHOCYTES % (MANUAL) 13 % (16-48); MONOCYTES % (MANUAL) 2 % (0-11.0); NEUTROPHILS % (MANUAL) 83 (42-76)
[2023-09-25 16:59] LABS: ANISOCYTOSIS 1+; PLATELET ESTIMATE ADEQU
[2023-09-25 17:00] LABS: D-DIMER 0.74 mg/L(FEU (0.17-0.50); INR 1.48 (0.91-1.10); PARTIAL THROMBOPLASTIN TIME 42.8 SEC (24.3-34.3); PROTHROMBIN TIME 15.3 SECS (9.2-11.1)
[2023-09-25] MEDS: ACETAMINOPHEN 325 MG TABLET MC ONE (20:00)
[2023-09-25] MEDS: ACETAMINOPHEN 650 MG/SUPP.RECT RC PRN (20:34)
[2023-09-25] MEDS: diphenhydrAMINE HCL 50 MG/ML VIAL IV ONE (20:34)
[2023-09-25] MEDS: diphenhydrAMINE HCL 50 MG/ML VIAL IV PRN (20:37)
[2023-09-25] MEDS ORDERED: VANCOMYCIN 500 MG in IV D5W 100 ML IV PRN (21:30)
[2023-09-25] MEDS: MEROPENEM 500 MG in IV NS 0.9% 50 ML IV SCH (21:42)
[2023-09-25] MEDS ORDERED: VANCOMYCIN 1 GM in IV D5W 250ml IV ONE (22:00)
[2023-09-26] MEDS ORDERED: CALCIUM CHLORIDE 1,000 MG/10 ML DISP.SYRIN IV ONE (03:15)
[2023-09-26] MEDS ORDERED: SODIUM BICARBONATE SYR 50 MEQ/50 ML DISP.SYRIN IV ONE (11:27)
[2023-09-26] MEDS ORDERED: EPINEPHRINE (1:10,000) SYRINGE 1 MG/10 ML DISP.SYRIN IVP ONE (11:27)
== END 2023-09-25 22:03 | DRG 853 ==
LOC: ER 15:23 → MED 18:44 → TELE 20:02 → MED 09-10 10:50 → TELE 09-17 → ICU 09-18 14:39 → UNDODISIN 09-26 03:16
PROVIDERS: ADMIT Internal Medicine; ATTEND Internal Medicine
PROC: 5A1D70Z Performance of Urinary Filtration, Intermittent, Less than 6 Hours Per Day (ICD-10-PCS; 2023-09-10)
PROC: 0JBQ0ZZ Excision of Right Foot Subcutaneous Tissue and Fascia, Open Approach (ICD-10-PCS; principal; 2023-09-15)
PROC: 0JBR0ZZ Excision of Left Foot Subcutaneous Tissue and Fascia, Open Approach (ICD-10-PCS; 2023-09-15)
PROC: B410YZZ Fluoroscopy of Abdominal Aorta using Other Contrast (ICD-10-PCS; 2023-09-18)
PROC: B41GYZZ Fluoroscopy of Left Lower Extremity Arteries using Other Contrast (ICD-10-PCS; 2023-09-18)
PROC: 047U3ZZ Dilation of Left Peroneal Artery, Percutaneous Approach (ICD-10-PCS; 2023-09-18)
PROC: 0JBR0ZZ Excision of Left Foot Subcutaneous Tissue and Fascia, Open Approach (ICD-10-PCS; 2023-09-18)
PROC: 0JBQ0ZZ Excision of Right Foot Subcutaneous Tissue and Fascia, Open Approach (ICD-10-PCS; 2023-09-18)
PROC: 05HD33Z Insertion of Infusion Device into Right Cephalic Vein, Percutaneous Approach (ICD-10-PCS; 2023-09-19)
PROC: B54MZZA Ultrasonography of Right Upper Extremity Veins, Guidance (ICD-10-PCS; 2023-09-19)
PROC: 06HM33Z Insertion of Infusion Device into Right Femoral Vein, Percutaneous Approach (ICD-10-PCS; 2023-09-20)
PROC: B54BZZA Ultrasonography of Right Lower Extremity Veins, Guidance (ICD-10-PCS; 2023-09-20)
PROC: 0W3P8ZZ Control Bleeding in Gastrointestinal Tract, Via Natural or Artificial Opening Endoscopic (ICD-10-PCS; 2023-09-21)
PROC: 0DB68ZX Excision of Stomach, Via Natural or Artificial Opening Endoscopic, Diagnostic (ICD-10-PCS; 2023-09-21)
PROC: 0JBR0ZZ Excision of Left Foot Subcutaneous Tissue and Fascia, Open Approach (ICD-10-PCS; 2023-09-22)
PROC: 0JBQ0ZZ Excision of Right Foot Subcutaneous Tissue and Fascia, Open Approach (ICD-10-PCS; 2023-09-22)
PROC: 30233N1 Transfusion of Nonautologous Red Blood Cells into Peripheral Vein, Percutaneous Approach (ICD-10-PCS; 2023-09-24)
PROC: 5A12012 Performance of Cardiac Output, Single, Manual (ICD-10-PCS; 2023-09-25)
PROC: 5A2204Z Restoration of Cardiac Rhythm, Single (ICD-10-PCS; 2023-09-25)
PROC: 0BH18EZ Insertion of Endotracheal Airway into Trachea, Via Natural or Artificial Opening Endoscopic (ICD-10-PCS; 2023-09-25)
DX: A41.9 Sepsis, unspecified organism (principal); G93.41 Metabolic encephalopathy; N18.6 End stage renal disease; K26.4 Chronic or unspecified duodenal ulcer with hemorrhage; K29.71 Gastritis, unspecified, with bleeding; L03.115 Cellulitis of right lower limb; I13.2 Hypertensive heart and chronic kidney disease with heart failure and with stage 5 chronic kidney disease, or end stage renal disease; L97.419 Non-pressure chronic ulcer of right heel and midfoot with unspecified severity; L97.429 Non-pressure chronic ulcer of left heel and midfoot with unspecified severity; E44.0 Moderate protein-calorie malnutrition; E87.1 Hypo-osmolality and hyponatremia; I50.32 Chronic diastolic (congestive) heart failure; I47.20 Ventricular tachycardia, unspecified; J98.11 Atelectasis; L97.528 Non-pressure chronic ulcer of other part of left foot with other specified severity; L03.116 Cellulitis of left lower limb; E11.22 Type 2 diabetes mellitus with diabetic chronic kidney disease; I48.91 Unspecified atrial fibrillation; D64.9 Anemia, unspecified; E78.5 Hyperlipidemia, unspecified; E88.09 Other disorders of plasma-protein metabolism, not elsewhere classified; M89.8X9 Other specified disorders of bone, unspecified site; R13.10 Dysphagia, unspecified; Z79.01 Long term (current) use of anticoagulants; Z79.4 Long term (current) use of insulin; Z20.822 Contact with and (suspected) exposure to COVID-19; I25.10 Atherosclerotic heart disease of native coronary artery without angina pectoris; D72.829 Elevated white blood cell count, unspecified; R74.01 Elevation of levels of liver transaminase levels; R79.1 Abnormal coagulation profile; F03.90 Unspecified dementia, unspecified severity, without behavioral disturbance, psychotic disturbance, mood disturbance, and anxiety; Z99.2 Dependence on renal dialysis; E11.51 Type 2 diabetes mellitus with diabetic peripheral angiopathy without gangrene; L89.620 Pressure ulcer of left heel, unstageable; R22.0 Localized swelling, mass and lump, head; K76.0 Fatty (change of) liver, not elsewhere classified; I70.245 Atherosclerosis of native arteries of left leg with ulceration of other part of foot; K20.90 Esophagitis, unspecified without bleeding; Z68.30 Body mass index [BMI] 30.0-30.9, adult; R16.2 Hepatomegaly with splenomegaly, not elsewhere classified; Z89.411 Acquired absence of right great toe; Z90.79 Acquired absence of other genital organ(s); E11.621 Type 2 diabetes mellitus with foot ulcer
CPT/HCPCS: 36246; 36415; 71045-TC; 73620-TC; 75625; 80048-TC; 80053-TC; 80076-TC; 80202-TC; 82272-TC; 82607-TC; 82728-TC; 82784; 82962-TC; 83540-TC; 83605-TC; 83735-TC; 84100-TC; 84155; 84165; 84443-TC; 84484-TC; 85025-TC; 85027-TC; 85045-TC; 85385-TC; 85396; 85610-TC; 85730-TC; 86334; 86706; 86803; 86850-TC; 87040-TC; 87340; 87806; 88305-TC; 88313-TC; 88341; 88342; 90935-TC; 92526; 92611-TC; A4223; A6253; A6403; C1725; C1769; C1887; C1894; C9113; G0378; J0171; J0282; J0360; J0690; J0692; J1160; J1200; J1644; J1815; J2185; J2248; J2270; J2405; J2704; J2765; J3370; J3430; J3480; J3490; J7030; J7040; J7050; J7060; J8597; P9016; Q9967